=== PATIENT | female | born 1955 | race Caucasian/White ===

== ENCOUNTER 2022-10-01 12:37 | Outpatient (RCR) | payer MEDICARE, OTHER, SELFPAY | END 2022-10-27 13:42 | disposition home or self-care (01) | LOC: PT 12:37 | PROVIDERS: PCP Family Medicine; Visit Provider Family Medicine | DX: M54.9 Dorsalgia, unspecified (principal); M54.2 Cervicalgia; M25.531 Pain in right wrist | CPT/HCPCS: 97010; 97110; 97140; 97161 ==

== ENCOUNTER 2022-10-21 12:03 | Outpatient (RCR) | payer MEDICARE, OTHER, SELFPAY | END 2022-11-18 16:30 | disposition home or self-care (01) | LOC: OT 12:03 | PROVIDERS: PCP Family Medicine; Visit Provider Family Medicine | DX: M25.531 Pain in right wrist (principal) | CPT/HCPCS: 97018; 97140; 97165; 97530; G0283 ==

== ENCOUNTER 2023-05-12 11:22 | Outpatient (OUT) | payer MEDICARE, OTHER, SELFPAY ==
--- NOTE | 2023-05-12 11:33 | MM_ITS ---
Patient Name: FATUMA OLIVAS MR#: [id number] : 1955 Exam Date: 05/12/2023 Ordering Doctor: DR Mikey Preston . RADIOLOGY REPORT PROCEDURE: MM TOMOSYNTHESIS SCREENING BI COMPARISON: MAMMO SCREEN DIG SHERINE, 02/15/2012. INDICATIONS: screening Calculator Name NCI Breast Cancer Risk Assessment Tool 5 Year Breast Cancer Risk 1.70% Lifetime Breast Cancer Risk 5.70% Personal Breast Cancer No Personal Ovarian Cancer No Treatments None Family Cancers Mother with lung cancer at age 74; Father with lung cancer at age 45. LOCATION: [facility] BREAST COMPOSITION: Scattered areas fibroglandular density. FINDINGS: DIAGNOSTIC CATEGORY 1--NEGATIVE. RIGHT BREAST: No significant suspicious finding. No significant change has occurred. LEFT BREAST: No significant suspicious finding. No significant change has occurred. RECOMMENDATIONS: ROUTINE MAMMOGRAM AND CLINICAL EVALUATION IN 12 MONTHS. PLEASE NOTE: A NORMAL MAMMOGRAM DOES NOT EXCLUDE THE POSSIBILITY OF BREAST CANCER. A CLINICALLY SUSPICIOUS PALPABLE LUMP SHOULD BE BIOPSIED. Dictated by: Cesar Joshua M.D. on 05/12/2023 at 15:43 Approved by: Cesar Joshua M.D. on 05/12/2023 at 15:45
[2023-05-12 11:51] LABS: Estimated Average Glucose 100 mg/dL; Glycohemoglobin A1C 5.1 % (4.5-6.2)
== END 2023-05-12 11:23 | disposition home or self-care (01) ==
LOC: LAB 11:22
PROVIDERS: PCP Family Medicine; Visit Provider Family Medicine
DX: E11.65 Type 2 diabetes mellitus with hyperglycemia (principal); Z12.31 Encounter for screening mammogram for malignant neoplasm of breast; Z80.1 Family history of malignant neoplasm of trachea, bronchus and lung
CPT/HCPCS: 36415; 77063; 77067; 83036

== ENCOUNTER 2023-06-15 13:29 | Outpatient (OUT) | payer MEDICARE, SELFPAY ==
--- OUTSIDE RECORDS SUMMARY | 2023-06-15 13:37 | XMS_ITS | CCD ---
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 Name Role Phone SAMANTHA, DR ALDO Keith Attending Unavailable NADERER, DR ALDO Keith Admitting Unavailable NADERER, DR ALDO Keith Primary Care Unavailable NADERER, DR ALDO Keith Attending Unavailable NADERER, DR ALDO Keith Admitting Unavailable WEST, DR SUNNY Belle Consulting Unavailable NADERER, DR ALDO Keith Primary Care Unavailable NADERER, DR ALDO Keith Consulting Unavailable NADERER, DR ALDO Keith Consulting Unavailable NADERER, DR ALDO Keith Attending Unavailable NADERER, DR ALDO Keith Admitting Unavailable NADERER, DR ALDO Keith Primary Care Unavailable ISMAEL, GUMARO Consulting Unavailable NADERER, ALDO Attending Unavailable Naderer Aldo MORRISON Primary Care Provider Allergies Allergy Classification Reported Allergen(s) Allergy Type Date of Onset Reaction(s) Facility (2 sources) Amino Acids Drug Allergy 5 [facility] Repository (1 source) Penicillins Drug allergy (disorder) 5 [facility] (2 sources) Verapamil Drug Allergy 5 [facility] (1 source) Angiotensin-conve rting enzyme inhibitor agent Drug Allergy 4 Unknown [facility] (1 source) Influenza Vaccines Drug Allergy 4 Unknown [facility] (1 source) Lisinopril Propensity to adverse reactions 4 Cough [facility] (1 source) Nortriptyline Drug Allergy 4 Unknown [facility] (1 source) Penicillins Drug Allergy 4 Unknown [facility] (1 source) Verapamil Drug Allergy 4 Other [facility] Medications Current Medications Medication Drug Class(es) Dates Sig (Normalized) Sig (Original) [id number] 200 actuat albuterol 0.09 mg/actuat metered dose inhaler (1 source) beta2-Adrenergic Agonist take 2 puff(s) by inhalation every four hours for wheezing albuterol HFA 90 mcg/act inhaler Inhale 2 puffs every 4 (four) hours if needed for wheezing 0 Active busPIRone hydrochloride 30 mg oral tablet (1 source) Start: 04-29-2023 take 1 tablet by mouth twice daily busPIRone (Buspar) 30 MG tablet Indications: Anxiety Take 1 tablet by mouth twice daily 180 tablet 3 04/29/2023 Active carvedilol 25 mg oral tablet (1 source) alpha-Adrenergic Dang, beta-Adrenergic Dang Start: 04-29-2023 take 1 tablet by mouth twice daily carvedilol (Coreg) 25 MG tablet Indications: Primary hypertension (CMS/HCC) Take 1 tablet by mouth twice daily 180 tablet 3 04/29/2023 Active celecoxib 200 mg oral capsule (1 source) Nonsteroidal Anti-inflammatory Drug Start: 04-29-2023 take 1 capsule by mouth twice daily celecoxib (CeleBREX) 200 MG capsule Indications: DDD (degenerative disc disease), lumbar Take 1 capsule by mouth twice daily 180 capsule 3 04/29/2023 Active estradiol 2 mg oral tablet (1 source) Estrogen Start: 02-03-2023 take 1 tablet by mouth in the morning estradiol (Estrace) 2 MG tablet Take 1 tablet by mouth in the morning. 0 02/03/2023 Active FLUoxetine 20 mg oral capsule (1 source) Serotonin Reuptake Inhibitor Start: 04-29-2023 take 1 capsule by mouth once daily FLUoxetine (PROzac) 20 MG capsule Indications: Depression, unspecified depression type (CMS/HCC) Take 1 capsule by mouth once daily 90 capsule 3 04/29/2023 Active ketorolac tromethamine 5 mg/ml ophthalmic solution (1 source) Nonsteroidal Anti-inflammatory Drug, Cyclooxygenase Inhibitor Start: 03-29-2023 ketorolac (Acular) 0.5 % ophthalmic solution Administer 1 drop into both eyes in the morning and 1 drop at noon and 1 drop in the evening and 1 drop before bedtime. 0 03/29/2023 Active losartan potassium 50 mg oral tablet (1 source) Angiotensin 2 Receptor Dang Start: 02-03-2023 take 1 tablet by mouth in the morning losartan (Cozaar) 50 MG tablet Take 1 tablet by mouth in the morning. 0 02/03/2023 Active pantoprazole 40 mg delayed release oral tablet (1 source) Proton Pump Inhibitor Start: 02-03-2023 take 1 tablet by mouth in the morning pantoprazole (ProtoNix) 40 MG EC tablet Take 1 tablet by mouth in the morning. 0 02/03/2023 Active microencapsulated potassium chloride 20 meq extended release oral tablet (2 sources) Start: 06-14-2023 take 1 tablet by mouth in the morning potassium chloride CR (Klor-Con M20) 20 MEQ ER tablet Indications: Hypokalemia Take 1 tablet (20 mEq) by mouth in the morning and 1 tablet (20 mEq) before bedtime. 180 tablet 3 06/14/2023 Active Start: 11-02-2022 End: 06-14-2023 take 1 tablet by mouth in the morning potassium chloride CR (Klor-Con M20) 20 MEQ ER tablet Take 1 tablet by mouth in the morning and 1 tablet before bedtime. 0 11/02/2022 06/14/2023 Discontinued (Reorder) rosuvastatin calcium 20 mg oral tablet (1 source) HMG-CoA Reductase Inhibitor Start: 02-03-2023 take 1 tablet by mouth at bedtime rosuvastatin (Crestor) 20 MG tablet Take 1 tablet by mouth at bedtime 0 02/03/2023 Active traMADol hydrochloride 50 mg oral tablet (1 source) Opioid Agonist Start: 03-30-2023 take 1 tablet by mouth every six hours as needed traMADol (Ultram) 50 MG tablet Take 1 tablet by mouth every 6 (six) hours if needed 0 03/30/2023 Active traZODone hydrochloride 100 mg oral tablet (1 source) Serotonin Reuptake Inhibitor Start: 04-29-2023 take 1 tablet by mouth at bedtime traZODone (Desyrel) 100 MG tablet Indications: Primary insomnia TAKE 1 TABLET BY MOUTH AT BEDTIME 90 tablet 3 04/29/2023 Active zolpidem tartrate 10 mg oral tablet (2 sources) gamma-Aminobutyr ic Acid-ergic Agonist Start: 04-29-2023 End: 06-14-2023 take 1 tablet by mouth at bedtime zolpidem (Ambien) 10 MG tablet Indications: Primary insomnia Take 1 tablet (10 mg) by mouth at bedtime 90 tablet 1 06/14/2023 Active Problems Problem Classification Problem Date Documented Date Episodic/Chronic Anxiety disorders (1 source) Generalized anxiety disorder; Translations: [Generalized anxiety disorder] Onset: 05-10-2023 05-10-2023 Chronic Conditions associated with dizziness or vertigo (1 source) Vertigo; Translations: [Dizziness and giddiness] Onset: 05-10-2023 05-10-2023 Episodic Diabetes mellitus with complications (1 source) Type 2 diabetes mellitus; Translations: [Type 2 diabetes mellitus with hyperglycemia] Onset: 05-10-2023 05-10-2023 Chronic Disorders of lipid metabolism (2 sources) Hyperlipidemia, unspecified; Translations: [Dyslipidemia] Onset: 09-19-2022 05-10-2023 Chronic Esophageal disorders (1 source) Gastroesophageal reflux disease; Translations: [Gastro-esophageal reflux disease without esophagitis] Onset: 05-10-2023 05-10-2023 Chronic Essential hypertension (5 sources) Essential (primary) hypertension; Translations: [Benign hypertension] Onset: 09-17-2022 Chronic Fluid and electrolyte disorders (2 sources) Hypokalemia; Translations: [Hypokalemia] Onset: 05-10-2023 06-14-2023 Episodic Glaucoma (1 source) Primary open angle glaucoma; Translations: [Primary open-angle glaucoma, unspecified eye, stage unspecified] Onset: 12-13-2013 05-10-2023 Chronic Miscellaneous mental health disorders (2 sources) Primary insomnia; Translations: [Primary insomnia] Onset: 05-10-2023 06-14-2023 Chronic Other aftercare (1 source) Other terminal superintendent (current) drug therapy; Translations: [OTH SNF CURRENT DRUG THERAPY] Onset: 09-19-2022 Episodic Other non-traumatic joint disorders (1 source) Pain in right wrist; Translations: [PAIN IN RIGHT WRIST] Onset: 09-19-2022 Episodic Other non-traumatic joint disorders (1 source) Pain in right knee; Translations: [Pain in joint, lower leg] Onset: 05-10-2023 05-10-2023 Episodic Spondylosis; intervertebral disc disorders; other back problems (7 sources) Other cervical disc degeneration, unspecified cervical region; Translations: [Other intervertebral disc degeneration, lumbar region] Onset: 09-19-2022 Chronic Spondylosis; intervertebral disc disorders; other back problems (1 source) Degenerative cervical spinal stenosis; Translations: [Spinal stenosis, cervical region] Onset: 05-10-2023 05-10-2023 Episodic Thyroid disorders (2 sources) Hypothyroidism, unspecified; Translations: [Acquired hypothyroidism] Onset: 09-19-2022 05-10-2023 Chronic Results Test Name Value Interpretation Reference Range Facility MRI CSPINE WO CONon 09-26-19 23 MRI CSPINE WO CON EXAMINATION: MRI CSPINE WO CON HISTORY: Degeneration of cervical intervertebral disc COMPARISON: No relevant comparison available. TECHNIQUE: A variety of imaging planes and parameters were utilized for visualization of suspected pathology. FINDINGS: CRANIOCERVICAL AREA: Normal foramen magnum with no Chiari malformation. PARASPINAL AREA: Normal with no visible mass. BONES: Normal alignment with no acute fracture or spondylolisthesis. Signal dropout C5-C6 from anterior fixation hardware CORD: Normal caliber, contour, and signal intensity. CERVICAL DISC LEVELS: C2-C3: No significant disc/facet abnormality, spinal stenosis, or foraminal stenosis. C3-C4: No significant disc/facet abnormality, spinal stenosis, or foraminal stenosis. C4-C5: No significant disc/facet abnormality, spinal stenosis, or foraminal stenosis. C5-C6: Signal dropout from susceptibility artifact limits evaluation C6-C7: No significant disc/facet abnormality, spinal stenosis, or foraminal stenosis. C7-T1:. No significant disc/facet abnormality, spinal stenosis, or foraminal stenosis. IMPRESSION: Signal dropout limiting evaluation of C5-C6 No central or foraminal stenosis observed Electronically authenticated by: SUNNY VIRAMONTES Date: 2022-09-25 12:52 Normal [facility] MRI LSPINE WO CONon 09-26-19 23 MRI LSPINE WO CON EXAMINATION: MRI LSPINE WO CON HISTORY: Degeneration of lumbar intervertebral disc COMPARISON: No relevant comparison available. TECHNIQUE: A variety of imaging planes and parameters were utilized for visualization of suspected pathology. FINDINGS: For the purposes of numbering, sagittal T2 image # T2 extends from the T10 vertebral body superiorly to the S4 level inferiorly. PARASPINAL AREA: Normal with no visible mass. BONES: Normal alignment with no acute fracture or spondylolisthesis. Decreased T1 increased T2 and STIR signal lower endplate of L2 of endplate of L3, Modic 1 changes. Heterogeneous appearance of the marrow likely age-related change. Moderate spondylosis and facet osteoarthropathy CORD/CAUDA EQUINA: Normal caliber, contour, and signal intensity. DISC LEVELS: 12-L1: Disc collapse with endplate sclerosis. Mild diffuse disc/osteophyte complex. No central or foraminal stenosis L1-L2: Moderate disc space narrowing and disc desiccation. Mild diffuse disc/osteophyte complex. No central or foraminal stenosis L2-L3: Moderate to severe disc space narrowing left greater than right with endplate sclerosis. Moderate diffuse disc/osteophyte complex and ligamentum flavum hypertrophy and facet osteoarthropathy. Mild trefoil narrowing of the central canal. No right foraminal stenosis. Moderate narrowing of the left neural foramen L3-L4: Moderate to severe disc space narrowing left greater than right with endplate sclerosis. Moderate diffuse disc/osteophyte complex and ligamentum flavum hypertrophy and facet osteoarthropathy. Mild trefoil narrowing of the central canal. Moderate bilateral foraminal stenosis L4-L5: Disc collapse with extensive endplate sclerosis. Moderate diffuse disc/osteophyte complex and ligamentum flavum hypertrophy and facet osteoarthropathy. Mild central canal stenosis. Severe right and moderate left foraminal stenosis L5-S1: Disc space narrowing and disc desiccation. Severe right facet osteoarthropathy. No central canal or left foraminal stenosis. Moderate narrowing of the right neural foramen IMPRESSION: Significant degenerative changes with central and foraminal stenosis at multiple levels as detailed above Electronically authenticated by: SUNNY VIRAMONTES Date: 2022-09-25 12:04 Normal [facility] CBC AUTO DIFFon 09-17-2022 BASO # 0.0 103/ul Normal 0.0-0.1 [facility] Comment on above: Performed By: #### C BC ####[facility] [id number] [address]DrLeah Moreno Basophils/100 WBC (Bld) 0.4 % Normal 0.2-2.0 [facility] Comment on above: Performed By: #### C BC ####[facility] [address] [address]DrLeah Moreno EO # 0.2 103/ul Normal 0.0-0.7 [facility] Comment on above: Performed By: #### C BC ####[facility] [address] [place], [place] [address]Dr. Paola Moreno Eosinophils/100 WBC (Bld) 2.9 % Normal 0.9-7.0 [facility] Comment on above: Performed By: #### C BC ####[facility] [address] [place], [place] [address]Dr. Paola Moreno Erythrocyte distribution width (RBC) [Ratio] 13.6 % Normal 11.0-15.0 [facility] Comment on above: Performed By: #### C BC ####[facility] [address] [place], [place] [address]Dr. Paola Moreno Hematocrit (Bld) [Volume fraction] 44.1 % Normal 36.0-48.0 [facility] Comment on above: Performed By: #### C BC ####[facility] [address] [place], [place] [address]Dr. Paola Moreno Hemoglobin (Bld) [Mass/Vol] 14.6 g/dL Normal 12.0-16.0 [facility] Comment on above: Performed By: #### C BC ####[facility] [address] [place], [place] [address]Dr. Paola Moreno IG # 0.03 10e3/ul Normal 0.00-0.03 [facility] Comment on above: Performed By: #### C BC ####[facility] [address] [place], [place] [address]Dr. Paola Josh IG % 0.4 % Normal 0.0-0.5 [facility] Comment on above: Performed By: #### C BC ####[facility] [address] [place], [place] [address]Dr. Paola Moreno LYMPH # 1.4 103/ul Normal 1.2-3.8 [facility] Comment on above: Performed By: #### C BC ####[facility] [address] [place], [place] [address]Dr. Paola Moreno Lymphocytes/100 WBC (Bld) 17.2 % Critically low 20.5-60.0 [facility] Comment on above: Performed By: #### C BC ####[facility] [address] [address]Dr. Paola Moreno MANUAL DIFF REQ NO Normal [facility] Comment on above: Performed By: #### C BC ####[facility] [address] [address]Dr. Paola Moreno MCH (RBC) [Entitic mass] 29.6 pg Normal 26.7-34.0 [facility] Comment on above: Performed By: #### C BC ####[facility] [address] [place], [place] [address]Dr. Paola Moreno MCHC (RBC) [Mass/Vol] 33.1 g/dL Normal 29.9-35.2 [facility] Comment on above: Performed By: #### C BC ####[facility] [address] [place], [place] [address]Dr. Paola Moreno MCV (RBC) [Entitic vol] 89.3 fL Normal 81.0-99.0 [facility] Comment on above: Performed By: #### C BC ####[facility] [address] [place], [place] [address]Dr. Paola Moreno MONO # 0.7 103/ul Normal 0.3-0.8 [facility] Comment on above: Performed By: #### C BC ####[facility] [address] [place], [place] [address]Dr. Paola Moreno Monocytes/100 WBC (Bld) 7.8 % Normal 1.7-12.0 [facility] Comment on above: Performed By: #### C BC ####[facility] [address] [place], [place] [address]Dr. Paola Moreno NEUT # 6.0 103/ul Normal 1.4-6.5 [facility] Comment on above: Performed By: #### C BC ####[facility] [address] [place], [place] [address]Dr. Paola Moreno Neutrophils/100 WBC (Bld) 71.3 % Normal 43.0-75.0 [facility] Comment on above: Performed By: #### C BC ####[facility] [address] [address]Dr. Paola Moreno Platelet mean volume (Bld) [Entitic vol] 10.6 fL Normal 9.5-13.5 [facility] Comment on above: Performed By: #### C BC ####[facility] [address] [address]Dr. Paola Moreno PLT 191 103/ul Normal 150-450 [facility] Comment on above: Performed By: #### C BC ####[facility] [address] [address]Dr. Paola Moreno RBC 4.94 106/ul Normal 4.20-5.40 [facility] Comment on above: Performed By: #### C BC ####[facility] [address] [address]DrLeah Moreno WBC 8.4 103/ul Normal 4.0-11.0 [facility] Comment on above: Performed By: #### C BC ####[facility] [address] [address]Dr. Paola Moreno FREE T3on 09-17-2022 FREE T3 2.55 pg/mlL Normal 2.18-3.98 [facility] Comment on above: Performed By: #### T SH, LIPID, BMP, LIVER, FT3 #### [facility] [address] [address] [address] Paola Moreno FREE T4on 09-17-2022 Free T4 [Mass/Vol] 0.84 ng/dL Normal 0.76-1.46 [facility] Comment on above: Performed By: #### F T4 #### [facility] [address] [place] [address] Dr. Paola Moreno GLYCOHEMOGLOBIN A1Con 2022 ADA RECOMMENDATION SEE BELOW Normal [facility] Comment on above: Result Comment: ADA RECOMMENDED LIMIT 4.0 - 6.0 ADA THERAPEUTIC TARGET < 7.0 ACTION SUGGESTED > 7.0 Performed By: #### A 1C #### [facility] [address] [address] [address] Paola Moreno Glucose [Mass/Vol] 85 mg/dL Normal [facility] Comment on above: Performed By: #### A 1C #### [facility] [address] [address] [address] Paola Moreno HbA1c (Bld) [Mass fraction] 4.6 % Normal 4.5-6.2 [facility] Comment on above: Performed By: #### A 1C #### [facility] [address] [place] [address] Dr. Paola Moreno LIPID PROFILEon 09-17-2022 CHOL-HDL RATIO NORM SEE BELOW Normal [facility] Comment on above: Result Comment: 3.3 - 4.4 LOW RISK 4.4 - 7.1 AVERAGE RISK 7.1 - 11.0 MODERATE RISK >11.0 HIGH RISK Performed By: #### T SH, LIPID, BMP, LIVER, FT3 #### [facility] [address] [address] [address] Paola Moreno Cholesterol [Mass/Vol] 162 mg/dL Normal <=200 [facility] Comment on above: Performed By: #### T SH, LIPID, BMP, LIVER, FT3 #### [facility] [address] [address] [address] Paola Moreno Cholesterol in HDL [Mass/Vol] 88 mg/dL Critically high 40-60 [facility] Comment on above: Performed By: #### T SH, LIPID, BMP, LIVER, FT3 #### [facility] [address] [address] [address] Paola Moreno Cholesterol in LDL [Mass/Vol] 38.2 mg/dL Normal [facility] Comment on above: Performed By: #### T SH, LIPID, BMP, LIVER, FT3 #### [facility] [address] [address] [address] Paola Moreno Cholesterol.total/Cho lesterol in HDL [Mass ratio] 1.8 {ratio} Normal [facility] Comment on above: Performed By: #### T SH, LIPID, BMP, LIVER, FT3 #### [facility] [address] [address] [address] Paola Moreno HDL NORMAL > or = 60 mg/dl - LO W CARDIOVASCULAR RISK <40 mg/dl - HIGH CARDIOVASCULAR RISK Normal [facility] Comment on above: Performed By: #### T SH, LIPID, BMP, LIVER, FT3 #### [facility] [address] [address] [address] Paola Moreno LDL CALC NORMAL SEE BELOW Normal [facility] Comment on above: Result Comment: <100 mg/dl OPTIMAL 100 - 129 mg/dl NEAR OR ABOVE OPTIMAL 130 - 159 mg/dl BORDERLINE HIGH 160 - 189 mg/dl HIGH >190 mg/dl VERY HIGH Performed By: #### T SH, LIPID, BMP, LIVER, FT3 #### [facility] [address] [address] [address] Paola Moreno Triglyceride [Mass/Vol] 179 mg/dL Critically high <=150 [facility] Comment on above: Performed By: #### T SH, LIPID, BMP, LIVER, FT3 #### [facility] [address] [address] [address] Paola Moreno VLDL CALC 35.8 mg/dL Normal [facility] Comment on above: Performed By: #### T SH, LIPID, BMP, LIVER, FT3 #### [facility] [address] [address] [address] Paola Moreno LIVER PROFILEon 09-17-2022 Albumin [Mass/Vol] 3.3 g/dL Critically low 3.4-5.0 [facility] Comment on above: Performed By: #### T SH, LIPID, BMP, LIVER, FT3 #### [facility] [address] [address] [address] Paola Moreno Albumin/Globulin [Mass ratio] 0.8 {ratio} Normal [facility] Comment on above: Performed By: #### T SH, LIPID, BMP, LIVER, FT3 #### [facility] [address] [address] [address] Paola Moreno ALP [Catalytic activity/Vol] 69 U/L Normal 46-116 [facility] Comment on above: Performed By: #### T SH, LIPID, BMP, LIVER, FT3 #### [facility] [address] [place] [address] Dr. Paola Moreno ALT [Catalytic activity/Vol] 24 U/L Normal 14-59 [facility] Comment on above: Performed By: #### T SH, LIPID, BMP, LIVER, FT3 #### [facility] [address] [place] [address] Dr. Paola Moreno AST [Catalytic activity/Vol] 20 U/L Normal 15-37 [facility] Comment on above: Performed By: #### T SH, LIPID, BMP, LIVER, FT3 #### [facility] [address] [place] [address] Dr. Paola Moreno BILI, CONJUGATED 0.1 mg/dL Normal 0.0-0.2 [facility] Comment on above: Performed By: #### T SH, LIPID, BMP, LIVER, FT3 #### [facility] [address] [place] [address] Dr. Paola Moreno Bilirubin [Mass/Vol] 0.4 mg/dL Normal 0.2-1.0 [facility] Comment on above: Performed By: #### T SH, LIPID, BMP, LIVER, FT3 #### [facility] [address] [place] [address] Dr. Paola Moreno Globulin (S) [Mass/Vol] 4.0 g/dL Normal [facility] Comment on above: Performed By: #### T SH, LIPID, BMP, LIVER, FT3 #### [facility] [address] [place] [address] Dr. Paola Moreno Protein [Mass/Vol] 7.3 g/dL Normal 6.4-8.2 [facility] Comment on above: Performed By: #### T SH, LIPID, BMP, LIVER, FT3 #### [facility] [address] [place] [address] Dr. Paola Moreno PROF CHEM 8 (BAS METB)on Anion gap [Moles/Vol] 11.8 mmol/L Normal Th e [facility] Comment on above: Performed By: #### T SH, LIPID, BMP, LIVER, FT3 #### [facility] [address] [address] [address] Paola Moreno Calcium [Mass/Vol] 9.0 mg/dL Normal 8.5-10.1 [facility] Comment on above: Performed By: #### T SH, LIPID, BMP, LIVER, FT3 #### [facility] [address] [address] [address] Paola Moreno Chloride [Moles/Vol] 103 mmol/L Normal 98-107 [facility] Comment on above: Performed By: #### T SH, LIPID, BMP, LIVER, FT3 #### [facility] [address] [place] [address] Dr. Paola Moreno CO2 [Moles/Vol] 30.5 mmol/L Normal 21.0-32.0 [facility] Comment on above: Performed By: #### T SH, LIPID, BMP, LIVER, FT3 #### [facility] [address] [place] [address] Dr. Paola Moreno Creatinine [Mass/Vol] 0.83 mg/dL Normal 0.55-1.02 [facility] Comment on above: Performed By: #### T SH, LIPID, BMP, LIVER, FT3 #### [facility] [address] [place] [address] Dr. Paola Moreno EGFR-AF ANGOLAN >60 Normal >=60 [facility] Comment on above: Performed By: #### T SH, LIPID, BMP, LIVER, FT3 #### [facility] [address] [place] [address] Dr. Paola Moreno EGFR-NON AF ANGOLAN >60 Normal >=60 [facility] Comment on above: Performed By: #### T SH, LIPID, BMP, LIVER, FT3 #### [facility] [address] [address] [address] Paola Moreno Glucose [Mass/Vol] 122 mg/dL Critically high 74-106 [facility] Comment on above: Performed By: #### T SH, LIPID, BMP, LIVER, FT3 #### [facility] [address] [address] [address] Paola Moreno Potassium [Moles/Vol] 4.3 mmol/L Normal 3.5-5.1 [facility] Comment on above: Performed By: #### T SH, LIPID, BMP, LIVER, FT3 #### [facility] [address] [address] [address] Paola Moreno Sodium [Moles/Vol] 141 mmol/L Normal 136-145 [facility] Comment on above: Performed By: #### T SH, LIPID, BMP, LIVER, FT3 #### [facility] [address] [address] [address] Paola Moreno Urea nitrogen [Mass/Vol] 12.0 mg/dL Normal 7.0-18.0 [facility] Comment on above: Performed By: #### T SH, LIPID, BMP, LIVER, FT3 #### [facility] [address] [address] [address] Paola Moreno Urea nitrogen/Creatinine [Mass ratio] 14.5 mg/mg Normal [facility] Comment on above: Performed By: #### T SH, LIPID, BMP, LIVER, FT3 #### [facility] [address] [place] [address] Dr. Paola Moreno TSHon 09-17-2022 TSH 3.671 uIU/mL Normal 0.358-3.740 [facility] Comment on above: Performed By: #### T SH, LIPID, BMP, LIVER, FT3 #### [facility] [address] [place] [address] Dr. Paola Moreno XR WRIST RT MIN 3 Von 2022 XR WRIST RT MIN 3 V EXAM: XR WRIST RT GA N 3 V HISTORY: Pain of right wrist COMPARISON: None. TECHNIQUE: 3 views of the right wrist were obtained. FINDINGS: A small calcification or fracture fragment is seen along the dorsal aspect of the proximal carpal row in the lateral view. This may be an acute chip fracture. There is no other evidence of a fracture dislocation about the wrist. Ulnar minus variance is present. There is moderate narrowing of the joint spaces at the distal scaphoid bone. There is prominent narrowing at the first carpometacarpal joint, accompanied by osteophytes and mild radial subluxation of the base of the first metacarpal bone. IMPRESSION: A small calcification is seen dorsal to the proximal carpal row, which may be a small acute fracture fragment. There is no other evidence of an acute fracture or dislocation. Some degenerative changes are present, most probably seen at the joint space of the distal scaphoid bone and at the first carpometacarpal joint. Comparison with a previous study may be helpful in determining the chronicity of these findings. Electronically authenticated by: GUMARO GUEVARA Date: 2022-09-17 12:41 Normal [facility] Encounters Encounter Date Encounter Type Care Provider Facility Start: 06-14-2023 Refill Aldo Jaramillo Work Phone: [facility] Comment on above: Hypokalemia (Primary Dx); Primary insomnia Start: 05-10-2023 End: 05-10-2023 ambulatory ALDO SINGH Not Available Start: 10-01-[address] ALDO SINGH Facil ity:[facility]1 Start: 09-25-2022 End: 09-26-[address] ALDO SINGH Facility:[facility] Start: 09-17-2022 End: 09-18-[address] ALDO SINGH Facility:[facility] Procedures Date Procedure Procedure Detail Performing Clinician Start: 05-12-2023 Mammography Aldo mcguire MD Work Phone: Plan of Treatment Date Care Activity Detail Author Start: 05-12-2024 Screening for malign ant neoplasm of breast Mammogram [facility] Start: 11-25-2023 End: 11-25-2023 Patient encounter procedure 11/25/2023 11:15 AM EDT Office Visit [facility] [address] [place] [address] Aldo Singh MD [address] [place] [id number] [facility] Start: 01-01-2023 Influenza vaccination Influenza Vacc ine (#1) [facility] Start: 12-04-1974 Urine screening for protein Diabetes: Urine Protein Screening [facility] Start: 12-04-1965 Glaucoma screening Diabetes: R etinopathy Screening [facility] Start: 12-04-1961 Pneumococcal Vaccine : 65+ Years (1 - PCV) Pneumococcal Vaccine: 65+ Years (1 - PCV) [facility] Start: 1955 Hemoglobin A1c measurement Diabetes: Hemoglobin A1C [facility] Start: 1955 Medicare Annual Well ness (AWV) Medicare Annual Wellness (AWV) [facility] Start: 1955 Screening for malign ant neoplasm of colon [facility] Payers Date Payer Category Payer Medicare MEDICARE MEDICAR E PART B [id number] 2020-Present [address] [address] [place] [address] Medicare [id number] 2020 Unknown BCBS BCBS [id number] 2020-Present [phone] [address] [place] [address] [id number] 1959 Medicare [id number] 1959 Medicare [id number] 1955 Unknown [id number] 1955 Unknown [id number] 1955 Unknown [id number] 1955 Unknown [id number] Social History Date Type Detail Facility Start: 05-10-2023 Tobacco smoking stat [facility] Ex-smoker [facility] End: 05-03-2013 History of tobacco use Current smoker [facility] End: 05-03-2013 History of tobacco use Cigarette Smoker [facility] Start: 05-10-2023 Tobacco use and exposure Smokeless t obacco non-user [facility] Start: 05-10-2023 History of Social function [facility] Start: 05-10-2023 Tobacco use panel [facility] Start: 1955 Sex Assigned At Not on file [facility] Evaluation note Note Date & Type Note Facility Evaluation note Diagnosis Hypokalemia- Primary Hypopotassemia Primary insomnia Persistent disorder of initiating or maintaining sleep documented in this encounter [facility] Summary Purpose Family History No Family History Records FoundNo Family History Records Found Advance Directives No Advanced Directives Records FoundNo Advanced Directives Records Found Additional Source Comments INFORMATION SOURCE (unrecogn ized section and content) DATE CREATED AUTHOR 10/09/2022 [facility] DATE CREATED AUTHOR AUTHOR'S ORGANIZ ATION 05/11/2023 [facility] EPIC Reason for Visit (unrecogniz ed section and content) Reason Onset Date Comments Med Refill 06/14/2023 Care Teams (unrecognized sec tion and content) 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 This clinical summary was aggregated from multiple sources. Caution should be exercised in using it in the provision of clinical care. This summary normalizes information from multiple sources, and as a consequence, information in this document may materially change the coding, format and clinical context of patient data. In addition, data may be omitted in some cases. CLINICAL DECISIONS SHOULD BE BASED ON THE PRIMARY CLINICAL RECORDS. [facility]. provides no warranty or guarantee of the accuracy or completeness of information in this document.
[2023-06-15 14:33] LABS: Anion Gap 11.2; BUN Creatinine Ratio 15.3; Carbon Dioxide 28.3 mmol/L (21.0-32.0); Chloride 102 mmol/L (98-107); Estimated GFR (African America >60 (>=60); Estimated GFR (Non-African Ame >60 (>=60); Glucose 105 mg/dL (74-106); Potassium 4.5 mmol/L (3.5-5.1); Sodium 137 mmol/L (136-145)
== END 2023-06-15 13:30 | disposition home or self-care (01) ==
LOC: LAB 13:29
PROVIDERS: PCP Family Medicine; Visit Provider Family Medicine
DX: Z79.899 Other long term (current) drug therapy (principal)
CPT/HCPCS: 36415; 80048

== ENCOUNTER 2023-11-30 12:41 | Outpatient (OUT) | payer MEDICARE, SELFPAY ==
[2023-11-30 13:33] LABS: Basophils Percent Auto 0.5 % (0.2-2.0); Eosinophils Absolute Auto 0.2 10^3/uL (0.0-0.7); Eosinophils Percent Auto 3.1 % (0.9-7.0); Hematocrit 42.6 % (36.0-48.0); Hemoglobin 14.2 g/dL (12.0-16.0); Immature Granulocytes Abs Auto 0.02 10^3/uL (0.00-0.03); Immature Granulocytes Pct Auto 0.4 % (0.0-0.5); Lymphocytes Absolute Auto 1.3 10^3/uL (1.2-3.8); Lymphocytes Percent Auto 23.7 % (20.5-60.0); Mean Corpuscular HGB Conc 33.3 g/dL (29.9-35.2); Mean Corpuscular Hemoglobin 28.9 pg (26.7-34.0); Mean Corpuscular Volume 86.6 fL (81.0-99.0); Mean Platelet Volume 10.8 fL (9.5-13.5); Monocytes Absolute Auto 0.4 10^3/uL (0.3-0.8); Neutrophils Absolute Auto 3.6 10^3/uL (1.4-6.5); Neutrophils Percent Auto 65.3 % (43.0-75.0); Platelet Count 204 10^3/uL (150-450); Red Blood Count 4.92 10^6/uL (4.20-5.40); Red Cell Distribution Width 13.3 % (11.0-15.0); White Blood Count 5.6 10^3/uL (4.0-11.0)
[2023-11-30 13:46] LABS: Microalbumin Urine Random <1.3 mg/dL (<=30.0)
[2023-11-30 13:57] LABS: Estimated Average Glucose 94 mg/dL; Glycohemoglobin A1C 4.9 % (4.5-6.2)
[2023-11-30 14:06] LABS: Free T4 0.85 ng/dL (0.76-1.46)
[2023-11-30 14:11] LABS: Alanine Aminotransferase 17 U/L (14-59); Albumin Globulin Ratio 0.9; Albumin Level 3.3 g/dL (3.4-5.0); Alkaline Phosphatase 62 U/L (46-116); Anion Gap 11.9; Aspartate Amino Transferase 18 U/L (15-37); BUN Creatinine Ratio 14.8; Bilirubin Direct 0.1 mg/dL (0.0-0.2); Bilirubin Total 0.4 mg/dL (0.2-1.0); Calcium 8.8 mg/dL (8.5-10.1); Carbon Dioxide 26.2 mmol/L (21.0-32.0); Chloride 100 mmol/L (98-107); Cholesterol 202 mg/dL (<=200); Estimated GFR (African America >60 (>=60); Estimated GFR (Non-African Ame >60 (>=60); Free T3 2.68 pg/mL (2.18-3.98); Globulin 3.7 g/dL; Glucose 118 mg/dL (74-106); HDL Cholesterol 101 mg/dL (40-60); Potassium 4.1 mmol/L (3.5-5.1); Sodium 134 mmol/L (136-145); Thyroid Stimulating Hormone 2.653 uIU/mL (0.358-3.740); Triglycerides 142 mg/dL (<=150); VLDL CHOLESTEROL 28.4 mg/dL
== END 2023-11-30 12:42 | disposition home or self-care (01) ==
LOC: LAB 12:41
PROVIDERS: PCP Family Medicine; Visit Provider Family Medicine
DX: E11.65 Type 2 diabetes mellitus with hyperglycemia (principal); I10 Essential (primary) hypertension; Z79.899 Other long term (current) drug therapy; E78.5 Hyperlipidemia, unspecified; E03.9 Hypothyroidism, unspecified
CPT/HCPCS: 36415; 80048; 80061; 80076; 82043; 83036; 84439; 84443; 84481; 85025

== ENCOUNTER 2024-01-27 12:15 | Emergency (ER) | payer MEDICARE, SELFPAY ==
[2024-01-27] VITALS (45 sets, daily range): BP systolic 150–234; BP diastolic 63–165; PULSE 54–155; TEMP 36.7; O2SAT 95–99; BMI 31.6
--- NOTE | 2024-01-27 12:34 | ED_ITS ---
HPI - Abdominal Pain General Chief Complaint: Abdominal Pain Stated Complaint: ABDOMINAL AND BACK PAIN, VOMITING Time Seen by Provider: 01/27/24 12:18 Source: patient Mode of arrival: walk-in History of Present Illness HPI narrative: 68-year-old female presents for pain in her right lower abdomen that wraps towards her back. She states she had some discomfort last night but the real pain started about 8:00 this morning. No dysuria or hematuria and she has never had a kidney stone. No trauma or fever. She threw up this morning. The pain is moderate to severe and continuous. Related Data Allergies Allergy/AdvReac Type Severity Reaction Status Date / Time ALEKS Inhibitors Allergy Severe Unknown Verified 01/27/24 12:27 influenza A (H5N1) virus Allergy Severe Unknown Verified 01/27/24 12:27 vaccine mv lisinopril Allergy Severe Cough Verified 01/27/24 12:27 nickel Allergy Severe Hives Verified 01/27/24 12:27 Penicillins Allergy Severe Unknown Verified 01/27/24 12:27 verapamil Allergy Severe Unknown Verified 01/27/24 12:27 Review of Systems ROS Narrative A ten point review of systems is negative except as noted above. Exam Narrative Exam Narrative: Nurses note and vital signs reviewed and patient is not hypoxic. General: The patient appears in no apparent distress. She appears uncomfortable. Skin: Warm, dry, no pallor noted. There is no rash noted. Head: Normocephalic, atraumatic Eye: Normal conjunctiva, no drainage Ears, Nose, Mouth, and Throat: oral mucosa is moist. Nares patent. Cardiovascular: Regular Rate and Rhythm Respiratory: Patient is in no distress, no accessory muscle use, lungs are clear to auscultation, no wheezing, rales or rhonchi Back: non-tender, no CVA tenderness bilaterally to percussion. GI: Tenderness present in the right lower abdomen without mass Musculoskeletal: The patient has no evidence of calf tenderness, no pitting edema, symmetrical pulses noted bilaterally Neurological: A&O, normal speech Psychiatric: Cooperative Constitutional Vital Signs, click to edit/add: Last Vital Signs Temp 98.1 F 01/27/24 12:18 Pulse 56 L 01/27/24 13:50 Resp 15 01/27/24 13:50 BP 162/64 H 01/27/24 13:48 Pulse Ox 99 01/27/24 12:30 O2 Del Method Room Air 01/27/24 12:18 Course Vital Signs Vital signs: Vital Signs Temperature 98.1 F 01/27/24 12:18 Pulse Rate 68 01/27/24 12:18 Respiratory Rate 22 H 01/27/24 12:18 Blood Pressure 208/88 H 01/27/24 12:18 Pulse Oximetry 98 01/27/24 12:18 Oxygen Delivery Method Room Air 01/27/24 12:18 Temperature 98.1 F 01/27/24 12:18 Pulse Rate 56 L 01/27/24 13:50 Respiratory Rate 15 01/27/24 13:50 Blood Pressure 162/64 H 01/27/24 13:48 Pulse Oximetry 99 01/27/24 12:30 Oxygen Delivery Method Room Air 01/27/24 12:18 MDM - Abdominal Pain MDM Narrative Medical decision making narrative: The patient presented with abdominal pain and is found to have incarcerated spigelian hernia. We do not have general surgery available today so the patient is being transferred to [facility]. I have spoken to Dr. Dueñas as well as ER attending there who accepts the patient. The patient is agreeable and stable for transfer. NG tube inserted here and blood work is essentially normal. Findings were discussed thoroughly with the patient. Differential Diagnosis Differential diagnosis: Likely abdominal pain, constipation, diverticulitis, gastroenteritis and small bowel obstruction Lab Data Attestation: I reviewed the patient's lab results. Labs: Lab Results 01/27/24 01/27/24 Range/Units 12:30 12:58 WBC 9.1 (4.0-11.0) 10^3/uL RBC 4.91 (4.20-5.40) 10^6/uL Hgb 14.3 (12.0-16.0) g/dL Hct 42.2 (36.0-48.0) % MCV 85.9 (81.0-99.0) fL MCH 29.1 (26.7-34.0) pg MCHC 33.9 (29.9-35.2) g/dL RDW 13.2 (11.0-15.0) % Plt Count 178 (150-450) 10^3/uL MPV 10.6 (9.5-13.5) fL Neut % (Auto) 84.7 H (43.0-75.0) % Lymph % (Auto) 11.0 L (20.5-60.0) % [place] % (Auto) 3.1 (1.7-12.0) % Eos % (Auto) 0.6 L (0.9-7.0) % Baso % (Auto) 0.3 (0.2-2.0) % Neut # (Auto) 7.7 H (1.4-6.5) 10^3/uL Lymph # (Auto) 1.0 L (1.2-3.8) 10^3/uL [place] # (Auto) 0.3 (0.3-0.8) 10^3/uL Eos # (Auto) 0.1 (0.0-0.7) 10^3/uL Baso # (Auto) 0.0 (0.0-0.1) 10^3/uL Abs Immat Gran (auto) 0.03 (0.00-0.03) 10^3/uL Imm/Tot Granulo (auto) 0.3 (0.0-0.5) % Sodium 134 L (136-145) mmol/L Potassium 4.4 (3.5-5.1) mmol/L Chloride 99 (98-107) mmol/L Carbon Dioxide 29.1 (21.0-32.0) mmol/L Anion Gap 10.3 BUN 12.0 (7.0-18.0) mg/dL Creatinine 0.84 (0.55-1.02) mg/dL Est GFR ( Amer) >60 (>=60) Est GFR (Non-Af Amer) >60 (>=60) BUN/Creatinine Ratio 14.3 Glucose 120 H (74-106) mg/dL Lactate 2.0 (0.4-2.0) mmol/L Calcium 9.8 (8.5-10.1) mg/dL Urine Color Yellow (YELLOW) Urine Clarity Clear (CLEAR) Urine pH 8.5 (5.0-9.0) Ur Specific [place] 1.020 (1.005-1.025) Urine Protein Trace (NEG/TRACE) mg/dL Urine Glucose (UA) Negative (NEGATIVE) mg/dL Urine Ketones Negative (NEGATIVE) mg/dL Urine Occult Blood Negative (NEGATIVE) Urine Nitrite Negative (NEGATIVE) Urine Bilirubin Negative (NEGATIVE) Urine Urobilinogen 0.2 (0.2-1.0) EU/dL Ur Leukocyte Esterase Negative (NEGATIVE) Urine RBC 0-2 (0-2) #/HPF Urine WBC None seen (NONE SEEN) #/HPF Ur Squamous Epith Cells Many A (NONE/RARE) #/LPF Urine Crystals None seen (None Seen) #/HPF Urine Bacteria Small A (NONE SEEN) #/HPF Urine Casts None seen (NONE SEEN) #/LPF Urine Mucus Trace A (NONE SEEN) Ur Culture Indicated? Yes Discharge Plan Discharge Chief Complaint: Abdominal Pain Clinical Impression: Spigelian hernia Patient Disposition: [facility] Time of Disposition Decision: 16:12 Discharge Location: [facility] Condition: Good Mode of Transportation: EMS
--- OUTSIDE RECORDS SUMMARY | 2024-01-27 12:35 | XMS_ITS | CCD ---
Author Organization [facility] Inform ion [facility] Care Team Providers Care Barrer And Tacker Name Role Phone SAMANTHA, DR ALDO Keith Attending Unavailable SAMANTHA, DR ALDO Keith Admitting Unavailable SAMANTHA, DR ALDO Keith Primary Care Unavailable SAMANTHA, DR ALDO Keith Attending Unavailable NADDOROTHYR, DR ALDO Keith Admitting Unavailable PHOENIX, DR SUNNY Belle Consulting Unavailable NADERER, DR ALDO Keith Primary Care Unavailable SAMANTHA, DR ALDO Keith Consulting Unavailable SAMANTHA, DR ALDO Keith Consulting Unavailable SAMANTHA, DR ALDO Keith Attending Unavailable SAMANTHA, DR ALDO Keith Admitting Unavailable NADGLENDA, DR ALDO Keith Primary Care Unavailable GUMARO GUEVARA Consulting Unavailable Aldo Singh MD Primary Care Provider ALDO SINGH Attending Unavailable SAMANTHA, ALDO Attending Unavailable CLARA CAMACHO Attending Unavailable Allergies Allergy Classification Reported Allergen(s) Allergy Type Date of Onset Reaction(s) Facility (2 sources) Amino Acids Drug Allergy 5 [facility] Rep[facility] (1 source) Penicillins Drug allergy (disorder) 5 [facility] (2 sources) Verapamil Drug Allergy 5 [facility] (2 sources) Angiotensin-conve rting enzyme inhibitor agent Drug Allergy 4 Unknown [facility] (2 sources) Influenza Vaccines Drug Allergy 4 Unknown [facility] (2 sources) Lisinopril Propensity to adverse reactions 4 Cough [facility] (2 sources) Nortriptyline Drug Allergy 4 Unknown [facility] (2 sources) Penicillins Drug Allergy 4 Unknown [facility] (2 sources) Verapamil Drug Allergy 4 Other [facility] Medications Current Medications Medication Drug Class(es) Dates Sig (Normalized) Sig (Original) [id number] 200 actuat albuterol 0.09 mg/actuat metered dose inhaler (2 sources) beta2-Adrenergic Agonist take 2 puff(s) by inhalation every four hours for wheezing albuterol HFA 90 mcg/act inhaler Inhale 2 puffs every 4 (four) hours if needed for wheezing 0 Active busPIRone hydrochloride 30 mg oral tablet (2 sources) Start: 04-29-2023 take 1 tablet by mouth twice daily busPIRone (Buspar) 30 MG tablet Indications: Anxiety Take 1 tablet by mouth twice daily 180 tablet 3 04/29/2023 Active carvedilol 25 mg oral tablet (2 sources) alpha-Adrenergic Dang, beta-Adrenergic Dang Start: 04-29-2023 take 1 tablet by mouth twice daily carvedilol (Coreg) 25 MG tablet Indications: Primary hypertension (CMS/HCC) Take 1 tablet by mouth twice daily 180 tablet 3 04/29/2023 Active celecoxib 200 mg oral capsule (2 sources) Nonsteroidal Anti-inflammatory Drug Start: 04-29-2023 take 1 capsule by mouth twice daily celecoxib (CeleBREX) 200 MG capsule Indications: DDD (degenerative disc disease), lumbar Take 1 capsule by mouth twice daily 180 capsule 3 04/29/2023 Active estradiol 2 mg oral tablet (2 sources) Estrogen Start: 02-03-2023 take 1 tablet by mouth in the morning estradiol (Estrace) 2 MG tablet Take 1 tablet by mouth in the morning. 0 02/03/2023 Active FLUoxetine 20 mg oral capsule (2 sources) Serotonin Reuptake Inhibitor Start: 04-29-2023 take 1 capsule by mouth once daily FLUoxetine (PROzac) 20 MG capsule Indications: Depression, unspecified depression type (CMS/HCC) Take 1 capsule by mouth once daily 90 capsule 3 04/29/2023 Active ketorolac tromethamine 5 mg/ml ophthalmic solution (2 sources) Nonsteroidal Anti-inflammatory Drug, Cyclooxygenase Inhibitor Start: 03-29-2023 ketorolac (Acular) 0.5 % ophthalmic solution Administer 1 drop into both eyes in the morning and 1 drop at noon and 1 drop in the evening and 1 drop before bedtime. 0 03/29/2023 Active losartan potassium 50 mg oral tablet (2 sources) Angiotensin 2 Receptor Dang Start: 02-03-2023 take 1 tablet by mouth in the morning losartan (Cozaar) 50 MG tablet Take 1 tablet by mouth in the morning. 0 02/03/2023 Active pantoprazole 40 mg delayed release oral tablet (2 sources) Proton Pump Inhibitor Start: 02-03-2023 take 1 tablet by mouth in the morning pantoprazole (ProtoNix) 40 MG EC tablet Take 1 tablet by mouth in the morning. 0 02/03/2023 Active microencapsulated potassium chloride 20 meq extended release oral tablet (3 sources) Start: 06-14-2023 take 1 tablet by [...] (Reorder) rosuvastatin calcium 20 mg oral tablet (2 sources) HMG-CoA Reductase Inhibitor Start: 02-03-2023 take 1 tablet by mouth at bedtime rosuvastatin (Crestor) 20 MG tablet Take 1 tablet by mouth at bedtime 0 02/03/2023 Active traMADol hydrochloride 50 mg oral tablet (2 sources) Opioid Agonist Start: 03-30-2023 take 1 tablet by mouth every six hours as needed traMADol (Ultram) 50 MG tablet Take 1 tablet by mouth every 6 (six) hours if needed 0 03/30/2023 Active traZODone hydrochloride 100 mg oral tablet (2 sources) Serotonin Reuptake Inhibitor Start: 04-29-2023 take 1 tablet by mouth at bedtime traZODone (Desyrel) 100 MG tablet Indications: Primary insomnia TAKE 1 TABLET BY MOUTH AT BEDTIME 90 tablet 3 04/29/2023 Active zolpidem tartrate 10 mg oral tablet (3 sources) gamma-Aminobutyr ic Acid-ergic Agonist Start: 04-29-2023 End: 06-14-2023 take 1 tablet by mouth at bedtime zolpidem (Ambien) 10 MG tablet Indications: Primary insomnia Take 1 tablet (10 mg) by mouth at bedtime 90 tablet 1 06/14/2023 Active Problems Problem Classification Problem Date Documented Date Episodic/Chronic Anxiety disorders (2 sources) Generalized anxiety disorder; Translations: [Generalized anxiety disorder] Onset: 05-10-2023 05-10-2023 Chronic Conditions associated with dizziness or vertigo (2 sources) Vertigo; Translations: [Dizziness and giddiness] Onset: 05-10-2023 05-10-2023 Episodic Diabetes mellitus with complications (2 sources) Type 2 diabetes mellitus; Translations: [Type 2 diabetes mellitus with hyperglycemia] Onset: 05-10-2023 05-10-2023 Chronic Disorders of lipid metabolism (3 sources) Hyperlipidemia, unspecified; Translations: [Dyslipidemia] Onset: 09-19-2022 05-10-2023 Chronic Esophageal disorders (2 sources) Gastroesophageal reflux disease; Translations: [Gastro-esophageal reflux disease without esophagitis] Onset: 05-10-2023 05-10-2023 Chronic Essential hypertension (6 sources) Essential (primary) hypertension; Translations: [Benign hypertension] Onset: 09-17-2022 Chronic Fluid and electrolyte disorders (3 sources) Hypokalemia; Translations: [Hypokalemia] Onset: 05-10-2023 06-14-2023 Episodic Glaucoma (2 sources) Primary open angle glaucoma; Translations: [Primary open-angle glaucoma, unspecified eye, stage unspecified] Onset: 12-13-2013 05-10-2023 Chronic Miscellaneous mental health disorders (3 sources) Primary insomnia; Translations: [Primary insomnia] Onset: 05-10-2023 06-14-2023 Chronic Other aftercare (1 source) Other mcfp (current) drug therapy; Translations: [OTH CLOTH BOLT BANDER CURRENT DRUG THERAPY] Onset: 09-19-2022 Episodic Other non-traumatic joint disorders (1 source) Pain in right wrist; Translations: [PAIN IN RIGHT WRIST] Onset: 09-19-2022 Episodic Other non-traumatic joint disorders (2 sources) Pain in right knee; Translations: [Pain in joint, lower leg] Onset: 05-10-2023 05-10-2023 Episodic Spondylosis; intervertebral disc disorders; other back problems (8 sources) Other cervical disc degeneration, unspecified cervical region; Translations: [Other intervertebral disc degeneration, lumbar region] Onset: 09-19-2022 Chronic Spondylosis; intervertebral disc disorders; other back problems (2 sources) Degenerative cervical spinal stenosis; Translations: [Spinal stenosis, cervical region] Onset: 05-10-2023 05-10-2023 Episodic Thyroid disorders (3 sources) Hypothyroidism, unspecified; Translations: [Acquired hypothyroidism] Onset: 09-19-2022 05-10-2023 Chronic Results Test Name Value Interpretation Reference Range Facility ALL BASIC METABOLIC PANELon 06-15-2023 Anion gap [Moles/Vol] 11.2 mmol/L [facility] Calcium [Mass/Vol] 9.0 mg/dL 8.5 - 10. 1 mg/dL [facility] Chloride [Moles/Vol] 102 mmol/L 98 - 10 7 mmol/L [facility] CO2 [Moles/Vol] 28.3 mmol/L 21.0 - 32.0 mmol/L [facility] Creatinine [Mass/Vol] 0.85 mg/dL 0.55 - 1.02 mg/dL [facility] GFR/1.73 sq M.predicted CKD-EPI (S/P/Bld) [Vol rate/Area] >60 60 - PINF [facility] Glucose [Mass/Vol] 105 mg/dL 74 - 106 mg/dL [facility] Potassium [Moles/Vol] 4.5 mmol/L 3.5 - 5.1 mmol/L [facility] Sodium [Moles/Vol] 137 mmol/L 136 - 145 mmol/L [facility] TBH EGFR-NON AF NIUEAN >60 60 - PINF [facility] Urea nitrogen [Mass/Vol] 13.0 mg/dL 7.0 - 18.0 mg/dL [facility] Urea nitrogen/Creatinine [Mass ratio] 15.3 mg/mg [facility] MRI CSPINE WO CONon 09-26-19 23 MRI [...] by: SUNNY VIRAMONTES Date: 2022-09-25 12:52 Normal [facility] MRI LSPINE WO CONon 09-26-19 23 MRI [...] SUNNY VIRAMONTES Date: 2022-09-25 12:04 Normal [facility] CBC AUTO DIFFon 09-17-2022 BASO # 0.0 103/ul Normal 0.0-0.1 [facility] Comment on above: Performed By: #### C BC ####[facility] [address] [place], [place] [address]Dr. Paola Moreno Basophils/100 WBC (Bld) 0.4 % Normal 0.2-2.0 [facility] Comment on above: Performed By: #### C BC ####[facility] [address] [place] [address]Dr. Paola Moreno EO # 0.2 103/ul Normal 0.0-0.7 [facility] Comment on above: Performed By: #### C BC ####[facility] [address] [place], [place] [address]Dr. Paola Moreno Eosinophils/100 WBC (Bld) 2.9 % Normal 0.9-7.0 [facility] Comment on above: Performed By: #### C BC ####[facility] [address] [address]Dr. Paola Moreno Erythrocyte distribution width (RBC) [Ratio] 13.6 % Normal 11.0-15.0 [facility] Comment on above: Performed By: #### C BC ####[facility] [address] [place], [place] [address]Dr. Paola Moreno Hematocrit (Bld) [Volume fraction] 44.1 % Normal 36.0-48.0 [facility] Comment on above: Performed By: #### C BC ####[facility] [address] [id number]. Paola Moreno Hemoglobin (Bld) [Mass/Vol] 14.6 g/dL Normal 12.0-16.0 [facility] Comment on above: Performed By: #### C BC ####[facility] [address] [place] [id number]. Paola Moreno IG # 0.03 10e3/ul Normal 0.00-0.03 [facility] Comment on above: Performed By: #### C BC ####[facility] [address] [place], [place] [address]Dr. Paola Moreno IG % 0.4 % Normal 0.0-0.5 [facility] Comment on above: Performed By: #### C BC ####[facility] [address] [place], [place] [address]Dr. Paola Moreno LYMPH # 1.4 103/ul Normal 1.2-3.8 [facility] Comment on above: Performed By: #### C BC ####[facility] [address] [place], [place] [address]Dr. Paola Moreno Lymphocytes/100 WBC (Bld) 17.2 % Critically low 20.5-60.0 [facility] Comment on above: Performed By: #### C BC ####[facility] [address] [place], [place] [address]Dr. Paola Moreno MANUAL DIFF REQ NO Normal [facility] Comment on above: Performed By: #### C BC ####[facility] [address] [place], [place] [address]Dr. Paola Moreno MCH (RBC) [Entitic mass] 29.6 pg Normal 26.7-34.0 [facility] Comment on above: Performed By: #### C BC ####[facility] [address] [place], [place] [address]Dr. Paola Moreno MCHC (RBC) [Mass/Vol] 33.1 g/dL Normal 29.9-35.2 [facility] Comment on above: Performed By: #### C BC ####[facility] [address] [place] [id number]. Paola Moreno MCV (RBC) [Entitic vol] 89.3 fL Normal 81.0-99.0 [facility] Comment on above: Performed By: #### C BC ####[facility] [address] [place] [id number]. Paola Moreno MONO # 0.7 103/ul Normal 0.3-0.8 [facility] Comment on above: Performed By: #### C BC ####[facility] [address] [place], [place] [id number]. Paola Moreno Monocytes/100 WBC (Bld) 7.8 % Normal 1.7-12.0 [facility] Comment on above: Performed By: #### C BC ####[facility] [address] [place], [place] [address]Dr. Paola Moreno NEUT # 6.0 103/ul Normal 1.4-6.5 [facility] Comment on above: Performed By: #### C BC ####[facility] [address] [place], [place] [id number]. Paola Moreno Neutrophils/100 WBC (Bld) 71.3 % Normal 43.0-75.0 [facility] Comment on above: Performed By: #### C BC ####[facility] [address] [place], [place] [id number]. Paola Moreno Platelet mean volume (Bld) [Entitic vol] 10.6 fL Normal 9.5-13.5 [facility] Comment on above: Performed By: #### C BC ####[facility] [address] [place], [place] [id number]. Paola Moreno PLT 191 103/ul Normal 150-450 [facility] Comment on above: Performed By: #### C BC ####[facility] [address] [place], [place] [address]Dr. Paola Moreno RBC 4.94 106/ul Normal 4.20-5.40 [facility] Comment on above: Performed By: #### C BC ####[facility] [address] [place] [address]Dr. Paola Moreno WBC 8.4 103/ul Normal 4.0-11.0 [facility] Comment on above: Performed By: #### C BC ####[facility] [address] [place] [address]Dr. Paoal Moreno FREE T3on 09-17-2022 FREE T3 2.55 pg/mlL Normal 2.18-3.98 [facility] Comment on above: Performed By: #### T SH, LIPID, BMP, LIVER, FT3 #### [facility] [address] [address] [address] Paola Moreno FREE T4on 09-17-2022 Free T4 [Mass/Vol] 0.84 ng/dL Normal 0.76-1.46 [facility] Comment on above: Performed By: #### F T4 #### [facility] [address] [address] [address] Paola Moreno GLYCOHEMOGLOBIN A1Con 2022 ADA RECOMMENDATION SEE BELOW Normal [facility] Comment on above: Result Comment: ADA RECOMMENDED LIMIT 4.0 - 6.0 ADA THERAPEUTIC TARGET < 7.0 ACTION SUGGESTED > 7.0 Performed By: #### A 1C #### [facility] [address] [place] [address] Dr. Paola Moreno Glucose [Mass/Vol] 85 mg/dL Normal [facility] Comment on above: Performed By: #### A 1C #### [facility] [address] [address] [address] Paola Moreno HbA1c (Bld) [Mass fraction] 4.6 % Normal 4.5-6.2 [facility] Comment on above: Performed By: #### A 1C #### [facility] [address] [address] [address] Paola Moreno LIPID PROFILEon 09-17-2022 CHOL-HDL RATIO NORM SEE BELOW Normal [facility] Comment on above: Result Comment: 3.3 - 4.4 LOW RISK 4.4 - 7.1 AVERAGE RISK 7.1 - 11.0 MODERATE RISK >11.0 HIGH RISK Performed By: #### T SH, LIPID, BMP, LIVER, FT3 #### [facility] [address] [address] [address] Paola Moreno Cholesterol [Mass/Vol] 162 mg/dL Normal <=200 [facility] Comment on above: Performed By: #### T SH, LIPID, BMP, LIVER, FT3 #### [facility] [address] [address] [address] Paola Moreno Cholesterol in HDL [Mass/Vol] 88 mg/dL Critically high 40-60 [facility] Comment on above: Performed By: #### T SH, LIPID, BMP, LIVER, FT3 #### [facility] [address] [address] [address] Paola Moreno Cholesterol in LDL [Mass/Vol] 38.2 mg/dL Normal [facility] Comment on above: Performed By: #### T SH, LIPID, BMP, LIVER, FT3 #### [facility] [address] [address] [address] Paola Moreno Cholesterol.total/Ch olesterol in HDL [Mass ratio] 1.8 {ratio} Normal [facility] Comment on above: Performed By: #### T SH, LIPID, BMP, LIVER, FT3 #### [facility] [address] [address] [address] Paola Moreno HDL NORMAL > or = 60 mg/dl - LO W CARDIOVASCULAR RISK <40 mg/dl - HIGH CARDIOVASCULAR RISK Normal [facility] Comment on above: Performed By: #### T SH, LIPID, BMP, LIVER, FT3 #### [facility] [address] [address] [address] Paola Moreno LDL CALC NORMAL SEE BELOW Normal [facility] Comment on above: Result Comment: <100 mg/dl OPTIMAL 100 - 129 mg/dl NEAR OR ABOVE OPTIMAL 130 - 159 mg/dl BORDERLINE HIGH 160 - 189 mg/dl HIGH >190 mg/dl VERY HIGH Performed By: #### T SH, LIPID, BMP, LIVER, FT3 #### [facility] [address] [address] [address] Paola Moreno Triglyceride [Mass/Vol] 179 mg/dL Critically high <=150 [facility] Comment on above: Performed By: #### T SH, LIPID, BMP, LIVER, FT3 #### [facility] [address] [address] [address] Paola Moreno VLDL CALC 35.8 mg/dL Normal [facility] Comment on above: Performed By: #### T SH, LIPID, BMP, LIVER, FT3 #### [facility] [address] [place] [address] Dr. Paola Moreno LIVER PROFILEon 09-17-2022 Albumin [Mass/Vol] 3.3 g/dL Critically low 3.4-5.0 [facility] Comment on above: Performed By: #### T SH, LIPID, BMP, LIVER, FT3 #### [facility] [address] [place] [address] Dr. Paola Moreno Albumin/Globulin [Mass ratio] 0.8 {ratio} Normal [facility] Comment on above: Performed By: #### T SH, LIPID, BMP, LIVER, FT3 #### [facility] [address] [place] [address] Dr. Paola Moreno ALP [Catalytic activity/Vol] 69 U/L Normal 46-116 [facility] Comment on above: Performed By: #### T SH, LIPID, BMP, LIVER, FT3 #### [facility] [address] [place] [address] Dr. Paola Moreno ALT [Catalytic activity/Vol] 24 U/L Normal 14-59 [facility] Comment on above: Performed By: #### T SH, LIPID, BMP, LIVER, FT3 #### [facility] [address] [place] [address] Dr. Paola Moreno AST [Catalytic activity/Vol] 20 U/L Normal 15-37 [facility] Comment on above: Performed By: #### T SH, LIPID, BMP, LIVER, FT3 #### [facility] [address] [place] [address] Dr. Paola Moreno BILI, CONJUGATED 0.1 mg/dL Normal 0.0-0.2 [facility] Comment on above: Performed By: #### T SH, LIPID, BMP, LIVER, FT3 #### [facility] [address] [place] [address] Dr. Paola Moreno Bilirubin [Mass/Vol] 0.4 mg/dL Normal 0.2-1.0 [facility] Comment on above: Performed By: #### T SH, LIPID, BMP, LIVER, FT3 #### [facility] [address] [place] [address] Dr. Paola Moreno Globulin (S) [Mass/Vol] 4.0 g/dL Normal [facility] Comment on above: Performed By: #### T SH, LIPID, BMP, LIVER, FT3 #### [facility] [address] [place] [address] Dr. Paola Moreno Protein [Mass/Vol] 7.3 g/dL Normal 6.4-8.2 [facility] Comment on above: Performed By: #### T SH, LIPID, BMP, LIVER, FT3 #### [facility] [address] [place] [address] Dr. Paola Moreno PROF CHEM 8 (BAS METB)on Anion gap [Moles/Vol] 11.8 mmol/L Normal [facility] Comment on above: Performed By: #### T SH, LIPID, BMP, LIVER, FT3 #### [facility] [address] [place] [address] Dr. Paola Moreno Calcium [Mass/Vol] 9.0 mg/dL Normal 8.5-10.1 [facility] Comment on above: Performed By: #### T SH, LIPID, BMP, LIVER, FT3 #### [facility] [address] [place] [address] Dr. Paola Moreno Chloride [Moles/Vol] 103 mmol/L Normal 98-107 [facility] Comment on above: Performed By: #### T SH, LIPID, BMP, LIVER, FT3 #### [facility] [address] [place] [address] Dr. Paola Moreno CO2 [Moles/Vol] 30.5 mmol/L Normal 21.0-32.0 [facility] Comment on above: Performed By: #### T SH, LIPID, BMP, LIVER, FT3 #### [facility] [address] [address] [address] Paola Moreno Creatinine [Mass/Vol] 0.83 mg/dL Normal 0.55-1.02 [facility] Comment on above: Performed By: #### T SH, LIPID, BMP, LIVER, FT3 #### [facility] [address] [address] [address] Paola Moreno EGFR-AF NIUEAN >60 Normal >=60 [facility] Comment on above: Performed By: #### T SH, LIPID, BMP, LIVER, FT3 #### [facility] [address] [place] [address] Dr. Paola Moreno EGFR-NON AF NIUEAN >60 Normal >=60 [facility] Comment on above: Performed By: #### T SH, LIPID, BMP, LIVER, FT3 #### [facility] [address] [place] [address] Dr. Paola Moreno Glucose [Mass/Vol] 122 mg/dL Critically high 74-106 [facility] Comment on above: Performed By: #### T SH, LIPID, BMP, LIVER, FT3 #### [facility] [address] [place] [address] Dr. Paola Moreno Potassium [Moles/Vol] 4.3 mmol/L Normal 3.5-5.1 [facility] Comment on above: Performed By: #### T SH, LIPID, BMP, LIVER, FT3 #### [facility] [address] [place] [address] Dr. Paola Moreno Sodium [Moles/Vol] 141 mmol/L Normal 136-145 [facility] Comment on above: Performed By: #### T SH, LIPID, BMP, LIVER, FT3 #### [facility] [address] [place] [address] Dr. Paola Moreno Urea nitrogen [Mass/Vol] 12.0 mg/dL Normal 7.0-18.0 [facility] Comment on above: Performed By: #### T SH, LIPID, BMP, LIVER, FT3 #### [facility] [address] [place], [place] [address] Dr. Paola Moreno Urea nitrogen/Creatinine [Mass ratio] 14.5 mg/mg Normal [facility] Comment on above: Performed By: #### T SH, LIPID, BMP, LIVER, FT3 #### [facility] [address] [place], [place] [address] Dr. Paola Moreno TSHon 09-17-2022 TSH 3.671 uIU/mL Normal 0.358-3.740 [facility] [place] [facility] Comment on above: Performed By: #### T SH, LIPID, BMP, LIVER, FT3 #### [facility] [id number] Paola Moreno XR WRIST RT MIN 3 Von 2022 XR WRIST RT MIN 3 V EXAM: XR WRIST RT WI N 3 V HISTORY: Pain of right [...] by: GUMARO GUEVARA Date: 2022-09-17 12:41 Normal [facility] Encounters Encounter Date Encounter Type Care Provider Facility Start: 12-01-2023 End: 12-01-2023 ambulatory CLARA CAMACHO Not Available Start: 11-25-2023 End: 11-25-2023 ambulatory ALDO SINGH Not Available Start: 06-15-2023 [facility] Result Encounter Aldo Singh MD Work Phone: [facility] External Department Unsolicited Start: 06-15-2023 [facility] Result Encounter Aldo Singh MD Work Phone: [facility] External Department Unsolicited Start: 06-14-2023 Refill Aldo Jaramillo Work Phone: [facility] Comment on above: Hypokalemia (Primary Dx); Primary insomnia Start: 05-10-2023 End: 05-10-2023 ambulatory ALDO SINGH Not Available Start: 10-01-[address] ALDO SINGH Facil ity:[facility] Start: 09-25-2022 End: 09-26-[address] ALDO SINGH Facility:[facility] Start: 09-17-2022 End: 09-18-[address] ALDO SINGH Facility:[facility] Procedures Date Procedure Procedure Detail Performing Clinician Start: 06-15-2023 ALL BASIC METABOLIC PANEL Aldo Singh MD Work Phone: Start: 05-12-2023 Mammography Aldo mcguire MD Work Phone: Plan of Treatment Date Care Activity Detail Author Start: 05-12-2024 Screening for malign ant neoplasm of breast Mammogram [facility] [facility] Start: 11-25-2023 End: 11-25-2023 Patient encounter procedure 11/25/2023 11:15 AM EDT [facility] [address] [place] [id number] Aldo Snigh MD [address] [place] [phone] [facility] Start: 01-01-2023 Influenza vaccination Influenza Vacc ine (#1) [facility] Start: 12-04-1974 Urine screening for protein Diabetes: Urine Protein Screening [facility] Start: 12-04-1965 Glaucoma screening Diabetes: R etinopathy Screening [facility] Start: 12-04-1961 Pneumococcal Vaccine : 65+ [...] Payer Medicare MEDICARE MEDICAR E PART B [id number] 2020-Present [address] [address] [place] [address] Medicare [id number] 2020 Unknown BCBS BCBS xxxxxx [id number] 2020-Present [phone] [address] [place] [address] [id number] 1959 Medicare [id number] 1959 Medicare [id number] 1955 Unknown [id number] 1955 Unknown [id number] 1955 Unknown [id number] 1955 Unknown [id number] 9 1955 Unknown [id number] 9 1955 Unknown [id number] 9 Social History Date Type Detail Facility Start: 05-10-2023 Tobacco smoking stat [facility] Ex-smoker [facility] End: 05-03-2013 History [...] and content) DATE CREATED AUTHOR 10/09/2022 [facility] DATE CREATED AUTHOR AUTHOR'S ORGANIZ ATION 12/03/2023 [facility] EPIC Reason for Visit (unrecogniz ed section and content) Reason Onset Date Comments Med Refill 06/14/2023 Care Teams (unrecognized sec tion and content) [employer] Relationship Specialty Start Date End Date Aldo Singh MD PCP - General Family Medicine 11/13/22 [employer] Relationship Specialty Start Date End Date Aldo [...] BE BASED ON THE PRIMARY CLINICAL RECORDS. [employer] provides no warranty or guarantee of the accuracy or completeness of information in this document.
[2024-01-27 12:50] LABS: Bilirubin Urine NEGATIVE (NEGATIVE); Blood Urine NEGATIVE (NEGATIVE); Clarity Urine CLEAR (CLEAR); Color Urine YELLOW (YELLOW); Glucose Urine UA NEGATIVE (NEGATIVE); Ketones Urine NEGATIVE (NEGATIVE); Leukocyte Esterase Urine NEGATIVE (NEGATIVE); Nitrite Urine NEGATIVE (NEGATIVE); Protein Urine TRACE mg/dL (NEG/TRACE); Urobilinogen Urine 0.2 EU/dL (0.2-1.0); pH Urine 8.5 (5.0-9.0)
[2024-01-27] MEDS: 0.9 % SODIUM CHLORIDE 1,000 ML 200 ML IV (12:52)
[2024-01-27 12:56] LABS: Bacteria Urine SMALL #/HPF (NONE SEEN); Cast Seen? NONE SEEN #/LPF (NONE SEEN); Crystals Seen? None Seen #/HPF (None Seen); Mucus Urine TRACE (NONE SEEN); RBC Urine 0-2 #/HPF (0-2); Squamous Epithelial Cell Urine MANY #/LPF (NONE/RARE); Urine Culture Indicated YES; WBC Urine NONE SEEN #/HPF (NONE SEEN)
[2024-01-27 13:02] LABS: Basophils Percent Auto 0.3 % (0.2-2.0); Eosinophils Absolute Auto 0.1 10^3/uL (0.0-0.7); Eosinophils Percent Auto 0.6 % (0.9-7.0); Hematocrit 42.2 % (36.0-48.0); Hemoglobin 14.3 g/dL (12.0-16.0); Immature Granulocytes Abs Auto 0.03 10^3/uL (0.00-0.03); Immature Granulocytes Pct Auto 0.3 % (0.0-0.5); Mean Corpuscular HGB Conc 33.9 g/dL (29.9-35.2); Mean Corpuscular Hemoglobin 29.1 pg (26.7-34.0); Mean Corpuscular Volume 85.9 fL (81.0-99.0); Mean Platelet Volume 10.6 fL (9.5-13.5); Monocytes Absolute Auto 0.3 10^3/uL (0.3-0.8); Monocytes Percent Auto 3.1 % (1.7-12.0); Neutrophils Absolute Auto 7.7 10^3/uL (1.4-6.5); Neutrophils Percent Auto 84.7 % (43.0-75.0); Platelet Count 178 10^3/uL (150-450); Red Blood Count 4.91 10^6/uL (4.20-5.40); Red Cell Distribution Width 13.2 % (11.0-15.0); White Blood Count 9.1 10^3/uL (4.0-11.0)
[2024-01-27 13:05] LABS: Anion Gap 10.3; BUN Creatinine Ratio 14.3; Calcium 9.8 mg/dL (8.5-10.1); Carbon Dioxide 29.1 mmol/L (21.0-32.0); Chloride 99 mmol/L (98-107); Estimated GFR (African America >60 (>=60); Estimated GFR (Non-African Ame >60 (>=60); Glucose 120 mg/dL (74-106); Potassium 4.4 mmol/L (3.5-5.1); Sodium 134 mmol/L (136-145)
--- NOTE | 2024-01-27 13:40 | CT_ITS ---
The [address] [address] Patient Name: FATUMA OLIVAS MRN: [id number] date: 1955 Sex: F Assigned Patient Location: ER Current Patient Location: ER Accession/Order Number: [id number] Exam Date: 01/27/2024 14:08 Report Date: 01/27/2024 14:40 At the request of: GWEN WILLIS Procedure: CT abdomen pelvis w con EXAM: CT abdomen pelvis w con HISTORY: Right lower quadrant abdominal pain COMPARISON: None. TECHNIQUE: Following intravenous administration of 100 mL of Omnipaque 350, axial soft tissue windows of the abdomen and pelvis performed with coronal and sagittal reformats. CT dose reduction technique was used including Automated Exposure Control. Findings: ABDOMEN: There is fatty infiltration of the liver. In addition, within segment 5 there is a low-attenuation lesion measuring approximately 2.9 cm. There are regions of peripheral enhancement. Findings likely relate to a hemangioma. The gallbladder, spleen, pancreas, and adrenal glands. No renal stones or collecting system dilatation. Left renal peripelvic cyst measuring approximately 2.1 cm. No renal stones or collecting system dilatation. The bilateral ureters are nondilated. Evaluation of the bowel is limited given the absence of oral contrast. There is a small to moderate-sized right-sided the spigelian hernia containing a loop of small bowel. There is a transition point both upstream and downstream.. The appendix is nondilated. The aorta is normal caliber. Mild atherosclerotic disease. No enlarged abdominal lymph nodes or free abdominal fluid. Pelvis: Unremarkable bladder. The uterus is surgically absent. No enlarged pelvic lymph nodes or free pelvic fluid. No aggressive sclerotic or lytic osseous lesions. Multilevel degenerative spondylosis. Impression 1. Small amount right-sided spigelian hernia. This contains a loop of small bowel. There is transition point bowel entering and exiting the hernia. This may relate to incarceration and possible developing closed loop obstruction 2. Other nonemergent findings, as described above.. Electronically authenticated by: MY CORONEL Date: 01/27/2024 14:40
--- NOTE | 2024-01-27 16:05 | PC.NURSE ---
16 FR NG TUBE PLACED IN R NARE AT 53CM. PLACED ON LOW INTERMITTENT SUCTION. PT TOLERATED EXTREMELY WELL. GASTRIC CONTENTS PULLED BACK TO CONFIRM PLACEMENT AND AIR BUBBLES HEARD IN STOMACH. INQUIRED WITH DR WILLIS ABOUT A CXR BUT DID NOT WANT ONE AT THIS TIME. PT VS WNL -- DENIES ANY SOB OR RESP DISTRESS.
[2024-01-27] MEDS: HYDRALAZINE HCL 20 MG/ML VIAL 10 MG IVP (17:14)
[2024-01-27] MEDS: MORPHINE SULFATE 4 MG/ML VIAL IV (17:54)
--- NOTE | 2024-01-27 18:00 | ECG_ITS ---
The 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
[2024-01-27] MEDS: HYDROMORPHONE HCL 1 MG/ML CARTRIDGE IV (18:20)
== END 2024-01-27 18:26 | disposition short-term general hospital (02) ==
PROVIDERS: Emergency Provider Emergency Medicine; PCP Family Medicine
DX: K43.6 Other and unspecified ventral hernia with obstruction, without gangrene (principal)
CPT/HCPCS: 36415; 74177; 80048; 81001; 83605; 85025; 87086; 93005; 96374; 96375; 99285; J0360; J1170; J2270; Q9967

== ENCOUNTER 2024-06-05 09:08 | Outpatient (OUT) | payer MEDICARE, SELFPAY ==
--- OUTSIDE RECORDS SUMMARY | 2024-06-05 09:13 | XMS_ITS | CCD ---
Author Organization [facility] Informat ion Partnership [facility] Care Team Providers Care Operations Accountant Name Role Phone SAMANTHA, DR MIKEY Keith Attending Unavailable NADERER, DR MIKEY Keith Admitting Unavailable NADERER, DR MIKEY Keith Primary Care Unavailable NADERER, DR MIKEY Keith Attending Unavailable NADERER, DR MIKEY Keith Admitting Unavailable WEST, DR SUNNY Belle Consulting Unavailable NADERER, DR MIKEY Keith Primary Care Unavailable NADERER, DR MIKEY Keith Consulting Unavailable NADERER, DR MIKEY Keith Consulting Unavailable NADERER, DR MIKEY Keith Attending Unavailable NADERER, DR MIKEY Keith Admitting Unavailable NADERER, DR MIKEY Keith Primary Care Unavailable NEFCY, GUMARO Consulting Unavailable Mikey Singh MD Primary Care Provider [phone] Samantha MORRISON, Mikey Primary Care Provider MIKEY SINGH Attending Unavailable NADERER, MIKEY Attending Unavailable DOUGCLARA Attending Unavailable NADERER, MIKEY Attending Unavailable NADERER, MIKEY Attending Unavailable GWEN WILLIS Referring Unavailable MALAGON-BUKOWIEC, SHELLEY Admitting Unavailabl e MALAGON-BUKOWIEC, SHELLEY Attending Unavailabl e GAIL, DAVE Referring Unavailable GAIL, DAVE Referring Unavailable VELY, ISABEL Attending Unavailable NILDouglas Chong Attending Unavailable NADERER, MIKEY Referring Unavailable Allergies Allergy Classification Reported Allergen(s) Allergy Type Date of Onset Reaction(s) Facility (4 sources) Amino Acids; Translations: [LISINOPRIL] Drug Allergy 5 [facility] Repository (2 sources) Penicillins; Translations: [PENICILLINS] Drug allergy (disorder) 5 [facility] Repository (3 sources) Verapamil; Translations: [VERAPAMIL] Drug Allergy 5 [facility] Repository (19 sources) Angiotensin-conve rting enzyme inhibitor agent; Translations: [GURINDER INHIBITORS] Drug Allergy 4 Unknown [facility] Healthcare (18 sources) Influenza Vaccines Drug Allergy 4 Unknown [facility] (18 sources) Lisinopril Propensity to adverse reactions 4 Cough [facility] Healthcare (18 sources) Nortriptyline Drug Allergy 4 Unknown [facility] Healthcare (18 sources) Penicillins Drug Allergy 4 Unknown [facility] (18 sources) Verapamil Drug Allergy 4 Other [facility] Healthcare (13 sources) Wound Dressing Adhesive Propensity to adverse reactions 4 [facility] (1 source) nickel; Translations: [NICKEL] Drug Allergy 4 [facility] Repository (1 source) ADHESIVE TAPE-SILICONES; Translations: [ADHESIVE TAPE-SILICONES] Propensity to adverse reactions to drug (disorder) 4 [facility] Repository (1 source) INFLUENZA A (H5N1) VIRUS VACCINE MONOVAL (18 YR +); Translations: [INFLUENZA A (H5N1) VIRUS VACCINE MONOVAL (18 YR +)] Propensity to adverse reactions to drug (disorder) 4 [facility] Repository (1 source) Nortriptyline; Translations: [Pamelor] Drug Allergy [facility] Repository (1 source) Penicillin; Translations: [penicillin] Drug Allergy [facility] Repository (1 source) flu vaccines; Translations: [flu vaccines] Propensity to adverse reactions (disorder) [facility] Repository Medications Current Medications Medication Drug Class(es) Dates Sig (Normalized) Sig (Original) [id number] 200 actuat albuterol 0.09 mg/actuat metered dose inhaler (19 sources) beta2-Adrenergic Agonist Start: 05-01-2024 End: 05-01-2024 take 2 puff(s) by inhalation every four hours for wheezing albuterol HFA 90 mcg/act inhaler Indications: SOB (shortness of breath) Inhale 2 puffs every 4 (four) hours if needed for wheezing 18 g 3 05/01/2024 Active busPIRone hydrochloride 30 mg oral tablet (19 sources) Start: 04-29-2023 End: 05-01-2024 take 1 tablet by mouth in the morning busPIRone (Buspar) 30 MG tablet Indications: Anxiety Take 1 tablet (30 mg) by mouth in the morning and 1 tablet (30 mg) before bedtime. 180 tablet 3 05/01/2024 Active carvedilol 25 mg oral tablet (20 sources) alpha-Adrenergic Dang, beta-Adrenergic Dang Start: 04-24-2024 End: 05-29-2024 take 1 tablet by mouth in the morning carvedilol (Coreg) 25 MG tablet Indications: Primary hypertension (CMS/HCC) Take 1 tablet (25 mg) by mouth in the morning and 1 tablet (25 mg) in the evening. Take with meals. 180 tablet 3 05/29/2024 Active Start: 04-29-2023 take 1 tablet by ashley th twice daily carvedilol (Coreg) 25 MG tablet Indications: Primary hypertension (CMS/HCC) Take 1 tablet by mouth twice daily 180 tablet 3 04/29/2023 Active celecoxib 200 mg oral capsule (20 sources) Nonsteroidal Anti-inflammatory Drug Start: 04-18-2024 End: 05-29-2024 take 1 capsule by mouth in the morning celecoxib (CeleBREX) 200 MG capsule Indications: DDD (degenerative disc disease), lumbar Take 1 capsule (200 mg) by mouth in the morning and 1 capsule (200 mg) before bedtime. 180 capsule 3 05/29/2024 Active Start: 04-29-2023 take 1 capsule by mo uth twice daily celecoxib (CeleBREX) 200 MG capsule Indications: DDD (degenerative disc disease), lumbar Take 1 capsule by mouth twice daily 180 capsule 3 04/29/2023 Active estradiol 2 mg oral tablet (20 sources) Estrogen Start: 04-18-2024 End: 05-29-2024 take 1 tablet by mouth once daily estradiol (Estrace) 2 MG tablet Indications: Gastroesophageal reflux disease without esophagitis Take 1 tablet (2 mg) by mouth Daily 90 tablet 3 05/29/2024 Active Start: 01-26-2024 take 1 tablet by ashley th once daily estradiol (Estrace) 2 MG tablet Indications: Gastroesophageal reflux disease without esophagitis Take 1 tablet by mouth once daily 90 tablet 01/26/2024 Active Start: 02-03-2023 take 1 tablet by ashley th in the morning estradiol (Estrace) 2 MG tablet Take 1 tablet by mouth in the morning. 02/03/2023 Active FLUoxetine 20 mg oral capsule (19 sources) Serotonin Reuptake Inhibitor Start: 04-18-2024 End: 05-29-2024 take 1 capsule by mouth once daily FLUoxetine (PROzac) 20 MG capsule Indications: Depression, unspecified depression type (CMS/HCC) Take 1 capsule (20 mg) by mouth Daily 90 capsule 3 05/29/2024 Active Start: 04-29-2023 take 1 capsule by mo uth once daily FLUoxetine (PROzac) 20 MG capsule Indications: Depression, unspecified depression type (CMS/HCC) Take 1 capsule by mouth once daily 90 capsule 3 04/29/2023 Active ketorolac tromethamine 5 mg/ml ophthalmic solution (4 sources) Nonsteroidal Anti-inflammatory Drug, Cyclooxygenase Inhibitor Start: 03-29-2023 ketorolac (Acular) 0.5 % ophthalmic solution Administer 1 drop into both eyes in the morning and 1 drop at noon and 1 drop in the evening and 1 drop before bedtime. 03/29/2023 Active losartan potassium 50 mg oral tablet (20 sources) Angiotensin 2 Receptor Dang Start: 05-26-2024 take 1 tablet by mouth in the morning losartan (Cozaar) 50 MG tablet Indications: Benign hypertension (CMS/HCC) Take 1 tablet (50 mg) by mouth in the morning and 1 tablet (50 mg) before bedtime. 180 tablet 3 05/26/2024 Active Start: 05-22-2024 End: 05-26-2024 take 1 tablet by mouth in the morning losartan (Cozaar) 50 MG tablet Indications: Benign hypertension (CMS/HCC) Take 1 tablet (50 mg) by mouth in the morning and 1 tablet (50 mg) before bedtime. 180 tablet 3 05/22/2024 05/26/2024 Discontinued (Reorder) Start: 05-01-2024 take 1 tablet by ashley th once daily losartan (Cozaar) 50 MG tablet Indications: Benign hypertension (CMS/HCC) Take 1 tablet by mouth once daily 90 tablet 05/01/2024 Active Start: 01-26-2024 take 1 tablet by ashley th once daily losartan (Cozaar) 50 MG tablet Indications: Benign hypertension (CMS/HCC) Take 1 tablet by mouth once daily 90 tablet 01/26/2024 Active Start: 10-27-2023 take 1 tablet by ashley th once daily losartan (Cozaar) 50 MG tablet Indications: Benign hypertension (CMS/HCC) Take 1 tablet by mouth once daily 90 tablet 10/27/2023 Active Start: 02-03-2023 take 1 tablet by ashley th in the morning losartan (Cozaar) 50 MG tablet Take 1 tablet by mouth in the morning. 0 02/03/2023 Active meclizine hydrochloride 25 mg oral tablet (16 sources) Antiemetic Start: 12-15-2023 take 1 tablet by mouth four times daily as needed for dizziness meclizine (Antivert) 25 MG tablet Indications: Vertigo Take 1 tablet (25 mg) by mouth 4 (four) times a day as needed for dizziness 30 tablet 2 12/15/2023 Active pantoprazole 40 mg delayed release oral tablet (19 sources) Proton Pump Inhibitor Start: 04-18-2024 End: 05-01-2024 take 1 tablet by mouth once daily pantoprazole (ProtoNix) 40 MG EC tablet Indications: Gastroesophageal reflux disease without esophagitis Take 1 tablet (40 mg) by mouth Daily 90 tablet 3 05/01/2024 Active Start: 01-26-2024 take 1 tablet by ashley th once daily pantoprazole (ProtoNix) 40 MG EC tablet Indications: Gastroesophageal reflux disease without esophagitis Take 1 tablet by mouth once daily 90 tablet 01/26/2024 Active Start: 02-03-2023 take 1 tablet by ashley th in the morning pantoprazole (ProtoNix) 40 MG EC tablet Take 1 tablet by mouth in the morning. 02/03/2023 Active microencapsulated potassium chloride 20 meq extended release oral tablet (20 sources) Start: 06-14-2023 End: 05-29-2024 take 1 tablet by mouth in the morning potassium chloride CR (Klor-Con M20) 20 MEQ ER tablet Indications: Hypokalemia Take 1 tablet (20 mEq) by mouth in the morning and 1 tablet (20 mEq) before bedtime. 180 tablet 3 05/29/2024 Active Start: 11-02-2022 End: 06-14-2023 take 1 tablet by mouth in the morning potassium chloride CR (Klor-Con M20) 20 MEQ ER tablet Take 1 tablet by mouth in the morning and 1 tablet before bedtime. 0 11/02/2022 06/14/2023 Discontinued (Reorder) rosuvastatin calcium 20 mg oral tablet (19 sources) HMG-CoA Reductase Inhibitor Start: 04-18-2024 End: 05-29-2024 take 1 tablet by mouth once daily rosuvastatin (Crestor) 20 MG tablet Indications: Dyslipidemia (CMS/HCC) Take 1 tablet (20 mg) by mouth Daily 90 tablet 3 05/29/2024 Active Start: 01-26-2024 take 1 tablet by ashley th at bedtime rosuvastatin (Crestor) 20 MG tablet Indications: Dyslipidemia (CMS/HCC) TAKE 1 TABLET BY MOUTH AT BEDTIME 90 tablet 01/26/2024 Active Start: 02-03-2023 take 1 tablet by ashley th at bedtime rosuvastatin (Crestor) 20 MG tablet Take 1 tablet by mouth at bedtime 02/03/2023 Active traMADol hydrochloride 50 mg oral tablet (19 sources) Opioid Agonist Start: 12-28-2023 End: 08-27-2024 take 1 tablet by mouth four times daily as needed for pain traMADol (Ultram) 50 MG tablet Indications: DDD (degenerative disc disease), lumbar Take 1 tablet (50 mg) by mouth 4 (four) times a day as needed for severe pain 360 tablet 05/29/2024 08/27/2024 Active Start: 11-22-2023 End: 12-28-2023 take 1 tablet by mouth every six hours as needed traMADol (Ultram) 50 MG tablet Take 50 mg by mouth every 6 (six) hours if needed 11/22/2023 12/28/2023 Discontinued Start: 03-30-2023 take 1 tablet by ashley th every six hours as needed traMADol (Ultram) 50 MG tablet Take 1 tablet by mouth every 6 (six) hours if needed 0 03/30/2023 Active traZODone hydrochloride 100 mg oral tablet (20 sources) Serotonin Reuptake Inhibitor Start: 04-24-2024 End: 05-29-2024 take 1 tablet by mouth at bedtime traZODone (Desyrel) 100 MG tablet Indications: Primary insomnia Take 1 tablet (100 mg) by mouth at bedtime 90 tablet 3 05/29/2024 Active Start: 04-29-2023 take 1 tablet by ashley th at bedtime traZODone (Desyrel) 100 MG tablet Indications: Primary insomnia TAKE 1 TABLET BY MOUTH AT BEDTIME 90 tablet 3 04/29/2023 Active triamcinolone acetonide 5 mg/ml topical cream (14 sources) Corticosteroid Start: 02-01-2024 End: 05-01-2024 triamcinolone (Kenalog) 0.5 % cream Indications: Allergic contact dermatitis due to adhesives Apply topically 3 (three) times a day 60 g 1 05/01/2024 Active Completed/Discontinued Medications Medication Drug Class(es) Dates Sig (Normalized) Sig (Original) zolpidem tartrate 10 mg oral tablet (20 sources) gamma-Aminobutyri c Acid-ergic Agonist Start: 04-29-2023 End: 08-28-2024 zolpidem (Ambien) 10 MG tablet Indications: Primary insomnia Take 1 tablet (10 mg) by mouth as needed at bedtime for sleep 90 tablet 05/29/2024 05/30/2024 Discontinued (Reorder) Problems Active Problems Problem Classification Problem Date Documented Date Episodic/Chronic Anxiety disorders (20 sources) Generalized anxiety disorder; Translations: [Generalized anxiety disorder] Onset: 05-10-2023 05-10-2023 Chronic Diabetes mellitus with complications (20 sources) Type 2 diabetes mellitus; Translations: [Type 2 diabetes mellitus with hyperglycemia] Onset: 05-10-2023 05-10-2023 Chronic Disorders of lipid metabolism (20 sources) Hyperlipidemia, unspecified; Translations: [Dyslipidemia] Onset: 09-19-2022 05-10-2023 Chronic Esophageal disorders (20 sources) Gastroesophageal reflux disease; Translations: [Gastro-esophageal reflux disease without esophagitis] Onset: 05-10-2023 05-10-2023 Chronic Essential hypertension (20 sources) Essential (primary) hypertension; Translations: [Benign hypertension] Onset: 09-17-2022 Chronic Glaucoma (18 sources) Primary open angle glaucoma; Translations: [Primary open-angle glaucoma, unspecified eye, stage unspecified] Onset: 12-13-2013 05-10-2023 Chronic Miscellaneous mental health disorders (20 sources) Primary insomnia; Translations: [Primary insomnia] Onset: 05-10-2023 06-14-2023 Chronic Mood disorders (1 source) Depressive disorder; Translations: [Depression, unspecified depression type (CMS/HCC)] 05-29-2024 Chronic Other aftercare (1 source) 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; Translations: [OTH UNIVERSITY INTERN CURRENT DRUG THERAPY] Onset: 09-19-2022 Episodic Other aftercare (5 sources) Patient encounter status; Translations: [Other care home (current) drug therapy] Onset: 11-25-2023 11-25-2023 Episodic Other lower respiratory disease (1 source) Dyspnea; Translations: [Shortness of breath] 05-01-2024 Episodic Other non-traumatic joint disorders (1 source) Pain in right wrist; Translations: [PAIN IN RIGHT WRIST] Onset: 09-19-2022 Episodic Spondylosis; intervertebral disc disorders; other back problems (20 sources) Other cervical disc degeneration, unspecified cervical region; Translations: [Other intervertebral disc degeneration, lumbar region] Onset: 09-19-2022 Chronic Thyroid disorders (19 sources) Hypothyroidism, unspecified; Translations: [Acquired hypothyroidism] Onset: 09-19-2022 05-10-2023 Chronic Unclassified (2 sources) Post-op; Translations: [Post-op] Onset: 02-07-2024 Past or Other Problems Problem Classification Problem Date Documented Da te Episodic/Chronic Abdominal hernia (17 sources) Obstructed Spigelian hernia; Translations: [Other and unspecified ventral hernia with obstruction, without gangrene] Onset: 01-27-2024 Resolved: 05-26-2024 02-01-2024 Episodic Allergic reactions (16 sources) Allergic contact dermatitis due to adhesive; Translations: [Allergic contact dermatitis due to adhesives] Onset: 02-01-2024 Resolved: 05-26-2024 02-01-2024 Episodic Conditions associated with dizziness or vertigo (18 sources) Vertigo; Translations: [Dizziness and giddiness] Onset: 05-10-2023 05-10-2023 Episodic Fluid and electrolyte disorders (20 sources) Hypokalemia; Translations: [Hypokalemia] Onset: 05-10-2023 06-14-2023 Episodic Other aftercare (15 sources) Long-term current use of drug therapy; Translations: [Other care home (current) drug therapy] Onset: 11-25-2023 11-25-2023 Episodic Other non-traumatic joint disorders (19 sources) Pain in right knee; Translations: [Pain in joint, lower leg] Onset: 05-10-2023 05-10-2023 Episodic Spondylosis; intervertebral disc disorders; other back problems (20 sources) Degenerative cervical spinal stenosis; Translations: [Spinal stenosis, cervical region] Onset: 05-10-2023 05-10-2023 Episodic Unclassified (2 sources) Patient encounter status 05-26-2024 Results Test Name Value Interpretation Reference Range Facility 29on 02-07-2024 29 Addended by: ISABEL CARRILLO on: 03/01/2024 09:53 AM Modules accepted: Level of Service Normal [facility] Office Visiton 02-07-2024 Follow-up visit [id number] Tereso Nanceel 1955 F Date Provider Department Center 02/07/2024 768-ISABEL CARRILLO [facility] SURG Second Fl No family history on file Level of Service:[address] [place] OFFICE/OUTPATIENT ESTABLISHED SF MDM 10 MIN Reason for Visit and Comments: Post-op [483] - s/p lap repair of Spegelian hernia 01/26 Normal [facility] URINE CULTURE, ROUTINEon Bacteria identified Cx Nom (U) Urine Culture, Routine [facility] Bacteria identified Cx Nom (U) Mixed urogenital chastity [facility] Bacteria identified Cx Nom (U) 10,000-25,000 colony forming units per mL [facility] Bacteria identified Cx Nom (U) Performed at: - [facility] Bacteria identified Cx Nom (U) [address], [place] [id number] [facility] Bacteria identified Cx Nom (U) 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 Barriers to Discharge: Patient is medically ready for discharge at this time. AVS has been completed. Daughter to provider transportation to home. Message sent for follow up appointment. No further OTM needs at this time. [facility] will continue to follow patient and assist with any further discharge related needs. Diet: Dietary Orders (From admission, onward) Start Ordered 01/28/241438 Regular Diet Diet effective now Question: Room Service? Answer: Yes 01/28/24 1439 Physician Expected Discharge Date: 01/28/2024 Discharge Delays: PT Six Click Score: 22 OT Six Click Score: PT Recommendations: OT Recommendations: Does patient understand post acute plan of care? Yes Is expected discharge disposition appropriate for patient?: Yes New Consults: Normal [facility] 30 The patient is Moderately Stable - Low risk of patient condition declining or worsening The patient's goals for the shift include rest, recover The clinical goals for the shift include comfort, rest Problem: Pain - Adult Goal: Verbalizes/displays adequate comfort level or baseline comfort level Outcome: Progressing Problem: Safety - Adult Goal: Free from fall injury Outcome: Progressing Problem: Discharge Planning Goal: Discharge to home or other facility with appropriate resources Outcome: Progressing Problem: Chronic Conditions and Co-morbidities Goal: Patient's chronic conditions and co-morbidity symptoms are monitored and maintained or improved Outcome: Progressing Normal [facility] DSon 01-28-2024 DS Admission Admitted 01/27/2024 for Incarcerated hernia Discharge Diagnosis Incarcerated hernia Discharge Disposition Home or Self Care () Discharge Medications Your medication list START taking these medications Instructions Last Dose Given Next Dose Due ondansetron ODT 4 mg disintegrating tablet Commonly known as: Zofran-ODT Take 1 tablet (4 mg) by mouth every 8 (eight) hours if needed for nausea or vomiting for up to 3 days. CONTINUE taking these medications Instructions Last Dose Given Next Dose Due albuterol 90 mcg/actuation inhaler busPIRone 30 mg tablet Commonly known as: Buspar carvedilol 25 mg tablet Commonly known as: Coreg celecoxib 200 mg capsule Commonly known as: CeleBREX estradiol 2 mg tablet Commonly known as: Estrace FLUoxetine 20 mg capsule Commonly known as: PROzac losartan 50 mg tablet Commonly known as: Cozaar meclizine 25 mg tablet Commonly known as: Antivert pantoprazole 40 mg EC tablet Commonly known as: ProtoNix potassium chloride CR 10 mEq ER tablet Commonly known as: Klor-Con M10 rosuvastatin 20 mg tablet Commonly known as: Crestor traMADol 50 mg tablet Commonly known as: Ultram traZODone 100 mg tablet Commonly known as: Desyrel zolpidem CR 6.25 mg ER tablet Commonly known as: Ambien CR Where to Get Your Medications These medications were sent to [facility] - [place], [place] - [address] [place] [address] [place] [address], [place] [address] ondansetron ODT 4 mg disintegrating tablet Activity No strenuous activity Diet Continue on the same type of diet and foods as you were eating before your admission. Drink plenty of water. 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 Patient underwent laparoscopy assisted open hernia repair. Intraoperative findings showed that Bowel was viable when reduced. postoperative course was uneventful. She tolerated her diet and was 23 without nausea, vomiting. Patient was discharged home with instructions to follow-up with Dr. Malagon outpatient within 1 to 2 weeks. Pertinent Physical Exam At Time of Discharge Physical Exam Constitutional: General: She is not in acute distress. Appearance: Normal appearance. She is obese. She is not ill-appearing, toxic-appearing or diaphoretic. HENT: Head: Normocephalic and atraumatic. Eyes: General: No scleral icterus. Cardiovascular: Rate and Rhythm: Normal rate and regular rhythm. Pulses: Normal pulses. Pulmonary: Effort: Pulmonary effort is normal. No respiratory distress. Breath sounds: Normal breath sounds. Abdominal: General: Abdomen is flat. There is no distension. Palpations: Abdomen is soft. There is no mass. Tenderness: There is no abdominal tenderness. There is no guarding or rebound. Musculoskeletal: General: Normal range of motion. Skin: General: Skin is warm and dry. Neurological: Mental Status: She is alert and oriented to person, place, and time. Mental status is at baseline. Surgical incisions in good condition Lab Results Labs Reviewed APTT - Abnormal Result Value aPTT 24.9 (*) MAGNESIUM - Abnormal Magnesium 1.3 (*) URINALYSIS - Abnormal Color, Urine Straw (*) Clarity, Urine Clear pH, Urine 7.0 Leukocytes, Urine Negative Nitrite, Urine Negative Protein, Urine Negative Glucose, Urine Negative Bilirubin, Urine Negative Specific [place], Urine 1.024 (*) Ketones, Urine 20 (*) Blood, Urine Negative Narrative: Microscopics not performed on urines with negative chemical reactions unless requested on original order. CBC WITH AUTO DIFFERENTIAL - Abnormal Auto WBC 11.59 (*) RBC 5.05 (*) Hemoglobin 14.6 Hematocrit 42.8 MCV 84.8 MCH 28.9 MCHC 34.1 RDW 13.6 Neutrophils Relative 82.6 (*) Lymphocytes Relative 11.2 (*) Monocytes Relative 5.3 Eosinophils Relative 0.3 Basophils Relative 0.3 Neutrophils Absolute 9.57 (*) Lymphocytes Absolute 1.30 Monocytes Absolute 0.61 Eosinophils Absolute 0.04 Basophils Absolute 0.03 Platelets 213 nRBC % 0.0 Immature Granulocytes Relative 0.3 Immature Granulocytes Absolute 0.04 HEPATIC FUNCTION PANEL - Normal Total Bilirubin 0.5 Bilirubin, Direct 0.1 Alkaline Phosphatase 48 AST 16 ALT (SGPT) 11 Total Protein 6.3 Albumin 3.7 LACTIC ACID WITH 4 HOUR REFLEX - Normal Lactate 1.3 PROTIME-INR - Normal Protime 14.2 INR 1.10 BASIC METABOLIC PANEL Sodium 138 Potassium 3.6 Chloride 104 CO2 23 BUN 8 Creatinine 0.61 Glucose 95 Calcium 8.6 Anion Gap 15 eGFR 97.3 BUN/Creatinine Ratio 13.1 CBC AND DIFFERENTIAL Narrative: The following orders were created for panel (more content not included)... Normal [facility] NURSNOTEon 01-28-2024 NURSNOTE Patient report given via phone to SABINE PIERCE [facility] APTTon 01-27-2024 ACTIVATED PARTIAL THROMBOPLASTIN TIME IN PPP BY COAGULATION ASSAY 24.9 Seconds Low 25.0-35.0 [facility] Comment on above: Result Comment: Clin ical significance of the APTT is questionable in the presence of heparin. Performed By: #### L [id number] #### REHABILITATION [facility] ([facility]) [address] [place] [address] Anesthesiaon 01-27-2024 Anesthesia [id number] Fatuma Nance 1955 F Date Provider Department Center 01/27/2024 Manny-RAUL ARIAS [facility] Medical C No family history on file Normal [facility] BASIC METABOLIC PANELon 01-02 Anion gap [Moles/Vol] 15 mmol/L Normal 7-20 [facility] Comment on above: Performed By: #### L [id number] ####[facility] ([facility])[address] [place] [address] Calcium [Mass/Vol] 8.6 mg/dL Normal 8.6-10.3 [facility] Comment on above: Performed By: #### L [id number] ####[facility] ([facility])[address] [place] [address] Chloride [Moles/Vol] 104 mmol/L Normal 98-107 [facility] Comment on above: Performed By: #### L [id number] ####[facility] ([facility] [place] [address] CO2 [Moles/Vol] 23 mmol/L Normal 21-31 [facility] Comment on above: Performed By: #### L [id number] ####[facility] ([facility] [place] [address] Creatinine [Mass/Vol] 0.61 mg/dL Normal 0.60-1.20 [facility] Comment on above: Performed By: #### L [id number] ####[facility] ([facility] [place] [address] GLOMERULAR FILTRATION RATE ML/MIN/1.73 SQ M.PREDICTED 97.3 mL/min/1.73m*2 Normal >60.0 [facility] Comment on above: Result Comment: The [facility]???s estimated glomerular filtration rate (eGFR) will no longer include consideration of race in its calculation. The National Kidney Foundation???s eGFR Task Force developed new recommendations for the estimation of the glomerular filtration rate in the [place] They recommend immediate implementation of the new equation refit without the race variable in all laboratories because the calculation does not include race. In addition to not including race in the calculation and reporting, it included diversity in its development, and has acceptable performance characteristics and potential consequences that do not disproportionately affect any one group of individuals. Performed By: #### L [id number] ####[facility] ([facility] [place] [address] Glucose [Mass/Vol] 95 mg/dL Normal 70-100 [facility] Comment on above: Performed By: #### L [id number] ####[facility] ([facility])[address] [place] [address] Potassium [Moles/Vol] 3.6 mmol/L Normal 3.5-5.1 [facility] Comment on above: Performed By: #### L [id number] ####[facility] ([facility] [place] [address] Sodium [Moles/Vol] 138 mmol/L Normal 136-145 [facility] Comment on above: Performed By: #### L [id number] ####[facility] ([facility] [place] [address] Urea nitrogen [Mass/Vol] 8 mg/dL Normal 7-25 [facility] Comment on above: Performed By: #### L [id number] ####[facility] ([facility] [place] [address] UREA NITROGEN/CREATININE (MASS RATIO) IN SER/PLAS 13.1 Normal [facility] Comment on above: Performed By: #### L [id number] ####[facility] ([facility] [place] [address] CBC WITH AUTO DIFFERENTIALon 01-27-2024 Basophils (Bld) [#/Vol] 0.03 10*3/uL Normal 0.00-0.20 [facility] Comment on above: Performed By: #### L [id number] #### [facility] ([facility]) [address] [place] [address] Basophils/100 WBC (Bld) 0.3 % Normal 0.0-1.0 [facility] Comment on above: Performed By: #### L [id number] #### [facility] ([facility]) [address] [place] [address] Eosinophils (Bld) [#/Vol] 0.04 10*3/uL Normal 0.00-0.50 [facility] Comment on above: Performed By: #### L [id number] #### [facility] ([facility]) [address] [facility] [place] [address] Eosinophils/100 WBC (Bld) 0.3 % Normal 0.0-6.0 [facility] Comment on above: Performed By: #### L [id number] #### [facility] ([facility]) [address] [place] [address] Erythrocyte distribution width (RBC) [Ratio] 13.6 % Normal 11.5-15.0 [facility] Comment on above: Performed By: #### L [id number] #### [facility] ([facility]) [address] [place] [address] ERYTHROCYTE MEAN CORPUSCULAR HEMOGLOBIN CONCENTRATION (G/DL) BY AUTOMATED 34.1 g/dL Normal 32.0-35.0 [facility] Comment on above: Performed By: #### L [id number] #### [facility] ([facility]) [address] [place] [address] Hematocrit (Bld) [Volume fraction] 42.8 % Normal 36.0-48.0 [facility] Comment on above: Performed By: #### L [id number] #### [facility] ([facility]) [address] [place] [address] Hemoglobin (Bld) [Mass/Vol] 14.6 g/dL Normal 12.0-15.0 [facility] Comment on above: Performed By: #### L [id number] #### [facility] ([facility]) [address] [place] [address] Immature granulocytes (Bld) [#/Vol] 0.04 10*3/uL Normal 0.00-0.20 [facility] Comment on above: Performed By: #### L [id number] #### [facility] ([facility]) [address] [place] [address] Immature granulocytes/100 WBC (Bld) 0.3 % Normal 0.0-1.0 [facility] Comment on above: Performed By: #### L [id number] #### [facility] ([facility]) [address] [place] [address] Lymphocytes (Bld) [#/Vol] 1.30 10*3/uL Normal 1.20-4.00 [facility] Comment on above: Performed By: #### L [id number] #### [facility] [address] [place] [address] Lymphocytes/100 WBC (Bld) 11.2 % Low 20.0-45.0 [facility] Comment on above: Performed By: #### L [id number] #### [facility] ([facility]) [address] [place] [address] MCH (RBC) [Entitic mass] 28.9 pg Normal 27.0-33.0 [facility] Comment on above: Performed By: #### L [id number] #### [facility] ([facility]) [address] [place] [address] MCV (RBC) [Entitic vol] 84.8 fL Normal 82.0-98.0 [facility] Comment on above: Performed By: #### L [id number] #### [facility] ([facility]) [address] [place] [address] Monocytes (Bld) [#/Vol] 0.61 10*3/uL Normal 0.10-1.00 [facility] Comment on above: Performed By: #### L [id number] #### [facility] ([facility]) [address] [place] [address] Monocytes/100 WBC (Bld) 5.3 % Normal 5.0-12.0 [facility] Comment on above: Performed By: #### L [id number] #### [facility] ([facility]) [address] [place] [address] Neutrophils (Bld) [#/Vol] 9.57 10*3/uL High 1.60-7.60 [facility] Comment on above: Performed By: #### L [id number] #### [facility] ([facility]) [address] [place] [address] Neutrophils/100 WBC (Bld) 82.6 % High 40.0-72.0 [facility] Comment on above: Performed By: #### L [id number] #### [facility] ([facility] [address] [place] [address] NRBC (PER 100 WBCS) BY AUTOMATED COUNT 0.0 % Normal 0 [facility] Comment on above: Performed By: #### L [id number] #### [facility] ([facility] [address] [place] [address] PLATELETS (10*3/UL) IN BLOOD AUTOMATED COUNT 213 10*3/uL Normal 150-400 [facility] Comment on above: Performed By: #### L [id number] #### [facility] ([facility] [address] [place] [address] RBC (Bld) [#/Vol] 5.05 10*6/uL High 3.80-5.00 [facility] Comment on above: Performed By: #### L [id number] #### [facility] ([facility] [address] [place] [address] WBC (Bld) [#/Vol] 11.59 10*3/uL High 4.00-10.60 [facility] Comment on above: Performed By: #### L [id number] #### [facility] ([facility] [address] [place] [address] CT ABDOMEN PELVIS W IV CONTR John 01-27-2024 CT ABDOMEN PELVIS W IV CONTRAST CT of the abdomen and pelvis with contrast dated 01/27/2024 at 8:57 PM INDICATION: Abdominal hernia, abdominal pain. PROCEDURE: Automatic radiation exposure lowering techniques were utilized. All CT scans in this facility use dose modulation, iterative reconstruction, and/or weight based dosing when appropriate to reduce radiation dose to as low as reasonably achievable. Following the intravenous injection of 100 mL of Omnipaque 350, a CT of the abdomen and pelvis and sagittal and coronal reformats obtained. FINDINGS: No comparisons available. NG tube tip in the stomach. Well-circumscribed low-attenuation lesion in the right lobe of the liver measures 3 cm, not fully evaluated but possibly a hemangioma, compared to prior imaging, if these are not available, a follow-up MRI could be obtained. High attenuation in the gallbladder. No suspicious lesion seen in the spleen, adrenal glands, pancreas, or kidneys. Multiple dilated small bowel loops measuring up to 3.2 cm suspicious for obstruction. There is an incarcerated hernia and the right lower quadrant. Diverticulosis of the sigmoid. No free fluid. IMPRESSION: 1. Incarcerated hernia and the right lower quadrant causing small bowel obstruction. 2. Diverticulosis of the sigmoid. 3. Indeterminant low-attenuation lesion in the right lobe of the liver, the appearance suggests a benign etiology; recommend comparison to old films from outside institution. If these are not available, a follow-up nonemergent MRI could be obtained. Electronically signed: FITO MCDERMOTT MD. 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 Pt arrives with 20g IV and NG in R nostril at 55cm. Pt alert and oriented on arrival. [facility] EDPROVon 01-27-2024 EDPROV HPI Chief Complaint Patient presents with Abdominal Pain Initial evaluation completed by Dr. Gordon at 20:52. Fatuma Nance is a 68 y.o. female presenting to the ED with c/o abd pain. Pt reports her abd pain to the right lower quadrant. Pt reports nausea and vomiting earlier in the day. Pt reports never having a hernia in the past. Pt was transferred from [facility] due to finding of incarcerated abd hernia. History provided by: Patient Abdominal Pain Pain location: RLQ Associated symptoms: nausea (earlier in the day) and vomiting (earlier in the day) Arun Coma Scale Score: 15 Patient History Past Medical History: Diagnosis Date Hypertension History reviewed. No pertinent surgical history. No family history on file. Social History Tobacco Use Smoking status: Former Types: Cigarettes Quit date: 2013 Years since quittin.7 Smokeless tobacco: Never Vaping Use Vaping Use: Never used Substance Use Topics Alcohol use: Never Drug use: Yes Types: Other Comment: THC topical cream Review of Systems Review of Systems Gastrointestinal: Positive for abdominal pain (right lower quadrant), nausea (earlier in the day) and vomiting (earlier in the day). Physical Exam ED Triage Vitals [01/27/242002] Temp Heart Rate Resp BP 37.1 ???C (98.8 ???F) 69 19 171/76 SpO2 Temp Source Heart Rate Source Patient Position 98 % Oral Monitor Lying BP Location FiO2 (%) Left arm -- Physical Exam Vitals and nursing note reviewed. Constitutional: General: She is not in acute distress. Appearance: She is well-developed. HENT: Head: Normocephalic and atraumatic. Eyes: Extraocular Movements: Extraocular movements intact. Conjunctiva/sclera: Conjunctivae normal. Pupils: Pupils are equal, round, and reactive to light. Cardiovascular: Rate and Rhythm: Normal rate and regular rhythm. Pulses: Normal pulses. Heart sounds: Normal heart sounds. No murmur heard. Pulmonary: Effort: Pulmonary effort is normal. No respiratory distress. Breath sounds: Normal breath sounds. Abdominal: Palpations: Abdomen is soft. Tenderness: There is abdominal tenderness. Musculoskeletal: General: No swelling. Normal range of motion. Cervical back: Normal range of motion and neck supple. Skin: General: Skin is warm and dry. Capillary Refill: Capillary refill takes less than 2 seconds. Neurological: General: No focal deficit present. Mental Status: She is alert and oriented to person, place, and time. Psychiatric: Mood and Affect: Mood normal. Procedures ED Course & MDM Diagnoses as of 01/27/240 Incarcerated hernia Medical Decision Making I, Delvin snow, documented on behalf of Dr. Gordon. Chief complaint abd pain Plan of Care: Urinalysis, CBC and differential, Hepatic function panel, BMP, Magnesium, Protime-INR, APTT, Lactic acid with 4 hour reflex, CT abdomen pelvis w IV contrast, CT transfer of outside films, morphine injection 4 mg, OMNIPaque ----- RESULTS ----- Labs: Labs Reviewed APTT - Abnormal Result Value aPTT 24.9 (*) MAGNESIUM - Abnormal Magnesium 1.3 (*) URINALYSIS - Abnormal Color, Urine Straw (*) Clarity, Urine Clear pH, Urine 7.0 Leukocytes, Urine Negative Nitrite, Urine Negative Protein, Urine Negative Glucose, Urine Negative Bilirubin, Urine Negative Specific [place], Urine 1.024 (*) Ketones, Urine 20 (*) Blood, Urine Negative Narrative: Microscopics not performed on urines with negative chemical reactions unless requested on original order. CBC WITH AUTO DIFFERENTIAL - Abnormal Auto WBC 11.59 (*) RBC 5.05 (*) Hemoglobin 14.6 Hematocrit 42.8 MCV 84.8 MCH 28.9 MCHC 34.1 RDW 13.6 Neutrophils Relative 82.6 (*) Lymphocytes Relative 11.2 (*) Monocytes Relative 5.3 Eosinophils Relative 0.3 Basophils Relative 0.3 Neutrophils Absolute 9.57 (*) Lymphocytes Absolute 1.30 Monocytes Absolute 0.61 Eosinophils Absolute 0.04 Basophils Absolute 0.03 Platelets 213 nRBC % 0.0 Immature Granulocytes Relative 0.3 Immature Granulocytes Absolute 0.04 HEPATIC FUNCTION PANEL - Normal Total Bilirubin 0.5 Bilirubin, Direct 0.1 Alkaline Phosphatase 48 AST 16 ALT (SGPT) 11 Total Protein 6.3 Albumin 3.7 LACTIC ACID WITH 4 HOUR REFLEX - Normal Lactate 1.3 PROTIME-INR - Normal Protime 14.2 INR 1.10 BASIC METABOLIC PANEL Sodium 138 Potassium 3.6 Chloride 104 CO2 23 BUN 8 Creatinine 0.61 Glucose 95 Calcium 8.6 Anion Gap 15 eGFR 97.3 BUN/Creatinine Ratio 13.1 CBC AND DIFFERENTIAL Narrative: The following orders were created for panel order CBC and differential. Procedure Abnormality Status --------- ------ CBC auto differential[[id number]] Abnormal Final result Please view results for these tests on the individual orders. Radiology: CT abdom (more content not included)... Normal [facility] HEPATIC FUNCTION PANELon Albumin [Mass/Vol] 3.7 g/dL Normal 3.5-5.7 [facility] Comment on above: Performed By: #### L [id number] #### [facility] ([facility]) [address] [place] [address] ALP [Catalytic activity/Vol] 48 U/L Normal 34-104 [facility] Comment on above: Performed By: #### L [id number] #### [facility] ([facility]) [address] [place] [address] ALT [Catalytic activity/Vol] 11 U/L Normal 7-52 [facility] Comment on above: Performed By: #### L [id number] #### [facility] ([facility] [address] [place] [address] AST [Catalytic activity/Vol] 16 U/L Normal 13-39 [facility] Comment on above: Performed By: #### L [id number] #### [facility] ([facility] [address] [place] [address] Bilirubin [Mass/Vol] 0.5 mg/dL Normal 0.3-1.0 [facility] Comment on above: Performed By: #### L [id number] #### [facility] ([facility] [address] [place] [address] Magnesium [Mass/Vol] 0.1 mg/dL Normal 0-0.2 [facility] Comment on above: Performed By: #### L [id number] #### [facility] ([facility] [address] [place] [address] Protein [Mass/Vol] 6.3 g/dL Normal 6.0-8.3 [facility] Comment on above: Performed By: #### L [id number] #### [facility] ([facility] [address] [place] [address] HPon 01-27-2024 HP History Of Present Illness Fatuma Nance is a 68 y.o. 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 Patient reports she started having RLQ abdominal pain around 12 hours ago and that it has been worsening throughout the day. She reports associated nausea and vomiting. She reports bowel movement early today but has not passed gas since. She took gas x without relief. Patient's surgical history includes laparoscopic tubal ligation and oophorectomy and a vaginal hysterectomy. Past Medical History She has a past medical history of Hypertension. Surgical History She has no past surgical history on file. Has received a hysterectomy from other facility. Social History She reports that she quit smoking about 10 years ago. Her smoking use included cigarettes. She has never used smokeless tobacco. She reports current drug use. Drug: Other. She reports that she does not drink alcohol. Family History No family history on file. Allergies Gurinder inhibitors, Influenza a (h5n1) virus vaccine monoval (18 yr +), Lisinopril, Nickel, Penicillins, and Verapamil Medications (Not in a hospital admission) Review of Systems Constitutional: Negative for chills and fever. HENT: Negative for trouble swallowing. Respiratory: Negative for shortness of breath. Cardiovascular: Negative for chest pain. Gastrointestinal: Positive for abdominal distention, abdominal pain, nausea and vomiting. Negative for blood in stool and diarrhea. Genitourinary: Negative for dysuria and hematuria. Skin: Negative for wound. Last Recorded Vitals Visit Vitals BP 151/78 Pulse 78 Temp 37.1 ???C (98.8 ???F) (Oral) Resp 14 Ht 1.6 m (5' 3 ) Wt 81.6 kg (180 lb) SpO2 98% BMI 31.89 kg/m??? OB Status Postmenopausal Smoking Status Former BSA 1.9 m??? Physical Exam Constitutional: General: She is in acute distress (Moderate distress due to pain). HENT: Head: Normocephalic. Mouth/Throat: Mouth: Mucous membranes are dry. Eyes: Extraocular Movements: Extraocular movements intact. Cardiovascular: Rate and Rhythm: Normal rate. Pulses: Normal pulses. Pulmonary: Effort: Pulmonary effort is normal. No respiratory distress. Abdominal: General: There is distension. Tenderness: There is abdominal tenderness. Comments: RLQ tenderness Musculoskeletal: Cervical back: Normal range of motion. Right lower leg: No edema. Left lower leg: No edema. Skin: General: Skin is warm and dry. Capillary Refill: Capillary refill takes less than 2 seconds. Neurological: General: No focal deficit present. Mental Status: She is alert. Psychiatric: Mood and Affect: Mood normal. Behavior: Behavior normal. Relevant Lab Results Lab Results Component Value Date WBC 11.59 (H) 01/27/2024 HGB 14.6 01/27/2024 HCT 42.8 01/27/2024 PLT 213 01/27/2024 NA 138 01/27/2024 K 3.6 01/27/2024 CL 104 01/27/2024 CO2 23 01/27/2024 BUN 8 01/27/2024 GLUCOSE 95 01/27/2024 CALCIUM 8.6 01/27/2024 MG 1.3 (L) 01/27/2024 LACTATE 1.3 01/27/2024 BILITOT 0.5 01/27/2024 AST 16 01/27/2024 ALT 11 01/27/[address] abdomen pelvis w IV contrast Narrative: CT of the abdomen and pelvis with contrast dated 01/27/2024 at 8:57 PM INDICATION: Abdominal hernia, abdominal pain. PROCEDURE: Automatic radiation exposure lowering techniques were utilized. All CT scans in this facility use dose modulation, iterative reconstruction, and/or weight based dosing when appropriate to reduce radiation dose to as low as reasonably achievable. Following the intravenous injection of 100 mL of Omnipaque 350, a CT of the abdomen and pelvis and sagittal and coronal reformats obtained. FINDINGS: No comparisons available. NG tube tip in the stomach. Well-circumscribed low-attenuation lesion in the right lobe of the liver measures 3 cm, not fully evaluated but possibly a hemangioma, compared to prior imaging, if these are not available, a follow-up MRI could be obtained. High attenuation in the gallbladder. No suspicious lesion seen in the spleen, adrenal glands, pancreas, or kidneys. Multiple dilated small bowel loops measuring up to 3.2 cm suspicious for obstruction. There is an incarcerated hernia and the right lower quadrant. Diverticulosis of the sigmoid. No free fluid. Impression: 1. Incarcerated hernia and the right lower quadrant causing small bowel obstruction. 2. Diverticulosis of the sigmoid. 3. Indeterminant low-attenuation lesion in the right lobe of the liver, the appearance suggests a benign etiology; recommend comparison to old films from outside institution. If these are not available, a follow-up nonemergent MRI could be obtained. Electronically signed: FITO MCDERMOTT MD. CT transfer of outside films This order has been auto-finalized and does not contain a result. Assessment/Plan Assessment 68 y.o. female pat (more content not included)... Normal [facility] LACTIC ACID WITH 4 HOUR REFL EXon 01-27-2024 LACTATE (MMOL/L) IN SER/PLAS 1.3 mmol/L Normal 0.5-2.2 [facility] Comment on above: Performed By: #### L [id number] #### [facility] ([facility]) [address] [place] [address] MAGNESIUMon 01-27-2024 Magnesium [Mass/Vol] 1.3 mg/dL Low 1.9-2.7 [facility] Comment on above: Performed By: #### L [id number] ####[facility] ([facility])[address] [place] [address] OPNOTEon 01-27-2024 OPNOTE REPAIR, HERNIA, LAPAROSCOPIC (R) Operative Note Date: 01/27/2024 - 01/28/2024 Location: [facility] OR Name: Fatuma Nance, : 1955, Diagnosis * No Diagnosis Codes entered * * No Diagnosis Codes entered * Procedures * REPAIR, HERNIA, LAPAROSCOPIC Assisted open hernia Spegelian type hernia repair. Primary repair 0-PDS sutures Right Lower Quadrant Surgeons Primary: Shelley Munoz MD Procedure Summary Anesthesia: General ASA: II Estimated Blood Loss: 10 mL Drains: none NG/OG Tube Nasogastric 16 Fr Right nostril (Active) Placement Verification Other (Comment) 01/27/242134 Secured at 57 cm 01/27/242134 Measured from nare 01/27/242134 Tube Feeding Securement Tape 01/27/242134 Site Assessment Clean;Dry;Intact 01/27/242134 Nasogastric/Orogastric Status Low intermittent suction 01/27/242134 Drainage Appearance Cloudy;Thick;Clear;Gre en 01/27/242233 Output (mL) 100 mL 01/27/242233 Urethral Catheter Non-latex 16 Fr. (Active) Staff: Homicide Squad Captain: Shi Wolf RN Relief Homicide Squad Captain: Asha Mohr RN Scrub Person: Sofia Lawrence CST Visual Merchandising Assistant: Raphael Blackman CSA Indications: Fatuma Nance is an 68 y.o. female who is having surgery for HERNIA. Procedure Details: The patient was seen in the preoperative area. The risks, benefits, complications, treatment options, non-operative alternatives, expected recovery and outcomes were discussed with the patient. The possibilities of reaction to medication, pulmonary aspiration, injury to surrounding structures, bleeding, recurrent infection, the need for additional procedures, failure to diagnose a condition, and creating a complication requiring transfusion or operation were discussed with the patient. The patient concurred with the proposed plan, giving informed consent. The site of surgery was properly noted/marked if necessary per policy. The patient has been actively warmed in preoperative area. Preoperative antibiotics have been ordered and given within 1 hours of incision. Venous thrombosis prophylaxis have been ordered including bilateral sequential compression devices The Patient was brought back to the Operating room and Placed on the Operating Room table. SCDs were placed. Once adequate IV anesthesia was provided the patient was intubated. Note the patient already had an NGT in place. A Mendoza catheter was placed and the patient was secured to the table and foot boards were placed. The patient was prepped with Cholraprep and draped in the standard surgical fashion. After a time out was performed, Local was injected into the infraumbilical tissues and the Godwin technique was sued to access the abdomen and it was insufflated. Upon entry the bowel was visible in the hernia. Two additional 5mm ports were placed under direct visualization, one in the LUQ an done in LLQ. The bowel was gently removed from hernia. The hernia sac was large and the hypogastric vessel were directly adjacent to the opening. To assure adequate closure of the hernia without injury to the vessels it was decided to do an open repair. An incision was made over the hernia and taken don through naye's and the external oblique fascia. The muscle was spread and a small amount was opened using bovie cautery. The hernia sac was large and redundant. The hernia opening in the fascia was bout 1.5 cm in diameter. The edges of the hernia fascia were cleared and the hernia was closed with a running 0 PDS suture taking care not to injure the hypogastric vessels and assuring the hernia sac was reduced back into the abdomen and not opened. The anterior external oblique fascia was closed with a running 0 PDS suture and naye's fascia was closed with a running vicryl suture. The incision was irrigated and skin closed with a subcuticular vicryl suture. Attention was turned to insufflation the abdomen. The camera was placed and the bowel that was incarcerated was inspected and found to be viable. The hernia sac was redundant an now in the abdomen and was intact. The 5 mm ports were removed under direct visualization. The umbilical port was closed with 0 Vicryl suture. The skin was closed with vicryl suture and skin glue. 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 Bowel was viable when reduced. Photos were placed in the Chart. Complications: None; patient tolerated the procedure well. Disposition: PACU - hemodynamically stable. Condition: stable Shelley Munoz Normal [facility] PROTIME-INRon 01-27-2024 INR IN PPP BY COAGULATION ASSAY 1.10 Normal 0.90-1.10 [facility] Comment on above: Result Comment: ACCC P RECOMMENDED INR FOR WARFARIN THERAPY CONDITION INR PROPHYLAXIS OF VENOUS THROMBOSIS 2-3 (HIGH-RISK SURGERY) TREATMENT OF VENOUS THROMBOSIS 2-3 TREATMENT OF PULMONARY EMBOLISM 2-3 PREVENTION OF SYSTEMIC EMBOLISM: 2-3 ACUTE MYOCARDIAL INFARCTION TISSUE HEART VALVES VALVULAR HEART DISEASE ATRIAL FIBRILLATION RECURRENT SYSTEMIC EMBOLISM MECHANICAL HEART VALVE 2.5-3.5 FROM: ORAL ANTICOAGULANTS. MECHANISM OF ACTION, CLINICAL EFFECTIVENESS, AND OPTIMAL THERAPEUTIC RANGE. CHEST 1995;108:231S-246S. Performed By: #### L [id number] #### [facility] ([facility]) [address] [place] [address] PROTHROMBIN TIME (PT) IN PPP BY COAGULATION ASSAY 14.2 Seconds Normal 12.3-14.8 [facility] Comment on above: Performed By: #### L [id number] #### [facility] ([facility]) [address] [place] [address] TYPE AND SCREENon 01-27-2024 AB SCREEN Negative Normal [facility] Comment on above: Performed By: #### L [id number] #### [facility] , ABO group Nom (Bld) A Normal [facility] Comment on above: Performed By: #### L [id number] #### [facility] , RH TYPE IN BLOOD Positive Normal [facility] Comment on above: Performed By: #### L [id number] #### [facility] , URINALYSISon 01-27-2024 BILIRUBIN, TOTAL PRESENCE IN URINE Negative Normal Negative [facility] Comment on above: Order Comment: Micro scopics not performed on urines with negative chemical reactions unless requested on original order. Performed By: #### L [id number] #### [facility] ([facility]) [address] [place] [address] Clarity (U) Clear Normal Clear [facility] Comment on above: Order Comment: Micro scopics not performed on urines with negative chemical reactions unless requested on original order. Performed By: #### L [id number] #### [facility] ([facility]) [address] [place] [address] Color (U) Straw Abnormal Yellow [facility] Comment on above: Order Comment: Micro scopics not performed on urines with negative chemical reactions unless requested on original order. Performed By: #### L [id number] #### [facility] ([facility]) [address] [place] [address] Glucose (U) [Mass/Vol] Negative Normal Negative [facility] Comment on above: Order Comment: Micro scopics not performed on urines with negative chemical reactions unless requested on original order. Performed By: #### L [id number] #### [facility] ([facility]) [address] [place] [address] HEMOGLOBIN PRESENCE IN URINE Negative Normal Negative [facility] Comment on above: Order Comment: Micro scopics not performed on urines with negative chemical reactions unless requested on original order. Performed By: #### L [id number] #### [facility] ([facility] [address] [facility] [place] [address] Ketones Ql (U) 20 mg/dL Abnormal Negative [facility] Comment on above: Order Comment: Micro scopics not performed on urines with negative chemical reactions unless requested on original order. Performed By: #### L [id number] #### [facility] ([facility] [address] [place] [address] LEUKOCYTE ESTERASE PRESENCE IN URINE BY TEST STRIP Negative Normal Negative [facility] Comment on above: Order Comment: Micro scopics not performed on urines with negative chemical reactions unless requested on original order. Performed By: #### L [id number] #### [facility] ([facility] [address] [facility] [place] [address] NITRITE PRESENCE IN URINE Negative Normal Negative [facility] Comment on above: Order Comment: Micro scopics not performed on urines with negative chemical reactions unless requested on original order. Performed By: #### L [id number] #### [facility] ([facility] [address] [facility] [place] [address] pH (U) 7.0 [pH] Normal 5.0-8.0 [facility] Comment on above: Order Comment: Micro scopics not performed on urines with negative chemical reactions unless requested on original order. Performed By: #### L [id number] #### [facility] ([facility] [address] [facility] [place] [address] Protein (U) [Mass/Vol] Negative Normal Negative [facility] Comment on above: Order Comment: Micro scopics not performed on urines with negative chemical reactions unless requested on original order. Performed By: #### L [id number] #### [facility] ([facility] [address] [facility] [place] [address] Specific gravity (U) [Rel density] 1.024 High 1.015-1.020 [facility] Comment on above: Order Comment: Micro scopics not performed on urines with negative chemical reactions unless requested on original order. Performed By: #### L [id number] #### [facility] (PARKER) [address] [place] [address] ALL BASIC METABOLIC PANELon 06-15-2023 Anion gap [Moles/Vol] 11.2 [facility] Calcium [Mass/Vol] 9.0 mg/dL 8.5 - 10. 1 mg/dL [facility] Chloride [Moles/Vol] 102 mmol/L 98 - 10 7 mmol/L [facility] CO2 [Moles/Vol] 28.3 mmol/L 21.0 - 32.0 mmol/L [facility] Creatinine [Mass/Vol] 0.85 mg/dL 0.55 - 1.02 mg/dL [facility] GFR/1.73 sq M.predicted CKD-EPI (S/P/Bld) [Vol rate/Area] >60 60 - PINF [facility] Glucose [Mass/Vol] 105 mg/dL 74 - 106 mg/dL [facility] Potassium [Moles/Vol] 4.5 mmol/L 3.5 - 5.1 mmol/L [facility] Sodium [Moles/Vol] 137 mmol/L 136 - 145 mmol/L [facility] TBH EGFR-NON AF MALIAN >60 60 - PINF [facility] Urea nitrogen [Mass/Vol] 13.0 mg/dL 7.0 - 18.0 mg/dL [facility] Urea nitrogen/Creatinine [Mass ratio] 15.3 mg/mg [facility] CON[facility] 09-26-19 MRI [facility] CON EXAMINATION: MRI [facility] CON HISTORY: Degeneration of cervical intervertebral disc [...] by: SUNNY VIRAMONTES Date: 2022-09-25 12:52 Normal [facility] MRI LSPINE WO CONon 09-26-19 23 MRI [facility] WO CON EXAMINATION: MRI LSPINE WO CON [...] SUNNY VIRAMONTES Date: 2022-09-25 12:04 Normal [facility] CBC AUTO DIFFon 09-17-2022 BASO # 0.0 103/ul Normal 0.0-0.1 [facility] Comment on above: Performed By: #### C BC ####[facility] [address] [address]Dr. Paola Moreno Basophils/100 WBC (Bld) 0.4 % Normal 0.2-2.0 [facility] Comment on above: Performed By: #### C BC ####[facility] [address] [place], [place] [address]Dr. Paola Moreno EO # 0.2 103/ul Normal 0.0-0.7 [facility] Comment on above: Performed By: #### C BC ####[facility] [address] [place], [place] [address]Dr. Paola Moreno Eosinophils/100 WBC (Bld) 2.9 % Normal 0.9-7.0 [facility] Comment on above: Performed By: #### C BC ####[facility] [address] [place], [place] [address]Dr. Paola Moreno Erythrocyte distribution width (RBC) [Ratio] 13.6 % Normal 11.0-15.0 [facility] Comment on above: Performed By: #### C BC ####[facility] [address] [place], [place] [address]Dr. Paola Moreno Hematocrit (Bld) [Volume fraction] 44.1 % Normal 36.0-48.0 [facility] Comment on above: Performed By: #### C BC ####[facility] [address] [place], [place] [address]Dr. Paola Moreno Hemoglobin (Bld) [Mass/Vol] 14.6 g/dL Normal 12.0-16.0 [facility] Comment on above: Performed By: #### C BC ####[facility] [address] [place] [id number]. Paola Moreno IG # 0.03 10e3/ul Normal 0.00-0.03 [facility] Comment on above: Performed By: #### C BC ####[facility] [address] [place] [address]Dr. Paola Moreno IG % 0.4 % Normal 0.0-0.5 [facility] Comment on above: Performed By: #### C BC ####[facility] [address] [address]Dr. Paola Moreno LYMPH # 1.4 103/ul Normal 1.2-3.8 [facility] Comment on above: Performed By: #### C BC ####[facility] [address] [place] [address]Dr. Paola Moreno Lymphocytes/100 WBC (Bld) 17.2 % Critically low 20.5-60.0 [facility] Comment on above: Performed By: #### C BC ####[facility] [address] [place] [address]Dr. Paola Moreno MANUAL DIFF REQ NO Normal [facility] Comment on above: Performed By: #### C BC ####[facility] [address] [place] [id number]. Paola Moreno MCH (RBC) [Entitic mass] 29.6 pg Normal 26.7-34.0 [facility] Comment on above: Performed By: #### C BC ####[facility] [address] [place] [id number]. Paola Moreno MCHC (RBC) [Mass/Vol] 33.1 g/dL Normal 29.9-35.2 [facility] Comment on above: Performed By: #### C BC ####[facility] [address] [place] [address]Dr. Paola Moreno MCV (RBC) [Entitic vol] 89.3 fL Normal 81.0-99.0 [facility] Comment on above: Performed By: #### C BC ####[facility] [address] [place] [address]Dr. Paola Moreno MONO # 0.7 103/ul Normal 0.3-0.8 [facility] Comment on above: Performed By: #### C BC ####[facility] [address] [place] [address]Dr. Paola Moreno Monocytes/100 WBC (Bld) 7.8 % Normal 1.7-12.0 [facility] Comment on above: Performed By: #### C BC ####[facility] [address] [place] [id number]. Paola Moreno NEUT # 6.0 103/ul Normal 1.4-6.5 [facility] Comment on above: Performed By: #### C BC ####[facility] [address] [place], [place] [address]Dr. Paola Moreno Neutrophils/100 WBC (Bld) 71.3 % Normal 43.0-75.0 [facility] Comment on above: Performed By: #### C BC ####[facility] [address] [place], [place] [address]Dr. Paola Moreno Platelet mean volume (Bld) [Entitic vol] 10.6 fL Normal 9.5-13.5 [facility] Comment on above: Performed By: #### C BC ####[facility] [address] [place], [place] [address]Dr. Paola Moreno PLT 191 103/ul Normal 150-450 [facility] Comment on above: Performed By: #### C BC ####[facility] [address] [place], [place] [address]Dr. Paola Moreno RBC 4.94 106/ul Normal 4.20-5.40 [facility] Comment on above: Performed By: #### C BC ####[facility] [address] [place] [id number]. Paola Moreno WBC 8.4 103/ul Normal 4.0-11.0 [facility] Comment on above: Performed By: #### C BC ####[facility] [address] [place] [address]Dr. Paola Moreno FREE T3on 09-17-2022 FREE T3 2.55 pg/mlL Normal 2.18-3.98 [facility] Comment on above: Performed By: #### T SH, LIPID, BMP, LIVER, FT3 #### [facility] [address] [address] [address] Paola Moreno FREE T4on 09-17-2022 Free T4 [Mass/Vol] 0.84 ng/dL Normal 0.76-1.46 [facility] Comment on above: Performed By: #### F T4 #### [facility] [address] [address] [address] Paola Moreno GLYCOHEMOGLOBIN A1Con 2022 ADA RECOMMENDATION SEE BELOW Normal [facility] Comment on above: Result Comment: ADA RECOMMENDED LIMIT 4.0 - 6.0 ADA THERAPEUTIC TARGET < 7.0 ACTION SUGGESTED > 7.0 Performed By: #### A 1C #### [facility] [address] [place] [address] Dr. Paola Moreno Glucose [Mass/Vol] 85 mg/dL Normal [facility] Comment on above: Performed By: #### A 1C #### [facility] [address] [place] [address] Dr. Paola Moreno HbA1c (Bld) [Mass fraction] 4.6 % Normal 4.5-6.2 [facility] Comment on above: Performed By: #### A 1C #### [facility] [address] [place] [address] Dr. Paola Moreno LIPID PROFILEon 09-17-2022 CHOL-HDL RATIO NORM SEE BELOW Normal [facility] Comment on above: Result Comment: 3.3 - 4.4 LOW RISK 4.4 - 7.1 AVERAGE RISK 7.1 - 11.0 MODERATE RISK >11.0 HIGH RISK Performed By: #### T SH, LIPID, BMP, LIVER, FT3 #### [facility] [address] [address] [address] Paola Moreno Cholesterol [Mass/Vol] 162 mg/dL Normal <=200 [facility] Comment on above: Performed By: #### T SH, LIPID, BMP, LIVER, FT3 #### [facility] [address] [address] [address] Paola Mroeno Cholesterol in HDL [Mass/Vol] 88 mg/dL Critically high 40-60 [facility] Comment on above: Performed By: #### T SH, LIPID, BMP, LIVER, FT3 #### [facility] [address] [address] [address] Paola Moreno Cholesterol in LDL [Mass/Vol] 38.2 mg/dL Normal [facility] Comment on above: Performed By: #### T SH, LIPID, BMP, LIVER, FT3 #### [facility] [address] [address] [address] Paola Moreno Cholesterol.total/Ch olesterol in HDL [Mass ratio] 1.8 {ratio} Normal [facility] Comment on above: Performed By: #### T SH, LIPID, BMP, LIVER, FT3 #### [facility] [address] [address] [address] Paola Moreno HDL NORMAL > or = 60 mg/dl - LO W CARDIOVASCULAR RISK <40 mg/dl - HIGH CARDIOVASCULAR RISK Normal [facility] Comment on above: Performed By: #### T SH, LIPID, BMP, LIVER, FT3 #### [facility] [address] [place] [address] Dr. Paola Moreno LDL CALC NORMAL SEE BELOW Normal [facility] Comment on above: Result Comment: <100 mg/dl OPTIMAL 100 - 129 mg/dl NEAR OR ABOVE OPTIMAL 130 - 159 mg/dl BORDERLINE HIGH 160 - 189 mg/dl HIGH >190 mg/dl VERY HIGH Performed By: #### T SH, LIPID, BMP, LIVER, FT3 #### [facility] [address] [address] [address] Paola Moreno Triglyceride [Mass/Vol] 179 mg/dL Critically high <=150 [facility] Comment on above: Performed By: #### T SH, LIPID, BMP, LIVER, FT3 #### [facility] [address] [address] [address] Paola Moreno VLDL CALC 35.8 mg/dL Normal [facility] Comment on above: Performed By: #### T SH, LIPID, BMP, LIVER, FT3 #### [facility] [address] [address] [address] Paola Moreno LIVER PROFILEon 09-17-2022 Albumin [Mass/Vol] 3.3 g/dL Critically low 3.4-5.[address] [facility] Comment on above: Performed By: #### T SH, LIPID, BMP, LIVER, FT3 #### [facility] [address] [address] [address] Paola Moreno Albumin/Globulin [Mass ratio] 0.8 {ratio} Normal [facility] Comment on above: Performed By: #### T SH, LIPID, BMP, LIVER, FT3 #### [facility] [address] [place] [address] Dr. Paola Moreno ALP [Catalytic activity/Vol] 69 U/L Normal 46-116 [facility] Comment on above: Performed By: #### T SH, LIPID, BMP, LIVER, FT3 #### [facility] [address] [address] [address] Paola Moreno ALT [Catalytic activity/Vol] 24 U/L Normal 14-59 [facility] Comment on above: Performed By: #### T SH, LIPID, BMP, LIVER, FT3 #### [facility] [address] [address] [address] Paola Moreno AST [Catalytic activity/Vol] 20 U/L Normal 15-37 [facility] Comment on above: Performed By: #### T SH, LIPID, BMP, LIVER, FT3 #### [facility] [address] [address] [address] Paola Moreno BILI, CONJUGATED 0.1 mg/dL Normal 0.0-0.2 [facility] Comment on above: Performed By: #### T SH, LIPID, BMP, LIVER, FT3 #### [facility] [address] [address] [address] Paola Moreno Bilirubin [Mass/Vol] 0.4 mg/dL Normal 0.2-1.0 [facility] Comment on above: Performed By: #### T SH, LIPID, BMP, LIVER, FT3 #### [facility] [address] [place] [address] Dr. Paola Moreno Globulin (S) [Mass/Vol] 4.0 g/dL Normal [facility] Comment on above: Performed By: #### T SH, LIPID, BMP, LIVER, FT3 #### [facility] [address] [address] [address] Paola Moreno Protein [Mass/Vol] 7.3 g/dL Normal 6.4-8.2 [facility] Comment on above: Performed By: #### T SH, LIPID, BMP, LIVER, FT3 #### [facility] [address] [place] [address] Dr. Paola Moreno PROF CHEM 8 (BAS METB)on Anion gap [Moles/Vol] 11.8 mmol/L Normal [facility] Comment on above: Performed By: #### T SH, LIPID, BMP, LIVER, FT3 #### [facility] [address] [place] [address] Dr. Paola Moreno Calcium [Mass/Vol] 9.0 mg/dL Normal 8.5-10.1 [facility] Comment on above: Performed By: #### T SH, LIPID, BMP, LIVER, FT3 #### [facility] [address] [place] [address] Dr. Paola Moreno Chloride [Moles/Vol] 103 mmol/L Normal 98-107 [facility] Comment on above: Performed By: #### T SH, LIPID, BMP, LIVER, FT3 #### [facility] [address] [place] [address] Dr. Paola Moreno CO2 [Moles/Vol] 30.5 mmol/L Normal 21.0-32.0 [facility] Comment on above: Performed By: #### T SH, LIPID, BMP, LIVER, FT3 #### [facility] [address] [place] [address] Dr. Paola Moreno Creatinine [Mass/Vol] 0.83 mg/dL Normal 0.55-1.02 [facility] Comment on above: Performed By: #### T SH, LIPID, BMP, LIVER, FT3 #### [facility] [address] [address] [address] Paola Moreno EGFR-AF MALIAN >60 Normal >=60 [facility] Comment on above: Performed By: #### T SH, LIPID, BMP, LIVER, FT3 #### [facility] [address] [address] [address] Paola Moreno EGFR-NON AF MALIAN >60 Normal >=60 [facility] Comment on above: Performed By: #### T SH, LIPID, BMP, LIVER, FT3 #### [facility] [address] [address] [address] Paola Moreno Glucose [Mass/Vol] 122 mg/dL Critically high 74-106 [facility] Comment on above: Performed By: #### T SH, LIPID, BMP, LIVER, FT3 #### [facility] [address] [address] [address] Paola Moreno Potassium [Moles/Vol] 4.3 mmol/L Normal 3.5-5.1 [facility] Comment on above: Performed By: #### T SH, LIPID, BMP, LIVER, FT3 #### [facility] [address] [address] [address] Paola Moreno Sodium [Moles/Vol] 141 mmol/L Normal 136-145 [facility] Comment on above: Performed By: #### T SH, LIPID, BMP, LIVER, FT3 #### [facility] [address] [address] [address] Paola Moreno Urea nitrogen [Mass/Vol] 12.0 mg/dL Normal 7.0-18.0 [facility] Comment on above: Performed By: #### T SH, LIPID, BMP, LIVER, FT3 #### [facility] [address] [address] [address] Paola Moreno Urea nitrogen/Creatinine [Mass ratio] 14.5 mg/mg Normal [facility] Comment on above: Performed By: #### T SH, LIPID, BMP, LIVER, FT3 #### [facility] [address] [address] [address] Paola Moreno TSHon 09-17-2022 TSH 3.671 uIU/mL Normal 0.358-3.740 [facility] Comment on above: Performed By: #### T SH, LIPID, BMP, LIVER, FT3 #### [facility] [id number] Paola Moreno XR WRIST RT MIN 3 Von 2022 XR WRIST RT MIN 3 V EXAM: XR WRIST RT [place] N 3 V HISTORY: Pain of right [...] by: GUMARO GUEVARA Date: 2022-09-17 12:41 Normal [facility] Vital Signs Date Time Vital Sign Value Performing Clinician Magdieli maria ly 05-26-2024 10:02-0500 Body height 160 cm Mikey Singh MD Work Phone: [facility] 05-26-2024 10:02-0500 Body mass index (BMI) [Ratio] 32.06 kg/m2 Mikey Singh MD Work Phone: [facility] 05-26-2024 10:02-0500 Body temperature 97.3 [degF] Mikey Singh MD Work Phone: [facility] 05-26-2024 10:02-0500 Body weight 82.1 kg Mikey Singh MD Work Phone: [facility] 05-26-2024 10:02-0500 Diastolic blood pressure 80 mm[Hg] Mikey Singh MD Work Phone: [facility] 05-26-2024 10:02-0500 Heart rate 63 /min Mikey Singh MD Work Phone: [facility] 05-26-2024 10:02-0500 Respiratory rate 22 /min Mikey Singh MD Work Phone: [facility] 05-26-2024 10:02-0500 SaO2% (BldA) [Mass fraction] 98 % Mikey Singh MD Work Phone: [facility] 05-26-2024 10:02-0500 Systolic blood pressure 140 mm[Hg] Mikey Singh MD Work Phone: [facility] 03-09-2024 11:56-0500 Body height 160 cm Mikey Singh MD Work Phone: [facility] 03-09-2024 11:56-0500 Body mass index (BMI) [Ratio] 33.13 kg/m2 Mikey Singh MD Work Phone: [facility] 03-09-2024 11:56-0500 Body temperature 97.59 [degF] Mikey Singh MD Work Phone: [facility] 03-09-2024 11:56-0500 Body weight 84.82 kg Mikey Singh MD Work Phone: [facility] 03-09-2024 11:56-0500 Diastolic blood pressure 86 mm[Hg] Mikey Singh MD Work Phone: [facility] 03-09-2024 11:56-0500 Heart rate 64 /min Mikey Singh MD Work Phone: [facility] 03-09-2024 11:56-0500 Respiratory rate 18 /min Mikey Singh MD Work Phone: [facility] 03-09-2024 11:56-0500 SaO2% (BldA) [Mass fraction] 98 % Mikey Singh MD Work Phone: [facility] 03-09-2024 11:56-0500 Systolic blood pressure 146 mm[Hg] Mikey Singh MD Work Phone: [facility] 02-01-2024 11:25-0400 Body height 160 cm Mikey Singh MD Work Phone: [facility] 02-01-2024 11:25-0400 Body mass index (BMI) [Ratio] 33.13 kg/m2 Mikey Singh MD Work Phone: [facility] 02-01-2024 11:25-0400 Body temperature 97.11 [degF] Mikey Singh MD Work Phone: [facility] 02-01-2024 11:25-0400 Body weight 84.82 kg Mikey Singh MD Work Phone: [facility] 02-01-2024 11:25-0400 Diastolic blood pressure 86 mm[Hg] Mikey Singh MD Work Phone: [facility] 02-01-2024 11:25-0400 Heart rate 68 /min Mikey Singh MD Work Phone: [facility] 02-01-2024 11:25-0400 Respiratory rate 22 /min Mikey Singh MD Work Phone: [facility] 02-01-2024 11:25-0400 SaO2% (BldA) [Mass fraction] 98 % Mikey Singh MD Work Phone: [facility] 02-01-2024 11:25-0400 Systolic blood pressure 160 mm[Hg] Mikey Singh MD Work Phone: [facility] Encounters Encounter Date Encounter Type Care Provider Facility Start: 06-07-2024 ambulatory Douglas NGUYEN Facility :[facility] Start: 05-30-2024 End: 05-30-2024 Refill Mikey Singh MD Work Phone: [facility] Comment on above: Primary insomnia Start: 05-29-2024 End: 05-29-2024 Refill Mikey Singh MD Work Phone: [facility] Comment on above: DDD (degenerative di sc disease), lumbar; Gastroesophageal reflux disease without esophagitis; Depression, unspecified depression type (CMS/HCC); Hypokalemia; Dyslipidemia (CMS/HCC); Primary insomnia; Primary hypertension (CMS/HCC) Start: 05-29-2024 ambulatory Douglas NGUYEN Facility:[facility] Start: 05-26-2024 End: 05-26-2024 Bamboo flowsheet Mikey Singh MD Work Phone: [facility] Start: 05-26-2024 End: 05-26-2024 Bamboo flowsheet Mikey Singh MD Work Phone: [facility] Start: 05-26-2024 End: 05-26-2024 Office outpatient visit 25 minutes Mikey Singh MD Work Phone: [facility] Comment on above: Type 2 diabetes danna itus with hyperglycemia, without long-term current use of insulin (CMS/HCC) (Primary Dx); Benign hypertension (CMS/HCC); Degeneration of intervertebral disc of lumbar region with discogenic back pain and lower extremity pain; Degenerative cervical spinal stenosis; Generalized anxiety disorder (CMS/HCC); Primary insomnia; Breast cancer screening by mammogram; Colon cancer screening Start: 05-01-2024 End: 05-01-2024 Refill Mikey Singh MD Work Phone: [facility] Comment on above: SOB (shortness of br eath) (Primary Dx); Anxiety; Hypokalemia; Allergic contact dermatitis due to adhesives; DDD (degenerative disc disease), lumbar; Gastroesophageal reflux disease without esophagitis; Primary insomnia; Primary hypertension (CMS/HCC) Start: 03-26-2024 End: 03-27-2024 Refill Mikey Singh MD Work Phone: [facility] Comment on above: Primary insomnia Start: 03-09-2024 End: 03-09-2024 Bamboo flowsheet Mikey Singh MD Work Phone: [facility] Start: 03-09-2024 End: 03-09-2024 Bamboo flowsheet Mikey Singh MD Work Phone: [facility] Start: 03-09-2024 End: 03-09-2024 Office outpatient visit 15 minutes Mikey Singh MD Work Phone: [facility] Comment on above: Benign hypertension (CMS/HCC) (Primary Dx) Start: 03-09-2024 End: 03-09-2024 ambulatory MIKEY SINGH Not Available Start: 03-02-2024 End: 03-02-2024 Refill Mikey Singh MD Work Phone: [facility] Comment on above: DDD (degenerative di sc disease), lumbar Start: 02-07-2024 End: 02-07-2024 ambulatory ISABEL [facility] Start: 02-01-2024 End: 02-01-2024 Bamboo flowsheet Mikey Singh MD Work Phone: [facility] Start: 02-01-2024 End: 02-01-2024 Bamboo flowsheet Mikey Singh MD Work Phone: [facility] Start: 02-01-2024 End: 02-01-2024 Transitional care manage srvc 7 day discharge Mikey Singh MD Work Phone: [facility] Comment on above: 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); Allergic contact dermatitis due to adhesives; Benign hypertension (CMS/HCC); DDD (degenerative disc disease), lumbar Start: 02-01-2024 End: 02-01-2024 ambulatory MIKEY SINGH Not Available Start: 01-27-2024 Emergency department patient visit DAVE REYNOLDS [facility] Start: 01-27-2024 Emergency department patient visit DAVE REYNOLDS [facility] Start: 01-27-2024 End: 01-28-2024 Evaluation and management of inpatient GWEN WILLIS [facility] Start: 01-27-2024 End: 01-29-2024 Clinisync Result Encounter Generic External Data Provider [facility] Unsolicited Start: 01-27-2024 End: 01-29-2024 Clinisync Result Encounter Generic External Data Provider [facility] Unsolicited Start: 12-27-2023 End: 12-28-2023 Refill Mikey Singh MD Work Phone: [facility] Comment on above: Chronic pain of both knees (Primary Dx); Primary insomnia; DDD (degenerative disc disease), lumbar Start: 12-01-2023 End: 12-01-2023 ambulatory CLARA CAMACHO Not Available Start: 11-25-2023 End: 11-25-2023 ambulatory MIKEY SINGH Not Available Start: 06-15-2023 Clinisync Result Encounter Neda Singh MD Work Phone: [facility] Unsolicited Start: 06-15-2023 Clinisync Result Encounter Neda Singh MD Work Phone: [facility] Unsolicited Start: 06-14-2023 Refill Mikey Jaramillo Work Phone: [facility] Comment on above: Hypokalemia (Primary Dx); Primary insomnia Start: 05-10-2023 End: 05-10-2023 ambulatory MIKEY SINGH Not Available Start: 10-01-[address] MIKEY SINGH Facil ity:[facility] Start: 09-25-2022 End: 09-26-[address] MIKEY SINGH Facility:[facility] Start: 09-17-2022 End: 09-18-[address] MIKEY SINGH Facility:[facility] Procedures Date Procedure Procedure Detail Performing Clinician Start: 01-27-2024 Bacteria identified in Urine by Culture Generic External Data Provider Start: 06-15-2023 ALL BASIC METABOLIC PANEL Mikey Singh MD Work Phone: Start: 05-12-2023 Mammography Mikey mcguire MD Work Phone: Plan of Treatment Date Care Activity Detail Author Start: 07-04-2025 Glaucoma screening Diabetes: R etinopathy Screening [facility] Start: 03-09-2025 Medicare Annual Wellness (AWV) Medicare Annual Wellness (AWV) [facility] Start: 01-26-2025 Urine screening for protein Diabetes: Urine Protein Screening [facility] Start: 11-29-2024 Urine screening for protein Diabetes: Urine Protein Screening [facility] Start: 11-23-2024 End: 11-23-2024 Patient encounter procedure 11/23/2024 10:15 AM EDT Office Visit [facility] [address] [place] [phone] Mikey Singh MD [address] [place] [phone] [facility] Start: 06-01-2024 Hemoglobin A1c measurement Diabetes: Hemoglobin A1C [facility] Start: 05-26-2024 End: 05-26-2025 Hemoglobin A1c/Hemoglobin.total in Blood Hemoglobin A1c Lab Routine Type 2 diabetes mellitus with hyperglycemia, without long-term current use of insulin ([facility]) Expected: 05/26/2024 (Approximate), Expires: 05/26/2025 [facility] Work Phone: Comment on above: Expected: 05/26/2024 (Approximate), Expires: 05/26/2025 Start: 05-26-2024 End: 07-24-2025 MG Breast - bilateral Screening Bilateral screening mammogram Imaging Routine Breast cancer screening by mammogram Expected: 05/26/2024, Expires: 07/24/2025 [facility] Comment on above: Expected: 05/26/2024 , Expires: 07/24/2025 Start: 05-26-2024 End: 05-26-2024 Patient encounter procedure 05/26/2024 9:45 AM EST Office Visit [facility] [address] [place] [phone] Mikey Singh MD [address] [place] [phone] Arrived [facility] Comment on above: Arrived Start: 05-23-2024 End: 05-23-2024 Patient encounter procedure 05/23/2024 10:45 AM EST Office Visit [facility] [address] [place] [phone] Mikey Singh MD [address] [place] [phone] [facility] Start: 05-12-2024 Screening for malign ant neoplasm of breast Mammogram [facility] Start: 03-09-2024 End: 03-09-2024 Patient encounter procedure 03/09/2024 11:45 AM EST Office Visit [facility] [address] [place] [phone] Mikey Singh MD [address] [place] [phone] Arrived [facility] Comment on above: Arrived Start: 02-01-2024 End: 02-01-2024 Patient encounter procedure 02/01/2024 11:30 AM EDT Office Visit [facility] [address] [place] [phone] Mikey Singh MD [address] [place] [phone] Arrived [facility] Comment on above: Arrived Start: 01-02-2024 Influenza vaccination Influenza Vacc ine (#1) [facility] Start: 11-25-2023 End: 11-25-2023 Patient encounter procedure 11/25/2023 11:15 AM EDT Office Visit [facility] [address] [place] [phone] Mikey Singh MD [address] [place] [address] [facility] Start: 01-01-2023 Influenza vaccination Influenza Vacc ine (#1) [facility] Start: 12-04-1974 Urine screening for protein Diabetes: Urine Protein Screening [facility] Start: 12-04-1965 Glaucoma screening Diabetes: R etinopathy Screening [facility] Start: 12-04-1961 Pneumococcal Vaccine : 65+ Years (1 - PCV) Pneumococcal Vaccine: 65+ Years (1 - PCV) [facility] Start: 12-04-1961 Pneumococcal Vaccine : 65+ Years (1 of 2 - PCV) Pneumococcal Vaccine: 65+ Years (1 of 2 - PCV) [facility] Start: 1955 Hemoglobin A1c measurement Diabetes: Hemoglobin A1C [facility] Start: 1955 Medicare Annual Wellness (AWV) Medicare Annual Wellness (AWV) [facility] Start: 1955 Screening for malign ant neoplasm of colon [facility] Payers Date Payer Category Payer Private Health Insurance [id number] 2024 Private Health Insurance CLI [id number] 2020 Medicare [id number] 2020 Unknown BCBS BCBS [id number] 2020-Present [phone] [address] [place] [address] [id number] 2009 Unknown [id number] 1959 Medicare [id number] 1959 Medicare [id number] 1955 Unknown [id number] 93 1955 Unknown [id number] 93 1955 Unknown [id number] 93 1955 Unknown [id number] 259 1955 Unknown [id number] 259 1955 Unknown [id number] 259 1955 Unknown [id number] 259 1955 Unknown [id number] 259 1955 Unknown [id number] 27 1955 Unknown [id number] 27 Social History Date Type Detail Facility Start: 05-10-2023 End: 12-01-2023 Tobacco smoking status HIIS Ex-smoker [facility] Start: 05-03-1983 End: 05-03-2013 History of tobacco use Current smoker [facility] Start: 05-03-1983 End: 05-03-2013 History of tobacco use Cigarette Smoker [facility] Start: 05-10-2023 End: 12-01-2023 Tobacco use and exposure Smokeless tobacco non-user [facility] Start: 05-10-2023 End: 11-23-2023 [facility] of Social function [facility] Start: 05-10-2023 End: 11-23-2023 Tobacco use panel [facility] Start: 1955 Sex Assigned At Not on file [facility] Start: 12-01-2023 End: 05-26-2024 Alcoholic beverage intake Lifetime non-drinker (finding) [facility] How often do you nee d to have someone help you when you read instructions, pamphlets, or other written material from your doctor or pharmacy [SILS] Never [facility] Do you belong to any clubs or organizations such as restorationism groups, unions, fraternal or athletic groups, or school groups? No [facility] Are you now , , , , never or living with a partner? [facility] How often to you hav e a drink containing alcohol? Never [facility] How hard is it for y ou to pay for the very basics like food, housing, medical care, and heating Somewhat hard [facility] Do you feel stress - tense, restless, nervous, or anxious, or unable to sleep at night because your mind is troubled all the time - these days [OSQ] Very much [facility] (I/We) worried wheth er (my/our) food would run out before (I/we) got money to buy more. Often true [facility] Clinical Notes 01-27-2024 to 05-29-2024 Telephone Encounter - Mikey Singh MD - 05/29/2024 3:10 PM ESTTelephone Encounter - Mikey Singh MD - 05/29/2024 3:10 PM ESTMikey Singh MD - 05/26/2024 10:45 AM EST Note Date & Type Note Facility 05-29-2024 Telephone encounter Note [facility] 05-29-2024 Miscellaneous Notes documented in this encounter [facility] 05-26-2024 History of Presen t illness Narrative Associated Problem(s): Type 2 diabetes mellitus with hyperglycemia, without long-term current use of insulin ([facility]) Not checking BS and due for A1C. Stick to ADA diet and limit carbs. Associated Problem(s): Primary insomnia Sleeping well with medication and continue. Associated Problem(s): Generalized anxiety disorder (CMS/HCC) Symptoms stable with prozac and continue. Associated Problem(s): Degenerative cervical spinal stenosis Pain stable and use ultram PRN. Continue home PT exercises. Associated Problem(s): DDD (degenerative disc disease), lumbar Pain stable and use ultram PRN. Continue home PT exercises. Associated Problem(s): Benign hypertension (CMS/HCC) BP controlled and monitor PRN. Images from the original note were not included. Subjective Patient ID: Fatuma Nance is a 68 y.o. female who presents for Follow-up (Right side pain/Balance issues). Follow up DM, HTN, anxiety, insomnia, neck and back pain. Patient stable today. Not checking BS away from office. Tries to eat well and stick to ADA diet. Denies signs of elevated BS such as polyuria, polyphagia or polydipsia. Due for A1C. Checking BP PRN and typically controlled. BP normal today. Taking medication daily and tolerating without side effects. Pain stable. Still performing home ROM exercise and helps. Mild pain in upper back and across top shoulders. Pain tolerable with medication. Back pain stable. Pain in low back and across top hips. Pain radiates into bilateral gluteal region and down legs when severe. Pain worse with walking, bending, and standing. Using ultram and helps. Anxiety stable. Not as stressed out or overwhelmed. Not as nervous or worry as much. Not as hines or irritable. Sleeping well with ambien. Able to fall asleep and stay asleep. Wakes up rested in am and not tired during the day. Review of Systems Respiratory: Negative for cough, shortness of breath and wheezing. Cardiovascular: Negative for chest pain and palpitations. Gastrointestinal: Negative for abdominal pain, diarrhea, nausea and vomiting. Genitourinary: Negative for dysuria. Objective Physical Exam Constitutional: General: She is not in acute distress. Appearance: Normal appearance. HENT: Head: Normocephalic. Right Ear: Tympanic membrane normal. Left Ear: Tympanic membrane normal. Eyes: Extraocular Movements: Extraocular movements intact. Pupils: Pupils are equal, round, and reactive to light. Cardiovascular: Rate and Rhythm: Normal rate and regular rhythm. Heart sounds: No murmur heard. No friction rub. No gallop. Pulmonary: Effort: Pulmonary effort is normal. Breath sounds: Normal breath sounds. No wheezing, rhonchi or rales. Abdominal: General: Bowel sounds are normal. There is no distension. Palpations: Abdomen is soft. Tenderness: There is no abdominal tenderness. There is no guarding or rebound. Musculoskeletal: Cervical back: Neck supple. Right lower leg: No edema. Left lower leg: No edema. Neurological: Mental Status: She is alert. Assessment/Plan Problem List Items Addressed This Visit Benign hypertension (CMS/HCC) BP controlled and monitor PRN. Relevant Medications losartan (Cozaar) 50 MG tablet DDD (degenerative disc disease), lumbar Pain stable and use ultram PRN. Continue home PT exercises. Generalized anxiety disorder (CMS/HCC) Symptoms stable with prozac and continue. Type 2 diabetes mellitus with hyperglycemia, without long-term current use of insulin (CMS/HCC) - Primary Not checking BS and due for A1C. Stick to ADA diet and limit carbs. Relevant Orders Hemoglobin A1c Primary insomnia Sleeping well with medication and continue. Degenerative cervical spinal stenosis Pain stable and use ultram PRN. Continue home PT exercises. Other Visit Diagnoses Breast cancer screening by mammogram Relevant Orders Bilateral screening mammogram Colon cancer screening Relevant Orders Ambulatory referral to General Surgery documented in this encounter [facility] 04-13-2024 Note Addendum created 04/25 by Rafael Hoyos MD Attestation recorded in Intraprocedure, Flowsheet accepted, Intraprocedure Attestations filed [facility] 03-09-2024 History of Presen t illness Narrative Associated Problem(s): Benign hypertension (CMS/HCC) BP elevated over the past few weeks and monitor PRN. Possibly related to sodium intake. Discussed DASH diet and patient will reduce sodium. If BP remains elevated then increase losartan to BID. Images from the original note were not included. Subjective Patient ID: Fatuma Nance is a 68 y.o. female who presents for Follow-up (Blood pressure high). Concerned of elevated blood pressure. Monitoring BP at home and 140-160 or higher systolic and 90-100 diastolic. BP 146/86 today but 160/86 last visit. Taking losartan daily. Since surgery to repair hernia and SBO patient hasn't been cooking as much and eating frozen meals. Concerned if increased salt intake having impact on blood pressure. Review of Systems Respiratory: Negative for cough, shortness of breath and wheezing. Cardiovascular: Negative for chest pain and palpitations. Gastrointestinal: Negative for abdominal pain, diarrhea, nausea and vomiting. Genitourinary: Negative for dysuria. Objective Physical Exam Constitutional: General: She is not in acute distress. Appearance: Normal appearance. HENT: Head: Normocephalic. Right Ear: Tympanic membrane normal. Left Ear: Tympanic membrane normal. Eyes: Extraocular Movements: Extraocular movements intact. Pupils: Pupils are equal, round, and reactive to light. Cardiovascular: Rate and Rhythm: Normal rate and regular rhythm. Heart sounds: No murmur heard. No friction rub. No gallop. Pulmonary: Effort: Pulmonary effort is normal. Breath sounds: Normal breath sounds. No wheezing, rhonchi or rales. Abdominal: General: Bowel sounds are normal. There is no distension. Palpations: Abdomen is soft. Tenderness: There is no abdominal tenderness. There is no guarding or rebound. Musculoskeletal: Cervical back: Neck supple. Right lower leg: No edema. Left lower leg: No edema. Neurological: Mental Status: She is alert. Assessment/Plan Problem List Items Addressed This Visit Benign hypertension (CMS/HCC) - Primary BP elevated over the past few weeks and monitor PRN. Possibly related to sodium intake. Discussed DASH diet and patient will reduce sodium. If BP remains elevated then increase losartan to BID. documented in this encounter [facility] 03-02-2024 Telephone encounter Note Patient called states her bp has been running high on the diastolic number, between 85-100 regularly, and was inquiring if she needed a med. [facility] 03-02-2024 Miscellaneous Notes Patient called states her bp has been running high on the diastolic number, between 85-100 regularly, and was inquiring if she needed a med. documented in this encounter [facility] 02-07-2024 Note Attestation signed by Isabel Carrillo MD at 02/13/2024 11:50 PM By using the attestations below, the signing clinician agrees that I have read and verify that the documentation has been personally reviewed by me and ensure that the documentation accurately reflects the encounter. GC: I personally saw this patient on the day of the encounter, performed the reynolds portion(s) of the service and participated in the management and confirm the resident's documentation. Please note there may be an additional personal documentation from me. Additional Comments: follow-up as needed Subjective HPI: Fatuma Nance is a 68 y.o. female who presents today for postop visit. Patient had a spigelian hernia repair on 01/27/24 that was causing acute small bowel obstruction, during surgery small bowel was completely reduced from hernia, no bowel compromise requiring resection, hernia was repaired primarily. Patient endorses feeling great, no pain at all, tolerating diet, passing gas and having bowel movements. Denies any concerns at this time. Objective Visit Vitals BP 145/85 (BP Location: Right arm, Patient Position: Sitting) Pulse 56 Temp 35.9 ???C (96.7 ???F) (Temporal) Physical exam: Gen: no acute distress, sitting up in chair Neuro: alert, awake, oriented x3, motor and sensory grossly intact HEENT: atraumatic, normocephalic, PERRL, mucosa pink and dry CVS: regular rate, palpable radial pulses bilaterally Resp: non labored breathing on room air ABD: soft, non distended, surgical incisions noted closed, glue in place, no erythema or abnormal discharges concerning for infection. MSK: no pitting edema Skin: warm to touch, no lymphadenopathy of the upper torso and neck Assessment/Plan Fatuma Nance is a 68 F s/p spigelian hernia repair. Patient recovering well from surgery, no new concerns. Follow up as needed. Continue weight lifting recommendations. No diagnosis found. No orders of the defined types were placed in this encounter. No results found for this or any previous visit (from the past 36 hour(s)). No follow-ups on file. [facility] 02-07-2024 Note Subjective Patient ID: Fatuma Nance is a 68 y.o. female who presents for Post-op ( s/p lap repair of Spegelian hernia 01/26). HPI Review of Systems Musculoskeletal: Positive for back pain and neck pain. Skin: Positive for rash. All other systems reviewed and are negative. Objective There were no vitals taken for this visit. Physical Exam Assessment/Plan No diagnosis found. No orders of the defined types were placed in this encounter. No results found for this or any previous visit (from the past 36 hour(s)). No follow-ups on file. [facility] 02-01-2024 History of Presen t illness Narrative Associated Problem(s): Spigelian hernia with bowel obstruction Doing well after surgery and follow up with specialists. Associated Problem(s): Contact dermatitis due to adhesives Developed rash after patches and use steroid cream. Associated Problem(s): Benign hypertension (CMS/HCC) BP elevated and monitor PRN. Possibly related to postop pain but if remains elevated will increase losartan. Images from the original note were not included. Subjective Patient ID: Fatuma Nance is a 68 y.o. female who presents for Follow-up ([facility] f/up surgery/). Hospital follow up from 01/26-01/27 for incarcerated hernia. Developed sudden onset of RLQ abdominal pain. Severe pain in abdomen and radiated to back. Developed nausea and emesis. To ER and CT showed incarcerated hernia with SBO. No surgery available and transferred to [facility]. Taken to OR for repair and bowel viable. Did well after surgery and discharged home. Mild incisional pain but much improved and different than prior to surgery. Decreased appetite but no nausea. Drinking well. Developed redness from adhesive on telemetry patches. Skin red, raised and very itchy. BP elevated today but not checking away from office. Taking medication daily. Review of Systems Respiratory: Negative for cough, shortness of breath and wheezing. Cardiovascular: Negative for chest pain and palpitations. Gastrointestinal: Negative for abdominal pain, diarrhea, nausea and vomiting. Genitourinary: Negative for dysuria. Objective Physical Exam Constitutional: General: She is not in acute distress. Appearance: Normal appearance. HENT: Head: Normocephalic. Right Ear: Tympanic membrane normal. Left Ear: Tympanic membrane normal. Eyes: Extraocular Movements: Extraocular movements intact. Pupils: Pupils are equal, round, and reactive to light. Cardiovascular: Rate and Rhythm: Normal rate and regular rhythm. Heart sounds: No murmur heard. No friction rub. No gallop. Pulmonary: Effort: Pulmonary effort is normal. Breath sounds: Normal breath sounds. No wheezing, rhonchi or rales. Abdominal: General: Bowel sounds are normal. There is no distension. Palpations: Abdomen is soft. Tenderness: There is no abdominal tenderness. There is no guarding or rebound. Musculoskeletal: Cervical back: Neck supple. Right lower leg: No edema. Left lower leg: No edema. Neurological: Mental Status: She is alert. Assessment/Plan Problem List Items Addressed This Visit Benign hypertension (CMS/HCC) BP elevated and monitor PRN. Possibly related to postop pain but if remains elevated will increase losartan. DDD (degenerative disc disease), lumbar Relevant Medications traMADol (Ultram) 50 MG tablet Spigelian hernia with bowel obstruction - Primary Doing well after surgery and follow up with specialists. Contact dermatitis due to adhesives Developed rash after patches and use steroid cream. Relevant Medications triamcinolone (Kenalog) 0.5 % cream documented in this encounter [facility] 01-28-2024 Note 01/28/24 1409 Admission Assessment Questions Verify insurance with patient Yes Do you understand medical disease or what brought you into the hospital? Yes Who is your current PCP? Mikey Singh MD Can I schedule a follow up appointment for you at the time of discharge? Yes Do you understand why you are taking your current medications? Yes Are you taking your medications as prescribed? Yes Did patient provide teach back? No Pharmacy Bedside Delivery Status Interested Does the patient have a telehealth case manager assigned to them through their insurance? No Living Arrangement (Current/Prior to Hospitalization) Private residence (Home, 1st floor apartment with 5 steps to enter.) Does the patient have history of HHC or SNF? Yes (HHC: When living in [place].) Assistive Device Walker;Cane Patient's goal for discharge Home Was patient reminded that goal for discharge is 11am? Yes Does the patient have transportation at discharge? Yes (Daughter to transport home.) Type of Residence Private residence Is PT/OT appropriate? No Is PT/OT ordered? No Is SW consult appropriate? No Is SW consult ordered? No Do you understand the benefits of MyChart? Yes Were you able to send link and activate [employer]? Yes (Patient states she already received a link to sign up already.) [facility] 01-28-2024 Note Patient: Fatuma mcguire Procedure Summary Date: 01/27/24 Room / Location: [facility] OPERATING ROOM 04 / [facility] Operating Room Anesthesia Start: 2355 Anesthesia Stop: 01/28/24 020 Procedure: REPAIR, HERNIA, LAPAROSCOPIC (Right) Diagnosis: (HERNIA) Surgeons: Shelley Munoz MD Responsible Provider: Rafael Hoyos MD Anesthesia Type: general ASA Status: 2 - Emergent Anesthesia Type: general Vitals Value Taken Time BP 133/72 01/28/24 0200 Temp 36.6 01/28/24 0200 Pulse 72 01/28/24 0200 Resp 18 01/28/24 0200 SpO2 98 01/28/24 0200 Anesthesia Post Evaluation Patient location during evaluation: PACU Patient participation: complete - patient participated Level of consciousness: awake Pain score: 1 Pain management: adequate Multimodal analgesia pain management approach Airway patency: patent Cardiovascular status: acceptable Respiratory status: acceptable Hydration status: acceptable Patient is hemodynamically stable and is able to be discharged from PACU per anesthesia protocol. No notable events documented. [facility] 01-28-2024 Note Airway Date/Time: 01/28/2024 12:00 AM Urgency: elective Airway not difficult General Information and Staff Patient location during procedure: OR Anesthesiologist: Rafael Hoyos MD Resident/COPY CLERK/CAA: Raul Arias MD Performed: resident/COPY CLERK/CAA Indications and Patient Condition Indications for airway management: anesthesia Spontaneous Ventilation: absent Sedation level: deep Preoxygenated: yes Patient position: sniffing Mask difficulty assessment: 1 - vent by mask Final Airway Details Final airway type: endotracheal airway Successful airway: ETT Cuffed: yes Successful intubation technique: video laryngoscopy Facilitating devices/methods: intubating stylet, cricoid pressure and Modified RSI Endotracheal tube insertion site: oral Blade: Rojas Blade size: #3 ETT size (mm): 7.5 Cormack-Lehane Classification: grade I - full view of glottis Placement verified by: chest auscultation and capnometry Measured from: lips ETT to lips (cm): 21 Number of attempts at approach: 1 Number of other approaches attempted: 0 [facility] 01-27-2024 Note Patient: Fatuma Spaulding Procedure Information Date/Time: 01/27/24 2210 Procedure: REPAIR, HERNIA, LAPAROSCOPIC POSSIBLE OPEN (Right) Location: [facility] OPERATING ROOM 04 / [facility] Operating Room Surgeons: Shelley Munoz MD Relevant Problems No relevant active problems Clinical information reviewed: Tobacco Allergies Med Hx Surg Hx OB Status Fam Hx Soc Hx Physical Exam Airway Mallampati: II TM distance: >3 FB Neck ROM: full Cardiovascular Rhythm: regular Rate: normal Dental - normal exam Pulmonary Breath sounds clear to auscultation Abdominal Anesthesia Plan ASA 2 - emergent general intravenous induction Postoperative administration of opioids is intended. Anesthetic plan and risks discussed with patient. Use of blood products discussed with who consented to blood products. Plan discussed with resident. Additional Equipment Requests [facility] Evaluation note Diagnosis Hypokalemia- Primary Hypopotassemia Primary insomnia Persistent disorder of initiating or maintaining sleep documented [facility] Diagnosis Spigelian hernia with bowel obstruction- Primary Allergic contact dermatitis due to adhesives Contact dermatitis and other eczema due to other chemical products Benign hypertension (CMS/HCC) Essential hypertension, benign DDD (degenerative disc disease), lumbar Degeneration of lumbar or lumbosacral intervertebral disc documented [facility]* Diagnosis Type 2 diabetes mellitus with hyperglycemia, without long-term current use of insulin (CMS/HCC)- Primary Benign hypertension (CMS/HCC) Essential hypertension, benign Generalized anxiety disorder (CMS/HCC) Generalized anxiety disorder Degenerative cervical spinal stenosis Spinal stenosis in cervical region DDD (degenerative disc disease), lumbar Degeneration of lumbar or lumbosacral intervertebral disc Primary insomnia Persistent disorder of initiating or maintaining sleep Screening mammogram for breast cancer Type 2 diabetes mellitus with hyperglycemia, without long-term current use of insulin (CMS/HCC)- Primary Benign hypertension (CMS/HCC) Essential hypertension, benign Acquired hypothyroidism (CMS/HCC) Unspecified hypothyroidism Primary insomnia Persistent disorder of initiating or maintaining sleep DDD (degenerative disc disease), lumbar Degeneration of lumbar or lumbosacral intervertebral disc Degenerative cervical spinal stenosis Spinal stenosis in cervical region Encounter for long-term current use of medication Dyslipidemia (CMS/HCC) Other and unspecified hyperlipidemia Colon cancer screening Special screening for malignant neoplasms, colon Spigelian hernia with bowel obstruction- Primary Allergic contact dermatitis due to adhesives Contact dermatitis and other eczema due to other chemical products Benign hypertension (CMS/HCC) Essential hypertension, benign DDD (degenerative disc disease), lumbar Degeneration of lumbar or lumbosacral intervertebral disc DDD (degenerative disc disease), lumbar Degeneration of lumbar or lumbosacral intervertebral disc documented [facility]* Diagnosis Type 2 diabetes mellitus with hyperglycemia, without long-term current use of insulin (CMS/HCC)- Primary Benign hypertension (CMS/HCC) Essential hypertension, benign Generalized anxiety disorder (CMS/HCC) Generalized anxiety disorder Degenerative cervical spinal stenosis Spinal stenosis in cervical region DDD (degenerative disc disease), lumbar Degeneration of lumbar or lumbosacral intervertebral disc Primary insomnia Persistent disorder of initiating or maintaining sleep Screening mammogram for breast cancer Type 2 diabetes mellitus with hyperglycemia, without long-term current use of insulin (CMS/HCC)- Primary Benign hypertension (CMS/HCC) Essential hypertension, benign Acquired hypothyroidism (CMS/HCC) Unspecified hypothyroidism Primary insomnia Persistent disorder of initiating or maintaining sleep DDD (degenerative disc disease), lumbar Degeneration of lumbar or lumbosacral intervertebral disc Degenerative cervical spinal stenosis Spinal stenosis in cervical region Encounter for long-term current use of medication Dyslipidemia (CMS/HCC) Other and unspecified hyperlipidemia Colon cancer screening Special screening for malignant neoplasms, colon Spigelian hernia with bowel obstruction- Primary Allergic contact dermatitis due to adhesives Contact dermatitis and other eczema due to other chemical products Benign hypertension (CMS/HCC) Essential hypertension, benign DDD (degenerative disc disease), lumbar Degeneration of lumbar or lumbosacral intervertebral disc Benign hypertension (CMS/HCC)- Primary Essential hypertension, benign documented [facility]* Diagnosis Type 2 diabetes mellitus with hyperglycemia, without long-term current use of insulin (CMS/HCC)- Primary Benign hypertension (CMS/HCC) Essential hypertension, benign Generalized anxiety disorder (CMS/HCC) Generalized anxiety disorder Degenerative cervical spinal stenosis Spinal stenosis in cervical region DDD (degenerative disc disease), lumbar Degeneration of lumbar or lumbosacral intervertebral disc Primary insomnia Persistent disorder of initiating or maintaining sleep Screening mammogram for breast cancer Type 2 diabetes mellitus with hyperglycemia, without long-term current use of insulin (CMS/HCC)- Primary Benign hypertension (CMS/HCC) Essential hypertension, benign Acquired hypothyroidism (CMS/HCC) Unspecified hypothyroidism Primary insomnia Persistent disorder of initiating or maintaining sleep DDD (degenerative disc disease), lumbar Degeneration of lumbar or lumbosacral intervertebral disc Degenerative cervical spinal stenosis Spinal stenosis in cervical region Encounter for long-term current use of medication Dyslipidemia (CMS/HCC) Other and unspecified hyperlipidemia Colon cancer screening Special screening for malignant neoplasms, colon Spigelian hernia with bowel obstruction- Primary Allergic contact dermatitis due to adhesives Contact dermatitis and other eczema due to other chemical products Benign hypertension (CMS/HCC) Essential hypertension, benign DDD (degenerative disc disease), lumbar Degeneration of lumbar or lumbosacral intervertebral disc Benign hypertension (CMS/HCC)- Primary Essential hypertension, benign Primary insomnia Persistent disorder of initiating or maintaining sleep documented in this encounter [facility]* Diagnosis Chronic pain of both knees- Primary Primary insomnia Persistent disorder of initiating or maintaining sleep DDD (degenerative disc disease), lumbar Degeneration of lumbar or lumbosacral intervertebral disc documented in this encounter [facility]* Diagnosis Type 2 diabetes mellitus with hyperglycemia, without long-term current use of insulin (CMS/HCC)- Primary Benign hypertension (CMS/HCC) Essential hypertension, benign Generalized anxiety disorder (CMS/HCC) Generalized anxiety disorder Degenerative cervical spinal stenosis Spinal stenosis in cervical region DDD (degenerative disc disease), lumbar Degeneration of lumbar or lumbosacral intervertebral disc Primary insomnia Persistent disorder of initiating or maintaining sleep Screening mammogram for breast cancer Type 2 diabetes mellitus with hyperglycemia, without long-term current use of insulin (CMS/HCC)- Primary Benign hypertension (CMS/HCC) Essential hypertension, benign Acquired hypothyroidism (CMS/HCC) Unspecified hypothyroidism Primary insomnia Persistent disorder of initiating or maintaining sleep DDD (degenerative disc disease), lumbar Degeneration of lumbar or lumbosacral intervertebral disc Degenerative cervical spinal stenosis Spinal stenosis in cervical region Encounter for long-term current use of medication Dyslipidemia (CMS/HCC) Other and unspecified hyperlipidemia Colon cancer screening Special screening for malignant neoplasms, colon Spigelian hernia with bowel obstruction- Primary Allergic contact dermatitis due to adhesives Contact dermatitis and other eczema due to other chemical products Benign hypertension (CMS/HCC) Essential hypertension, benign DDD (degenerative disc disease), lumbar Degeneration of lumbar or lumbosacral intervertebral disc Benign hypertension (CMS/HCC)- Primary Essential hypertension, benign SOB (shortness of breath)- Primary Shortness of breath Anxiety Anxiety state, unspecified Hypokalemia Hypopotassemia Allergic contact dermatitis due to adhesives Contact dermatitis and other eczema due to other chemical products DDD (degenerative disc disease), lumbar Degeneration of lumbar or lumbosacral intervertebral disc Gastroesophageal reflux disease without esophagitis Esophageal reflux Primary insomnia Persistent disorder of initiating or maintaining sleep Primary hypertension (CMS/HCC) Unspecified essential hypertension documented in this encounter [facility]* Diagnosis Type 2 diabetes mellitus with hyperglycemia, without long-term current use of insulin (CMS/HCC)- Primary Benign hypertension (CMS/HCC) Essential hypertension, benign Generalized anxiety disorder (CMS/HCC) Generalized anxiety disorder Degenerative cervical spinal stenosis Spinal stenosis in cervical region DDD (degenerative disc disease), lumbar Degeneration of lumbar or lumbosacral intervertebral disc Primary insomnia Persistent disorder of initiating or maintaining sleep Screening mammogram for breast cancer Type 2 diabetes mellitus with hyperglycemia, without long-term current use of insulin (CMS/HCC)- Primary Benign hypertension (CMS/HCC) Essential hypertension, benign Acquired hypothyroidism (CMS/HCC) Unspecified hypothyroidism Primary insomnia Persistent disorder of initiating or maintaining sleep DDD (degenerative disc disease), lumbar Degeneration of lumbar or lumbosacral intervertebral disc Degenerative cervical spinal stenosis Spinal stenosis in cervical region Encounter for long-term current use of medication Dyslipidemia (CMS/[facility]) Other and unspecified hyperlipidemia Colon cancer screening Special screening for malignant neoplasms, colon Spigelian hernia with bowel obstruction- Primary Allergic contact dermatitis due to adhesives Contact dermatitis and other eczema due to other chemical products Benign hypertension (CMS/HCC) Essential hypertension, benign DDD (degenerative disc disease), lumbar Degeneration of lumbar or lumbosacral intervertebral disc Benign hypertension (CMS/HCC)- Primary Essential hypertension, benign Type 2 diabetes mellitus with hyperglycemia, without long-term current use of insulin (CMS/HCC)- Primary Benign hypertension (CMS/HCC) Essential hypertension, benign Degeneration of intervertebral disc of lumbar region with discogenic back pain and lower extremity pain Degenerative cervical spinal stenosis Spinal stenosis in cervical region Generalized anxiety disorder (CMS/HCC) Generalized anxiety disorder Primary insomnia Persistent disorder of initiating or maintaining sleep Breast cancer screening by mammogram Colon cancer screening Special screening for malignant neoplasms, colon documented in this [facility]* Diagnosis Type 2 diabetes mellitus with hyperglycemia, without long-term current use of insulin (CMS/HCC)- Primary Benign hypertension (CMS/HCC) Essential hypertension, benign Generalized anxiety disorder (CMS/HCC) Generalized anxiety disorder Degenerative cervical spinal stenosis Spinal stenosis in cervical region DDD (degenerative disc disease), lumbar Degeneration of lumbar or lumbosacral intervertebral disc Primary insomnia Persistent disorder of initiating or maintaining sleep Screening mammogram for breast cancer Type 2 diabetes mellitus with hyperglycemia, without long-term current use of insulin (CMS/HCC)- Primary Benign hypertension (CMS/HCC) Essential hypertension, benign Acquired hypothyroidism (CMS/HCC) Unspecified hypothyroidism Primary insomnia Persistent disorder of initiating or maintaining sleep DDD (degenerative disc disease), lumbar Degeneration of lumbar or lumbosacral intervertebral disc Degenerative cervical spinal stenosis Spinal stenosis in cervical region Encounter for long-term current use of medication Dyslipidemia (CMS/HCC) Other and unspecified hyperlipidemia Colon cancer screening Special screening for malignant neoplasms, colon Spigelian hernia with bowel obstruction- Primary Allergic contact dermatitis due to adhesives Contact dermatitis and other eczema due to other chemical products Benign hypertension (CMS/HCC) Essential hypertension, benign DDD (degenerative disc disease), lumbar Degeneration of lumbar or lumbosacral intervertebral disc Benign hypertension (CMS/HCC)- Primary Essential hypertension, benign Type 2 diabetes mellitus with hyperglycemia, without long-term current use of insulin (CMS/HCC)- Primary Benign hypertension (CMS/HCC) Essential hypertension, benign Degeneration of intervertebral disc of lumbar region with discogenic back pain and lower extremity pain Degenerative cervical spinal stenosis Spinal stenosis in cervical region Generalized anxiety disorder (CMS/HCC) Generalized anxiety disorder Primary insomnia Persistent disorder of initiating or maintaining sleep Breast cancer screening by mammogram Colon cancer screening Special screening for malignant neoplasms, colon DDD (degenerative disc disease), lumbar Degeneration of lumbar or lumbosacral intervertebral disc Gastroesophageal reflux disease without esophagitis Esophageal reflux Depression, unspecified depression type (CMS/HCC) Hypokalemia Hypopotassemia Dyslipidemia (CMS/HCC) Other and unspecified hyperlipidemia Primary insomnia Persistent disorder of initiating or maintaining sleep Primary hypertension (CMS/HCC) Unspecified essential hypertension documented in [facility] encounter [facility]* Diagnosis Type 2 diabetes mellitus with hyperglycemia, without long-term current use of insulin (CMS/HCC)- Primary Benign hypertension (CMS/HCC) Essential hypertension, benign Generalized anxiety disorder (CMS/HCC) Generalized anxiety disorder Degenerative cervical spinal stenosis Spinal stenosis in cervical region DDD (degenerative disc disease), lumbar Degeneration of lumbar or lumbosacral intervertebral disc Primary insomnia Persistent disorder of initiating or maintaining sleep Screening mammogram for breast cancer Type 2 diabetes mellitus with hyperglycemia, without long-term current use of insulin (CMS/HCC)- Primary Benign hypertension (CMS/HCC) Essential hypertension, benign Acquired hypothyroidism (CMS/HCC) Unspecified hypothyroidism Primary insomnia Persistent disorder of initiating or maintaining sleep DDD (degenerative disc disease), lumbar Degeneration of lumbar or lumbosacral intervertebral disc Degenerative cervical spinal stenosis Spinal stenosis in cervical region Encounter for long-term current use of medication Dyslipidemia (CMS/HCC) Other and unspecified hyperlipidemia Colon cancer screening Special screening for malignant neoplasms, colon Spigelian hernia with bowel obstruction- Primary Allergic contact dermatitis due to adhesives Contact dermatitis and other eczema due to other chemical products Benign hypertension (CMS/HCC) Essential hypertension, benign DDD (degenerative disc disease), lumbar Degeneration of lumbar or lumbosacral intervertebral disc Benign hypertension (CMS/HCC)- Primary Essential hypertension, benign Type 2 diabetes mellitus with hyperglycemia, without long-term current use of insulin (CMS/HCC)- Primary Benign hypertension (CMS/HCC) Essential hypertension, benign Degeneration of intervertebral disc of lumbar region with discogenic back pain and lower extremity pain Degenerative cervical spinal stenosis Spinal stenosis in cervical region Generalized anxiety disorder (CMS/HCC) Generalized anxiety disorder Primary insomnia Persistent disorder of initiating or maintaining sleep Breast cancer screening by mammogram Colon cancer screening Special screening for malignant neoplasms, colon Primary insomnia Persistent disorder of initiating or maintaining sleep documented in this encounter [facility] Summary Purpose Family History No Family History Records FoundNo Family History Records FoundNo Family History Records FoundNo Family History Records Found Advance Directives No Advanced Directives Records FoundNo Advanced Directives Records FoundNo Advanced Directives Records FoundNo Advanced Directives Records Found Additional Source Comments INFORMATION SOURCE (unrecogn ized section and content) DATE CREATED AUTHOR 10/09/2022 [facility] DATE CREATED AUTHOR AUTHOR'S ORGANIZ ATION 03/11/2024 [facility] EPIC DATE CREATED AUTHOR AUTHOR'S ORGANIZ ATION 04/16/2024 [facility] DATE CREATED AUTHOR AUTHOR'S ORGANIZ ATION 05/31/2024 [facility] Reason for Visit (unrecogniz ed section and content) Reason Onset Date Comments Med Refill 06/14/2023 Reason Comments Follow-up [facility] f/up surgery Reason Comments Follow-up Blood pressure high Reason Comments Med Refill Reason Onset Date Comments Med Refill 05/01/2024 Reason Comments Follow-up Right side painBalan ce issues Reason Comments New Med Request Reason Onset Date Comments Med Refill 05/30/2024 Care Teams (unrecognized sec tion and content) Operations Accountant Relationship Specialty Start Date End Date Mikey Singh MD PCP - General Family Medicine 11/13/22 Operations Accountant Relationship Specialty Start Date End Date Mikey Singh MD PCP - General Family Medicine 11/13/22 Operations Accountant Relationship Specialty Start Date End Date Mikey Singh MD [address] [place] [id number] PCP - General Family Medicine 11/25/23 Operations Accountant Relationship Specialty Start Date End Date Mikey Singh MD [address] [place] [phone] PCP - General Family Medicine 11/25/23 Operations Accountant Relationship Specialty Start Date End Date Mikey Singh MD [address] [place] [phone] PCP - General Family Medicine 11/25/23 Operations Accountant Relationship Specialty Start Date End Date Mikey Singh MD [address] [place] [phone] PCP - General Family Medicine 11/25/23 Operations Accountant Relationship Specialty Start Date End Date Mikey Singh MD [address] [place] [address] PCP - General Family Medicine 11/25/23 Operations Accountant Relationship Specialty Start Date End Date Mikey Singh MD [address] [place] [address] PCP - General Family Medicine 11/25/23 Operations Accountant Relationship Specialty Start Date End Date Mikey Singh MD [address] [place] [phone] [facility] 11/25/23 Operations Accountant Relationship Specialty Start Date End Date Mikey Singh MD [address] [place] [phone] [facility] 11/25/23 Operations Accountant Relationship Specialty Start Date End Date Mikey Singh MD [address] [place] [phone] [facility] 11/25/23 Operations Accountant Relationship Specialty Start Date End Date Mikey Singh MD [address] [place] [phone] [facility] 11/25/23 Operations Accountant Relationship Specialty Start Date End Date Mikey Singh MD [address] [place] [phone] [facility] 11/25/23 Operations Accountant Relationship Specialty Start Date End Date Mikey Singh MD [address] [place] [phone] [facility] 11/25/23 FOR RECORDS PERTAINING TO PATIENTS WHO ARE [...] BE BASED ON THE PRIMARY CLINICAL RECORDS. [facility] provides no warranty or guarantee of the accuracy or completeness of information in this document.
--- NOTE | 2024-06-05 09:17 | MM_ITS ---
Patient Name: FATUMA OLIVAS MR#: [id number] : 1955 Exam Date: 06/05/2024 Ordering Doctor: DR ALDO SINGH . RADIOLOGY REPORT PROCEDURE: MM TOMOSYNTHESIS SCREENING BI COMPARISON: MM TOMOSYNTHESIS SCREENING BI, 05/12/2023. MG MAMM SCREEN 3D SHERINE CAD, 12/09/2020. MG MAMM SCREEN 3D SHERINE CAD, 06/21/2019. MAMMO SHERINE SCREEN, 05/18/2018. INDICATIONS: Screening Calculator Name NCI Breast Cancer Risk Assessment Tool 5 Year Breast Cancer Risk 1.70% Lifetime Breast Cancer Risk 5.50% Personal Breast Cancer No Personal Ovarian Cancer No Treatments None Family Cancers Mother with lung cancer at age 74; Father with lung cancer at age 45. LOCATION: [facility] BREAST COMPOSITION: There are scattered areas of fibroglandular density. FINDINGS: DIAGNOSTIC CATEGORY 1--NEGATIVE. RIGHT BREAST: No significant suspicious finding. No significant change has occurred. LEFT BREAST: No significant suspicious finding. No significant change has occurred. RECOMMENDATIONS: ROUTINE MAMMOGRAM AND CLINICAL EVALUATION IN 12 MONTHS. PLEASE NOTE: A NORMAL MAMMOGRAM DOES NOT EXCLUDE THE POSSIBILITY OF BREAST CANCER. A CLINICALLY SUSPICIOUS PALPABLE LUMP SHOULD BE BIOPSIED. Dictated by: Cesar Joshua M.D. on 06/06/2024 at 15:44 Approved by: Cesar Joshua M.D. on 06/06/2024 at 16:07
[2024-06-05 10:01] LABS: Estimated Average Glucose 100 mg/dL; Glycohemoglobin A1C 5.1 % (4.5-6.2)
== END 2024-06-05 09:09 | disposition home or self-care (01) ==
LOC: MAMMO 09:08
PROVIDERS: PCP Family Medicine; Visit Provider Family Medicine
DX: Z12.31 Encounter for screening mammogram for malignant neoplasm of breast (principal); Z80.1 Family history of malignant neoplasm of trachea, bronchus and lung; E11.65 Type 2 diabetes mellitus with hyperglycemia
CPT/HCPCS: 36415; 77063; 77067; 83036

== ENCOUNTER 2024-06-20 11:16 | Outpatient (OUT) | payer MEDICARE, SELFPAY ==
--- OUTSIDE RECORDS SUMMARY | 2024-06-20 11:35 | XMS_ITS | CCD ---
Author Organization [facility] Inform ion Partnership [facility] Care Team Providers Care Rail Director Name Role Phone SAMANTHA, DR MIKEY Keith Attending Unavailable NADERER, DR MIKEY Keith Admitting Unavailable NADERER, DR MIKEY Keith Primary Care Unavailable NADEREDorys, DR MIKEY Keith Attending Unavailable NADERER, DR MIKEY Keith Admitting Unavailable WEST, DR SUNNY Belle Consulting Unavailable NADERER, DR MIKEY Keith Primary Care Unavailable NADERER, DR MIKEY Keith Consulting Unavailable NADERER, DR MIKEY Keith Consulting Unavailable NADEREDorys, DR MIKEY Keith Attending Unavailable NADERER, DR MIKEY Keith Admitting Unavailable NADERER, DR MIKEY Keith Primary Care Unavailable NEFCYGUMARO Consulting Unavailable Mikey Singh MD Primary Care Provider [phone] Mikey Singh MD Primary Care Provider [phone] MIKEY SINGH Attending Unavailable NADERER, MIKEY Attending Unavailable DOUGCLARA DOWD Attending Unavailable NADERER, MIKEY Attending Unavailable NADERER, MIKEY Attending Unavailable GWEN WILLIS Referring Unavailable MALAGON-IRINAECSHELLEY Admitting Unavailabl e MALAGON-SHELLEY BABCOCK Attending Unavailabl e GAIL, DAVE Referring Unavailable GAIL, DAVE Referring Unavailable LORENA, ISABEL Attending Unavailable MIKEY SINGH Primary Care Physician Vee Arcos Unavailable Unavailable Douglas NGUYEN Attending Unavailable MIKEY SINGH Referring Unavailable Allergies Allergy Classification Reported Allergen(s) Allergy Type Date of Onset Reaction(s) Facility (4 sources) Amino Acids; Translations: [LISINOPRIL] Drug Allergy 5 [facility] Repository (2 sources) Penicillins; Translations: [PENICILLINS] Drug allergy (disorder) 5 [facility] Repository (3 sources) Verapamil; Translations: [VERAPAMIL] Drug Allergy 5 [facility] Repository (20 sources) Angiotensin-con verting enzyme inhibitor agent; Translations: [GURINDER INHIBITORS] Drug Allergy 4 Unknown [facility] Healthcare (20 sources) Influenza Vaccines Drug Allergy 4 Unknown [facility] Healthcare (20 sources) Lisinopril Propensity to adverse reactions 4 Cough [facility] Healthcare (20 sources) Nortriptyline; Translations: [nortriptyline] Drug Allergy 4 Unknown [facility] Healthcare (20 sources) Penicillins Drug Allergy 4 Unknown [facility] Healthcare (20 sources) Verapamil Drug Allergy 4 Other [facility] Healthcare (16 sources) Wound Dressing Adhesive Propensity to adverse reactions 4 [facility] Healthcare (2 sources) nickel; Translations: [NICKEL] Drug Allergy 4 Eruption of skin (disorder) [facility] Repository (1 source) ADHESIVE TAPE-SILICONES; Translations: [ADHESIVE TAPE-SILICONES] Propensity to adverse reactions to drug (disorder) 4 [facility] Repository (1 source) INFLUENZA A (H5N1) VIRUS VACCINE MONOVAL (18 YR +); Translations: [INFLUENZA A (H5N1) VIRUS VACCINE MONOVAL (18 YR +)] Propensity to adverse reactions to drug (disorder) 4 [facility] Repository (1 source) Lisinopril; Translations: [lisinopril] Drug Allergy Cough (finding) [facility] (2 sources) Penicillin; Translations: [penicillin] Drug Allergy unknown [facility] (2 sources) Influenza virus antigen (substance); Translations: [flu vaccines] Drug allergy unknown [facility] (1 source) Adhesive bandage; Translations: [Adhesive Bandage] Propensity to adverse reactions (disorder) [facility] Repository (1 source) Nortriptyline; Translations: [Pamelor] Drug Allergy [facility] Repository Medications Current Medications Medication Drug Class(es) Dates Sig (Normalized) Sig (Original) Albuterol (20 sources) beta2-Adrenergic Agonist Start: 06-01-2024 take 2 puff(s) by inhalation every six hours Albuterol (Eqv-ProAir HFA) 2 puff(s), Inhalation, q6hr Shortness of breath or wheezing, Refill(s) 0 Start Date: 06/01/24 Status: Ordered Start: 05-01-2024 End: 05-01-2024 take 2 puff(s) by inhalation every four hours for wheezing albuterol HFA 90 mcg/act inhaler Indications: SOB (shortness of breath) Inhale 2 puffs every 4 (four) hours if needed for wheezing 18 g 3 05/01/2024 Active busPIRone hydrochloride 30 mg oral tablet (20 sources) Start: 04-29-2023 End: 05-01-2024 take 1 tablet by mouth twice daily busPIRone 30 mg oral tablet 30 mg = 1 tab(s), Oral, BID, Refills(s) 0 Start Date: 06/01/24 Status: Ordered carvedilol 25 mg oral tablet (20 sources) alpha-Adrenergi c Dang, beta-Adrenergic Dang Start: 04-24-2024 End: 05-29-2024 take 1 tablet by mouth twice daily carvedilol 25 mg Tab 25 mg = 1 tab(s), Oral, BID, Refills(s) 0 Start Date: 06/01/24 Status: Ordered Start: 04-29-2023 [facility] carvedilol (Coreg) 25 MG tablet Indications: Primary hypertension (CMS/HCC) Take 1 tablet by mouth twice daily 180 tablet 3 04/29/2023 Active celecoxib 200 mg oral capsule (20 sources) Nonsteroidal Anti-inflammatory Drug Start: 04-18-2024 End: 05-29-2024 take 1 capsule by mouth twice daily CeleBREX 200 mg Cap 200 mg = 1 cap(s), Oral, BID, Refills(s) 0 Start Date: 06/01/24 Status: Ordered Start: 04-29-2023 take 1 capsule by mo [facility] twice daily celecoxib (CeleBREX) 200 MG capsule [...] Daily 90 tablet 3 05/29/2024 Active Start: 01-01-2010 take 1 tablet by ashley th once daily estradiol (Estrace) 2 MG tablet Indications: Gastroesophageal reflux disease without esophagitis Take 1 tablet by mouth once daily 90 tablet 01/26/2024 Active FLUoxetine 20 mg oral capsule (20 sources) Serotonin Reuptake Inhibitor Start: 04-18-2024 End: 05-29-2024 take 1 capsule by mouth once daily FLUoxetine 20 mg Cap 20 mg = 1 cap(s), Oral, Daily, Refills(s) 0 Start Date: 06/01/24 Status: Ordered Start: 04-29-2023 take 1 capsule by mo [facility] once daily FLUoxetine (PROzac) 20 MG capsule [...] (20 sources) Angiotensin 2 Receptor Dang Start: 05-22-2024 End: 05-26-2024 take 1 tablet by mouth twice daily losartan 50 mg Tab 50 mg = 1 tab(s), Oral, BID, Refills(s) 0 Start Date: 06/01/24 Status: Ordered Start: 05-01-2024 take 1 tablet by ashley [...] Active meclizine hydrochloride 25 mg oral tablet (19 sources) Antiemetic Start: 12-15-2023 take 1 tablet by mouth four times daily as needed for dizziness meclizine (Antivert) 25 MG tablet Indications: Vertigo Take 1 tablet (25 mg) by mouth 4 (four) times a day as needed for dizziness 30 tablet 2 12/15/2023 Active pantoprazole 40 mg delayed release oral tablet (20 sources) Proton Pump Inhibitor Start: 04-18-2024 End: 05-01-2024 take 1 tablet by mouth once daily Protonix 40 mg Tab-DR 40 mg = 1 tab(s), Oral, Daily, Refills(s) 0 Start Date: 06/01/24 Status: Ordered Start: 01-26-2024 take 1 tablet by ashley th once daily pantoprazole (ProtoNix) 40 MG EC tablet Indications: Gastroesophageal reflux disease without esophagitis Take 1 tablet by mouth once daily 90 tablet 01/26/2024 Active Start: 02-03-2023 take 1 tablet by ashley th in the morning pantoprazole (ProtoNix) 40 MG EC tablet Take 1 tablet by mouth in the morning. 02/03/2023 Active rosuvastatin calcium 20 mg oral tablet (20 sources) HMG-CoA Reductase Inhibitor Start: 04-18-2024 End: 05-29-2024 take 1 tablet by mouth once daily rosuvastatin 20 mg Tab 20 mg = 1 tab(s), Oral, Daily, Refills(s) 0 Start Date: 06/01/24 Status: Ordered Start: 01-26-2024 take 1 tablet by ashley th at bedtime rosuvastatin (Crestor) 20 MG tablet Indications: Dyslipidemia (CMS/HCC) TAKE 1 TABLET BY MOUTH AT BEDTIME 90 tablet 01/26/2024 Active Start: 02-03-2023 take 1 tablet by ashley th at bedtime rosuvastatin (Crestor) 20 MG tablet Take 1 tablet by mouth at bedtime 02/03/2023 Active traMADol hydrochloride 50 mg oral tablet (20 sources) Opioid Agonist Start: 12-28-2023 End: 08-27-2024 [...] take 1 tablet by mouth once daily at bedtime traZODONE 100 mg Tab 100 mg = 1 tab(s), Oral, Once a day (at bedtime), Refills(s) 0 Start Date: 06/01/24 Status: Ordered Start: 04-29-2023 take 1 tablet by ashley th at bedtime traZODone (Desyrel) 100 MG tablet Indications: Primary insomnia TAKE 1 TABLET BY MOUTH AT BEDTIME 90 tablet 3 04/29/2023 Active triamcinolone acetonide 5 mg/ml topical cream (17 sources) Corticosteroid Start: 02-01-2024 End: 05-01-2024 triamcinolone (Kenalog) 0.5 % cream Indications: Allergic contact dermatitis due to adhesives Apply topically 3 (three) times a day 60 g 1 05/01/2024 Active zolpidem tartrate 10 mg oral tablet (20 sources) gamma-Aminobutyric Acid-ergic Agonist Start: 06-13-2024 zolpidem (Ambien) 10 MG tablet Indications: Primary insomnia TAKE 1 TABLET AT BEDTIME NEEDED FOR SLEEP 90 tablet 06/13/2024 Active Start: 04-29-2023 End: 08-28-2024 zolpidem (Ambien) 10 MG tabl et Indications: Primary insomnia Take 1 tablet (10 mg) by mouth as needed at bedtime for sleep 90 tablet 05/30/2024 06/13/2024 Discontinued Completed/Discontinued Medications Medication Drug Class(es) Dates Sig (Normalized) Sig (Original) potassium chloride 20 meq extended release oral tablet (20 sources) Start: 06-07-2024 take 1 tablet by mouth twice daily potassium chloride 20 mEq ER Tab 20 mEq = 1 tab(s), Oral, BID, Refills(s) 0 Start Date: 06/07/24 Status: Ordered Start: 06-14-2023 End: 05-29-2024 take 1 tablet [...] before bedtime. 0 11/02/2022 06/14/2023 Discontinued (Reorder) Problems Active Problems Problem Classification [...] Translations: [Benign hypertension] Onset: 09-17-2022 Chronic Glaucoma (20 sources) Primary open angle glaucoma; Translations: [Primary open-angle glaucoma, unspecified eye, stage unspecified] Onset: 12-13-2013 05-10-2023 Chronic Miscellaneous mental health disorders (20 sources) Primary insomnia; Translations: [Primary insomnia] Onset: 05-10-2023 06-14-2023 Chronic Mood disorders (1 source) Depressive disorder; Translations: [Depression, unspecified depression type (CMS/HCC)] 05-29-2024 Chronic Other aftercare (1 source) Other jail (current) drug therapy; Translations: [OTH CORRECTION CURRENT DRUG THERAPY] Onset: 09-19-2022 Episodic Other aftercare (5 sources) Patient encounter status; Translations: [Other termite helper (current) drug therapy] Onset: 11-25-2023 11-25-2023 Episodic Other and unspecified benign neoplasm (2 sources) History of polyp of colon; Translations: [Personal history of adenomatous and serrated colon polyps] Onset: 06-07-2024 Episodic Other lower respiratory disease (1 source) Dyspnea; Translations: [Shortness of breath] 05-01-2024 Episodic Other non-traumatic joint disorders (1 source) Pain in right wrist; Translations: [PAIN IN RIGHT WRIST] Onset: 09-19-2022 Episodic Other nutritional; endocrine; and metabolic disorders (1 source) Body mass index 30+ - obesity 06-07-2024 Chronic Other nutritional; endocrine; and metabolic disorders (1 source) Obesity caused by energy imbalance 06-07-2024 Chronic Spondylosis; intervertebral disc disorders; other back problems (20 sources) Other cervical disc degeneration, unspecified cervical region; Translations: [Other intervertebral disc degeneration, lumbar region] Onset: 09-19-2022 Chronic Thyroid disorders (20 sources) Hypothyroidism, unspecified; Translations: [Acquired hypothyroidism] Onset: 09-19-2022 05-10-2023 Chronic Unclassified (2 sources) Post-op; Translations: [Post-op] Onset: 02-07-2024 Unclassified (3 sources) Patient encounter status 05-26-2024 Past or Other Problems Problem Classification Problem Date Documented Da te Episodic/Chronic Abdominal hernia (20 sources) Obstructed Spigelian hernia; Translations: [Other and unspecified ventral hernia with obstruction, without gangrene] Onset: 01-27-2024 Resolved: 05-26-2024 02-01-2024 Episodic Allergic reactions (19 sources) Allergic contact dermatitis due to adhesive; Translations: [Allergic contact dermatitis due to adhesives] Onset: 02-01-2024 Resolved: 05-26-2024 02-01-2024 Episodic Conditions associated with dizziness or vertigo (20 sources) Vertigo; Translations: [Dizziness and giddiness] Onset: 05-10-2023 05-10-2023 Episodic Fluid and electrolyte disorders (20 sources) Hypokalemia; Translations: [Hypokalemia] Onset: 05-10-2023 06-14-2023 Episodic Other aftercare (18 sources) Long-term current use of drug therapy; Translations: [Other termite helper (current) drug therapy] Onset: 11-25-2023 11-25-2023 Episodic Other non-traumatic joint disorders (20 sources) Pain in right knee; Translations: [Pain in joint, lower leg] Onset: 05-10-2023 05-10-2023 Episodic Spondylosis; intervertebral disc disorders; other back problems (20 sources) Degenerative cervical spinal stenosis; Translations: [Spinal stenosis, cervical region] Onset: 05-10-2023 05-10-2023 Episodic Results Test Name Value Interpretation Reference Range Facility Ambulatory Visit Summaryon 0 06-07-2024 Ambulatory Visit Summary Ambulatory Visit Summary FATUMA NANCE :1955 Visit Date:06/07/2024 Ambulatory Visit Instructions Your Diagnosis Screening for malignant neoplasm of colon Your Care Team Attending Physician - PATRICK MORRISON, Douglas Saul Primary Care Physician - SAMANTHA MORRISON, MIKEY Referring Physician - MIKEY SINGH MD This Is Your Medications List potassium chloride (potassium chloride 20 mEq ER Tab) Contact prescribing physician if questions or concerns albuterol (Albuterol (Eqv-ProAir HFA)) busPIRone (busPIRone 30 mg oral tablet) carvedilol (carvedilol 25 mg Tab) celecoxib (CeleBREX 200 mg Cap) estradiol (Estrace 2 mg Tab) fluoxetine (FLUoxetine 20 mg Cap) losartan (losartan 50 mg Tab) pantoprazole (Protonix 40 mg Tab-DR) rosuvastatin (rosuvastatin 20 mg Tab) tramadol (traMADOL 50 mg Tab) trazodone (traZODONE 100 mg Tab) zolpidem (Ambien 10 mg Tab) Procedures Performed knee arthroscopy (2001), Arthroplasty of right knee, Repair of spigelian hernia, Salpingo-oophorectomy, Tonsillectomy, VH - Vaginal hysterectomy. Discharge Vitals Heart Rate (Peripheral) 72 Respiratory Rate 16 Blood Pressure 122/82 Height 160 cm Height 63 in Weight 83.0 kg Weight 182.983 lb BMI 32.42 Medications What How Much When Instructions Unchanged potassium chloride (potassium chloride 20 mEq ER Tab) 1 Tablets By Mouth 2 times a day Unchanged albuterol (Albuterol (Eqv-ProAir HFA)) 2 Puffs Inhalation Every 6 hours as needed for Shortness of breath or wheezing Contact prescribing physician if questions or concerns Unchanged busPIRone (busPIRone 30 mg oral tablet) 1 Tablets By Mouth 2 times a day Contact prescribing physician if questions or concerns Unchanged carvedilol (carvedilol 25 mg Tab) 1 Tablets By Mouth 2 times a day Contact prescribing physician if questions or concerns Unchanged celecoxib (CeleBREX 200 mg Cap) 1 Capsules By Mouth 2 times a day Contact prescribing physician if questions or concerns Unchanged estradiol (Estrace 2 mg Tab) 1 Tablets By Mouth Every day Contact prescribing physician if questions or concerns Unchanged fluoxetine (FLUoxetine 20 mg Cap) 1 Capsules By Mouth Every day Contact prescribing physician if questions or concerns Unchanged losartan (losartan 50 mg Tab) 1 Tablets By Mouth 2 times a day Contact prescribing physician if questions or concerns Unchanged pantoprazole (Protonix 40 mg Tab-DR) 1 Tablets By Mouth Every day Contact prescribing physician if questions or concerns Unchanged rosuvastatin (rosuvastatin 20 mg Tab) 1 Tablets By Mouth Every day Contact prescribing physician if questions or concerns Unchanged tramadol (traMADOL 50 mg Tab) as directed Contact prescribing physician if questions or concerns Unchanged trazodone (traZODONE 100 mg Tab) 1 Tablets By Mouth Once a day (at bedtime) Contact prescribing physician if questions or concerns Unchanged zolpidem (Ambien 10 mg Tab) 1 Tablets By Mouth Once a day (at bedtime) as needed for for sleep Contact prescribing physician if questions or concerns Allergies Nickel (Rash) Pamelor (unknown) flu vaccines (unknown) lisinopril (Cough) penicillin (unknown) Problems Ongoing - Any problem that you are currently receiving treatment for. Benign hypertension BMI 32.0-32.9,adult Degeneration of lumbar intervertebral disc Dyslipidemia Gastroesophageal reflux disease Generalized anxiety disorder Obesity due to excess calories Primary open angle glaucoma Screening for malignant neoplasm of colon Type 2 diabetes mellitus Patient Survey You may receive a survey via text or e-mail asking about your office visit. Please share your experience with us by completing your survey. We appreciate your feedback and thank you for choosing us for your care. Normal [facility] MM TOMOSYNTHESIS SCREENING B Ion 06-06-2024 [place] [address] Mammography Report Signed Patient: FATUMA NANCE MR#: [id number] : 1955 Acct:[id number] Age/Sex: 68 / F ADM Date: 06/05/24 Loc: MAMMO Attending Dr: Mikey Singh M.D. Ordering Physician: Mikey Singh M.D. Results: Date of Service: 06/05/24 Follow Up: Procedure(s): MM tomosynthesis screening BI Accession Number(s): [id number] cc: Mikey Singh M.D. Patient Name: FATUMA NANCE MR#: [id number] : 1955 Exam Date: 06/05/2024 Ordering Doctor: DR MIKEY SINGH . RADIOLOGY REPORT PROCEDURE: MM TOMOSYNTHESIS SCREENING BI COMPARISON: MM TOMOSYNTHESIS SCREENING BI, 05/12/2023. MG MAMM SCREEN 3D SHERINE CAD, 12/09/2020. MG MAMM SCREEN 3D SHERINE CAD, 06/21/2019. MAMMO SHERINE SCREEN, 05/18/2018. INDICATIONS: Screening Calculator Name NCI Breast Cancer Risk Assessment Tool 5 Year Breast Cancer Risk 1.70% Lifetime Breast Cancer Risk 5.50% Personal Breast Cancer No Personal Ovarian Cancer No Treatments None Family Cancers Mother with lung cancer at age 74; Father with lung cancer at age 45. LOCATION: [facility] BREAST COMPOSITION: There are scattered areas of fibroglandular density. FINDINGS: DIAGNOSTIC CATEGORY 1--NEGATIVE. RIGHT BREAST: No significant suspicious finding. No significant change has occurred. LEFT BREAST: No significant suspicious finding. No significant change has occurred. RECOMMENDATIONS: ROUTINE MAMMOGRAM AND CLINICAL EVALUATION IN 12 MONTHS. PLEASE NOTE: A NORMAL MAMMOGRAM DOES NOT EXCLUDE THE POSSIBILITY OF BREAST CANCER. A CLINICALLY SUSPICIOUS PALPABLE LUMP SHOULD BE BIOPSIED. Dictated by: Cesar Joshua M.D. on 06/06/2024 at 15:44 Approved by: Cesar Joshua M.D. on 06/06/2024 at 16:07 Dictated By: Cesar Joshua M.D. Signed By: 06/06/24 1608 DD/ 1607 TD/TT: Senior Product Development Scientist: [facility] Radiology, Radiologist, MD - 06/06/2024 [place] [address] Mammography Report Signed Patient: FATUMA NANCE MR#: [id number] : 1955 Acct:[id number] Age/Sex: 68 / F ADM Date: 06/05/24 Loc: MAMMO Attending Dr: Mikey Singh M.D. Ordering Physician: Mikey Singh M.D. Results: Date of Service: 06/05/24 Follow Up: Procedure(s): MM tomosynthesis screening BI Accession Number(s): [id number] cc: Mikey Singh M.D. Patient Name: FATUMA NANCE MR#: [id number] : 1955 Exam Date: 06/05/2024 Ordering Doctor: DR MIKEY SINGH . RADIOLOGY REPORT PROCEDURE: MM TOMOSYNTHESIS SCREENING BI COMPARISON: MM TOMOSYNTHESIS SCREENING BI, 05/12/2023. MG MAMM SCREEN 3D SHERINE CAD, 12/09/2020. MG MAMM SCREEN 3D SHERINE CAD, 06/21/2019. MAMMO SHERINE SCREEN, 05/18/2018. INDICATIONS: Screening Calculator Name NCI Breast Cancer Risk Assessment Tool 5 Year Breast Cancer Risk 1.70% Lifetime Breast Cancer Risk 5.50% Personal Breast Cancer No Personal Ovarian Cancer No Treatments None Family Cancers Mother with lung cancer at age 74; Father with lung cancer at age 45. LOCATION: [facility] BREAST COMPOSITION: There are scattered areas of fibroglandular density. FINDINGS: DIAGNOSTIC CATEGORY 1--NEGATIVE. RIGHT BREAST: No significant suspicious finding. No significant change has occurred. LEFT BREAST: No significant suspicious finding. No significant change has occurred. RECOMMENDATIONS: ROUTINE MAMMOGRAM AND CLINICAL EVALUATION IN 12 MONTHS. PLEASE NOTE: A NORMAL MAMMOGRAM DOES NOT EXCLUDE THE POSSIBILITY OF BREAST CANCER. A CLINICALLY SUSPICIOUS PALPABLE LUMP SHOULD BE BIOPSIED. Dictated by: Cesar Joshua M.D. on 06/06/2024 at 15:44 Approved by: Cesar Joshua M.D. on 06/06/2024 at 16:07 Dictated By: Cesar Joshua M.D. Signed By: 06/06/24 1608 DD/ 1607 TD/TT: Senior Product Development Scientist: [facility] Radiology Study observation (narrative) [facility] MM TOMOSYNTHESIS SCREENING B IOrdered By: Radiologist Radiology on 06-06-2024 [facility] Work Phone: MLR HEMOGLOBIN A1Con 025 Glucose [Mass/Vol] 100 mg/dL [facility] HbA1c (Bld) [Mass fraction] 5.1 % 4.5 - 6.2 % [facility] Comment on above: ADA RECOMMENDED LIMI T 4.0 - 6.0 ADA THERAPEUTIC TARGET < 7.0 ACTION SUGGESTED > 7.0 [facility] 29on 02-07-2024 29 Addended by: ISABEL CARRILLO on: 03/01/2024 09:53 AM Modules accepted: Level of Service Normal [facility] Office Visiton 02-07-2024 Follow-up visit [id number] Fatuma Nance 1955 F Date Provider Department Center 02/07/2024 768-ISABEL CARRILLO [facility] SURG [place] No family history on file Level of Service:12854 [place] OFFICE/OUTPATIENT ESTABLISHED SF MDM 10 MIN Reason for Visit and Comments: Post-op [483] - s/p lap repair of Spegelian hernia 01/26 Normal [facility] URINE CULTURE, ROUTINEon Bacteria identified Cx Nom (U) Urine Culture, Routine [facility] Bacteria identified Cx Nom (U) Mixed urogenital chastity [facility] Bacteria identified Cx Nom (U) 10,000-25,000 colony forming units per mL [facility] Bacteria identified Cx Nom (U) Performed at: [facility] Bacteria identified Cx Nom (U) [address], [place] [id number] [facility] Bacteria identified Cx Nom (U) Tax Professional: Juventino Mccullough PhD, Phone: [phone] [facility] 30on 01-28-2024 30 Daily Case Managemen t Update Multidisciplinary rounds have been completed. Barriers to Discharge: Patient is medically ready for discharge at this time. AVS has been completed. Daughter to provider transportation to home. Message sent for follow up appointment. No further OTM needs at this time. [facility] will continue to follow patient and assist with any further discharge related needs. Diet: Dietary Orders (From admission, onward) Start Ordered 01/28/24 143 Regular Diet Diet effective now Question: Room Service? Answer: Yes 01/28/24 143 Physician Expected Discharge Date: 01/28/2024 Discharge Delays: PT Six Click Score: 22 OT Six Click Score: PT Recommendations: OT Recommendations: Does patient understand post acute plan of care? Yes Is expected discharge disposition appropriate for patient?: Yes New Consults: Normal [facility] 30 The patient is Moderately Stable [...] and maintained or improved Outcome: Progressing Normal [facility] DSon 01-28-2024 DS Admission Admitted 01/27/2024 [...] Medications These medications were sent to The [facility] - [place], [place] - [address] [place] [address] [place] [address], [facility] [address] ondansetron ODT 4 mg disintegrating tablet Activity [...] Glucose, Urine Negative Bilirubin, Urine Negative Specific [place], Urine 1.024 (*) Ketones, Urine 20 (*) [...] for panel (more content not included)... Normal [facility] NURSNOTEon 01-28-2024 NURSNOTE Patient report given via phone to SABINE PIERCE Normal [facility] APTTon 01-27-2024 ACTIVATED PARTIAL THROMBOPLASTIN TIME IN PPP BY COAGULATION ASSAY 24.9 Seconds Low 25.0-35.0 [facility] Comment on above: Result Comment: Clin ical significance of the APTT is questionable in the presence of heparin. Performed By: #### L [id number] #### [facility] (BEAKER) [address] [place] [address] Anesthesiaon 01-27-2024 Anesthesia [id number] Fatuma Nance 1955 F Date Provider Department Center 01/27/2024 RAUL STEWART [facility] [place] Medical C No family history on file Normal [facility] BASIC METABOLIC PANELon 01-02 Anion gap [Moles/Vol] 15 mmol/L Normal 7-20 [facility] Comment on above: Performed By: #### L [id number] ####[facility] (BEAKER)[address] [place] [address] Calcium [Mass/Vol] 8.6 mg/dL Normal 8.6-10.3 [facility] Comment on above: Performed By: #### L [id number] ####[facility] (BEAKER)[address] [place] [address] Chloride [Moles/Vol] 104 mmol/L Normal 98-107 [facility] Comment on above: Performed By: #### L [id number] ####[facility] (BEAKER)[address] [place] [address] CO2 [Moles/Vol] 23 mmol/L Normal 21-31 [facility] Comment on above: Performed By: #### L [id number] ####[facility] (BEAKER)[address] [place] [address] Creatinine [Mass/Vol] 0.61 mg/dL Normal 0.60-1.20 [facility] Comment on above: Performed By: #### L [id number] ####[facility] (BEAKER)[address] [place] [address] GLOMERULAR FILTRATION RATE ML/MIN/1.73 SQ M.PREDICTED 97.3 mL/min/1.73m*2 Normal >60.0 [facility] Comment on above: Result Comment: The [facility]???s estimated glomerular filtration rate (eGFR) will [...] of individuals. Performed By: #### L [id number] ####[facility] ([facility])[address] [place] [address] Glucose [Mass/Vol] 95 mg/dL Normal 70-100 [facility] Comment on above: Performed By: #### L [id number] ####[facility] ([facility])[address] [place] [address] Potassium [Moles/Vol] 3.6 mmol/L Normal 3.5-5.1 [facility] Comment on above: Performed By: #### L [id number] ####[facility] ([facility])[address] [place] [address] Sodium [Moles/Vol] 138 mmol/L Normal 136-145 [facility] Comment on above: Performed By: #### L [id number] ####[facility] ([facility])[address] [place] [address] Urea nitrogen [Mass/Vol] 8 mg/dL Normal 7-25 [facility] Comment on above: Performed By: #### L [id number] ####[facility] ([facility])[address] [place] [address] UREA NITROGEN/CREATININE (MASS RATIO) IN SER/PLAS 13.1 Normal [facility] Comment on above: Performed By: #### L [id number] ####[facility] ([facility])[address] [place] [address] CBC WITH AUTO DIFFERENTIALon 01-27-2024 Basophils (Bld) [#/Vol] 0.03 10*3/uL Normal 0.00-0.20 [facility] Comment on above: Performed By: #### L [id number] #### [facility] (BEAKER) [address] [place] [address] Basophils/100 WBC (Bld) 0.3 % Normal 0.0-1.0 [facility] Comment on above: Performed By: #### L [id number] #### [facility] (BEAKER) [address] [place] [address] Eosinophils (Bld) [#/Vol] 0.04 10*3/uL Normal 0.00-0.50 [facility] Comment on above: Performed By: #### L [id number] #### [facility] (BEAKER) [address] [place] [address] Eosinophils/100 WBC (Bld) 0.3 % Normal 0.0-6.0 [facility] Comment on above: Performed By: #### L [id number] #### [facility] [address] [place] [address] Erythrocyte distribution width (RBC) [Ratio] 13.6 % Normal 11.5-15.0 [facility] Comment on above: Performed By: #### L [id number] #### [facility] ([facility]) [address] [place] [address] ERYTHROCYTE MEAN CORPUSCULAR HEMOGLOBIN CONCENTRATION (G/DL) BY AUTOMATED 34.1 g/dL Normal 32.0-35.0 [facility] Comment on above: Performed By: #### L [id number] #### [facility] (BEAKER) [address] [place] [address] Hematocrit (Bld) [Volume fraction] 42.8 % Normal 36.0-48.0 [facility] Comment on above: Performed By: #### L [id number] #### [facility] (BEAKER) [address] [place] [address] Hemoglobin (Bld) [Mass/Vol] 14.6 g/dL Normal 12.0-15.0 [facility] Comment on above: Performed By: #### L [id number] #### [facility] (BEAKER) [address] [place] [address] Immature granulocytes (Bld) [#/Vol] 0.04 10*3/uL Normal 0.00-0.20 [facility] Comment on above: Performed By: #### L [id number] #### [facility] (BEAKER) [address] [place] [address] Immature granulocytes/100 WBC (Bld) 0.3 % Normal 0.0-1.0 [facility] Comment on above: Performed By: #### L [id number] #### [facility] (BEAKER) [address] [facility] [place] [address] Lymphocytes (Bld) [#/Vol] 1.30 10*3/uL Normal 1.20-4.00 [facility] Comment on above: Performed By: #### L [id number] #### [facility] (BEAKER) [address] [facility] [address] Lymphocytes/100 WBC (Bld) 11.2 % Low 20.0-45.0 [facility] Comment on above: Performed By: #### L [id number] #### [facility] (BEAKER) [address] [place] [address] MCH (RBC) [Entitic mass] 28.9 pg Normal 27.0-33.0 [facility] Comment on above: Performed By: #### L [id number] #### [facility] (BEAKER) [address] [place] [address] MCV (RBC) [Entitic vol] 84.8 fL Normal 82.0-98.0 [facility] Comment on above: Performed By: #### L [id number] #### [facility] (BEAKER) [address] [place] [address] Monocytes (Bld) [#/Vol] 0.61 10*3/uL Normal 0.10-1.00 [facility] Comment on above: Performed By: #### L [id number] #### [facility] (BEAKER) [address] [place] [address] Monocytes/100 WBC (Bld) 5.3 % Normal 5.0-12.0 [facility] Comment on above: Performed By: #### L [id number] #### [facility] [address] [place] [address] Neutrophils (Bld) [#/Vol] 9.57 10*3/uL High 1.60-7.60 [facility] Comment on above: Performed By: #### L [id number] #### [facility] ([facility]) [address] [place] [address] Neutrophils/100 WBC (Bld) 82.6 % High 40.0-72.0 [facility] Comment on above: Performed By: #### L [id number] #### [facility] ([facility]) [address] [place] [address] NRBC (PER 100 WBCS) BY AUTOMATED COUNT 0.0 % Normal 0 [facility] Comment on above: Performed By: #### L [id number] #### [facility] ([facility]) [address] [place] [address] PLATELETS (10*3/UL) IN BLOOD AUTOMATED COUNT 213 10*3/uL Normal 150-400 [facility] Comment on above: Performed By: #### L [id number] #### [facility] [address] [place] [address] RBC (Bld) [#/Vol] 5.05 10*6/uL High 3.80-5.00 [facility] Comment on above: Performed By: #### L [id number] #### [facility] [address] [place] [address] WBC (Bld) [#/Vol] 11.59 10*3/uL High 4.00-10.60 [facility] Comment on above: Performed By: #### L [id number] #### [facility] (BEAKER) [address] [place] [address] CT ABDOMEN PELVIS W IV CONTR John [...] be obtained. Electronically signed: FITO MCDERMOTT MD. 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 Pt arrives with 20g IV and NG in R nostril at 55cm. Pt alert and oriented on arrival. [facility] EDPROVon 01-27-2024 EDPROV HPI Chief Complaint Patient [...] in the past. Pt was transferred from [place] due to finding of incarcerated abd hernia. [...] ED Course & MDM Diagnoses as of 01/27/24 2150 Incarcerated hernia Medical Decision Making Delvin Barajas, documented on behalf of Dr. Gordon. Chief [...] Glucose, Urine Negative Bilirubin, Urine Negative Specific [place], Urine 1.024 (*) Ketones, Urine 20 (*) [...] Procedure Abnormality Status --------- ------ CBC auto differential[[id number]] Abnormal Final result Please view results for these tests on the individual orders. Radiology: CT abdom (more content not included)... Normal [facility] HEPATIC FUNCTION PANELon Albumin [Mass/Vol] 3.7 g/dL Normal 3.5-5.7 [facility] Comment on above: Performed By: #### L [id number] #### [facility] ([facility]) [address] [place] [address] ALP [Catalytic activity/Vol] 48 U/L Normal 34-104 [facility] Comment on above: Performed By: #### L [id number] #### [facility] ([facility]) [address] [place] [address] ALT [Catalytic activity/Vol] 11 U/L Normal 7-52 [facility] Comment on above: Performed By: #### L [id number] #### [facility] ([facility]) [address] [place] [address] AST [Catalytic activity/Vol] 16 U/L Normal 13-39 [facility] Comment on above: Performed By: #### L [id number] #### [facility] ([facility]) [address] [place] [address] Bilirubin [Mass/Vol] 0.5 mg/dL Normal 0.3-1.0 [facility] Comment on above: Performed By: #### L [id number] #### [facility] ([facility]) [address] [facility] [place] [address] Magnesium [Mass/Vol] 0.1 mg/dL Normal 0-0.2 [facility] Comment on above: Performed By: #### L [id number] #### [facility] ([facility]) [address] [place] [address] Protein [Mass/Vol] 6.3 g/dL Normal 6.0-8.3 [facility] Comment on above: Performed By: #### L [id number] #### [facility] (PARKER) [address] [place] [address] HPon 01-27-2024 HP History Of Present Illness Fatuma Nance is a 68 y.o. 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 Patient [...] female pat (more content not included)... Normal [facility] LACTIC ACID WITH 4 HOUR REFL EXon 01-27-2024 LACTATE (MMOL/L) IN SER/PLAS 1.3 mmol/L Normal 0.5-2.2 [facility] Comment on above: Performed By: #### L [id number] #### [facility] (BEAKER) [address] [place] [address] MAGNESIUMon 01-27-2024 Magnesium [Mass/Vol] 1.3 mg/dL Low 1.9-2.7 [facility] Comment on above: Performed By: #### L [id number] ####[facility] (BEAKER)[address] [place] [address] OPNOTEon 01-27-2024 OPNOTE REPAIR, HERNIA, LAPAROSCOPIC (R) Operative Note Date: 01/27/2024 - 01/28/2024 Location: [facility] OR Name: Fatuma Nance, : 1955, Diagnosis [...] Right nostril (Active) Placement Verification Other (Comment) 09/26/24 2135 Secured at 57 cm 01/27/242134 Measured from nare 01/27/242134 Tube Feeding Securement Tape 01/27/242134 Site Assessment Clean;Dry;Intact 01/27/242134 Nasogastric/Orogastric Status Low intermittent suction 01/27/242134 Drainage Appearance Cloudy;Thick;Clear;Gre en 01/27/242233 Output (mL) 100 mL 01/27/242233 Urethral Catheter Non-latex 16 Fr. (Active) Staff: Manager Fast Food: Shi Wolf RN Relief Manager Fast Food: Asha Mohr RN Scrub Person: Sofia Lawrence, RENETTA Director Risk: Raphael Blackman CSA Indications: Fatuma Nance is [...] PACU - hemodynamically stable. Condition: stable Shelley MalaognIrving Normal [facility] PROTIME-INRon 01-27-2024 INR IN PPP BY COAGULATION ASSAY 1.10 Normal 0.90-1.10 [facility] Comment on above: Result Comment: ACCC [...] 1995;[id number]. Performed By: #### L [id number] #### [facility] ([facility]) [address] [place] [address] PROTHROMBIN TIME (PT) IN PPP BY COAGULATION ASSAY 14.2 Seconds Normal 12.3-14.8 [facility] Comment on above: Performed By: #### L [id number] #### [facility] ([facility]) [address] [facility] [place] [address] TYPE AND SCREENon 01-27-2024 AB SCREEN Negative Normal [facility] Comment on above: Performed By: #### L [id number] #### [facility] , ABO group Nom (Bld) A Normal [facility] Comment on above: Performed By: #### L [id number] #### [facility] , RH TYPE IN BLOOD Positive Normal [facility] Comment on above: Performed By: #### L [id number] #### [facility] , URINALYSISon 01-27-2024 BILIRUBIN, TOTAL PRESENCE IN URINE Negative Normal Negative [facility] Comment on above: Order Comment: Micro scopics not performed on urines with negative chemical reactions unless requested on original order. Performed By: #### L [id number] #### [facility] (BEAKER) [address] [facility] [place] [address] Clarity (U) Clear Normal Clear [facility] Comment on above: Order Comment: Micro scopics not performed on urines with negative chemical reactions unless requested on original order. Performed By: #### L [id number] #### [facility] (BEAKER) [address] [facility] [place] [address] Color (U) Straw Abnormal Yellow [facility] Comment on above: Order Comment: Micro scopics not performed on urines with negative chemical reactions unless requested on original order. Performed By: #### L [id number] #### [facility] ([facility]) [address] [place] [address] Glucose (U) [Mass/Vol] Negative Normal Negative [facility] Comment on above: Order Comment: Micro scopics not performed on urines with negative chemical reactions unless requested on original order. Performed By: #### L [id number] #### [facility] ([facility]) [address] [place] [address] HEMOGLOBIN PRESENCE IN URINE Negative Normal Negative [facility] Comment on above: Order Comment: Micro scopics not performed on urines with negative chemical reactions unless requested on original order. Performed By: #### L [id number] #### [facility] ([facility]) [address] [place] [address] Ketones Ql (U) 20 mg/dL Abnormal Negative [facility] Comment on above: Order Comment: Micro scopics not performed on urines with negative chemical reactions unless requested on original order. Performed By: #### L [id number] #### [facility] ([facility]) [address] [place] [address] LEUKOCYTE ESTERASE PRESENCE IN URINE BY TEST STRIP Negative Normal Negative [facility] Comment on above: Order Comment: Micro scopics not performed on urines with negative chemical reactions unless requested on original order. Performed By: #### L [id number] #### [facility] ([facility]) [address] [place] [address] NITRITE PRESENCE IN URINE Negative Normal Negative [facility] Comment on above: Order Comment: Micro scopics not performed on urines with negative chemical reactions unless requested on original order. Performed By: #### L [id number] #### [facility] ([facility]) [address] [place] [address] pH (U) 7.0 [pH] Normal 5.0-8.0 [facility] Comment on above: Order Comment: Micro scopics not performed on urines with negative chemical reactions unless requested on original order. Performed By: #### L [id number] #### [facility] (BEAKER) [address] [place] [address] Protein (U) [Mass/Vol] Negative Normal Negative [facility] Comment on above: Order Comment: Micro scopics not performed on urines with negative chemical reactions unless requested on original order. Performed By: #### L [id number] #### [facility] ([facility]) [address] [place] [address] Specific gravity (U) [Rel density] 1.024 High 1.015-1.020 [facility] Comment on above: Order Comment: Micro scopics not performed on urines with negative chemical reactions unless requested on original order. Performed By: #### L [id number] #### [facility] ([facility]) [address] [place] [address] ALL BASIC METABOLIC PANELon 06-15-2023 Anion gap [Moles/Vol] 11.2 mmol/L [facility] Calcium [Mass/Vol] 9.0 mg/dL 8.5 - 10. 1 mg/dL [facility] Chloride [Moles/Vol] 102 mmol/L 98 - 10 7 mmol/L [facility] CO2 [Moles/Vol] 28.3 mmol/L 21.0 - 32.0 mmol/L [facility] Creatinine [Mass/Vol] 0.85 mg/dL 0.55 - 1.02 mg/dL [facility] GFR/1.73 sq M.predicted CKD-EPI (S/P/Bld) [Vol rate/Area] >60 60 - PINF [facility] Glucose [Mass/Vol] 105 mg/dL 74 - 106 mg/dL [facility] Potassium [Moles/Vol] 4.5 mmol/L 3.5 - 5.1 mmol/L [facility] Sodium [Moles/Vol] 137 mmol/L 136 - 145 mmol/L [facility] TBH EGFR-NON AF INDIAN >60 60 - PINF [facility] Urea nitrogen [Mass/Vol] 13.0 mg/dL 7.0 - 18.0 mg/dL [facility] Urea nitrogen/Creatinine [Mass ratio] 15.3 mg/mg [facility] MRI CSPINE WO CONon 09-26-19 MRI CSPINE WO CON EXAMINATION: MRI CSPINE [...] by: SUNNY VIRAMONTES Date: 2022-09-25 12:52 Normal [facility] MRI PINE WO CONon 09-26-19 MRI LSPINE WO CON EXAMINATION: MRI LSPINE [...] SUNNY VIRAMONTES Date: 2022-09-25 12:04 Normal [facility] CBC AUTO DIFFon 09-17-2022 BASO # 0.0 103/ul Normal 0.0-0.1 [facility] Comment on above: Performed By: #### C BC ####[facility] [address] [place], [place] [address]Dr. Paola Moreno Basophils/100 WBC (Bld) 0.4 % Normal 0.2-2.0 [facility] Comment on above: Performed By: #### C BC ####[facility] [address] [place] [address]DrLeah Moreno EO # 0.2 103/ul Normal 0.0-0.7 [facility] Comment on above: Performed By: #### C BC ####[facility] [address] [place] [address]DrLeah Moreno Eosinophils/100 WBC (Bld) 2.9 % Normal 0.9-7.0 [facility] Comment on above: Performed By: #### C BC ####[facility] [address] [place] [address]DrLeah Moreno Erythrocyte distribution width (RBC) [Ratio] 13.6 % Normal 11.0-15.0 [facility] Comment on above: Performed By: #### C BC ####[facility] [address] [place] [address]Dr. Paola Moreno Hematocrit (Bld) [Volume fraction] 44.1 % Normal 36.0-48.0 [facility] Comment on above: Performed By: #### C BC ####[facility] [address] [place] [address]DrLeah Paola Moreno Hemoglobin (Bld) [Mass/Vol] 14.6 g/dL Normal 12.0-16.0 [facility] Comment on above: Performed By: #### C BC ####[facility] [address] [place], [place] [address]DrLeah Paola Moreno IG # 0.03 10e3/ul Normal 0.00-0.03 [facility] Comment on above: Performed By: #### C BC ####[facility] [address] [place], [place] [address]Dr. Aliyahromy Moreno IG % 0.4 % Normal 0.0-0.5 [facility] Comment on above: Performed By: #### C BC ####[facility] [address] [place], [place] [address]DrLeah Paola Moreno LYMPH # 1.4 103/ul Normal 1.2-3.8 [facility] Comment on above: Performed By: #### C BC ####[facility] [address] [place], [place] [address]DrLeah Aliyahromy Moreno Lymphocytes/100 WBC (Bld) 17.2 % Critically low 20.5-60.0 [facility] Comment on above: Performed By: #### C BC ####[facility] [address] [place], [place] [address]DrLeah Aliyahromy Moreno MANUAL DIFF REQ NO Normal [facility] Comment on above: Performed By: #### C BC ####[facility] [address] [place], [place] [address]DrLeah Moreno MCH (RBC) [Entitic mass] 29.6 pg Normal 26.7-34.0 [facility] Comment on above: Performed By: #### C BC ####[facility] [address] [place] [address]Dr. Paola Moreno MCHC (RBC) [Mass/Vol] 33.1 g/dL Normal 29.9-35.2 [facility] Comment on above: Performed By: #### C BC ####[facility] [address] [place], [place] [address]DrLeah Moreno MCV (RBC) [Entitic vol] 89.3 fL Normal 81.0-99.0 [facility] Comment on above: Performed By: #### C BC ####[facility] [address] [place], [place] [address]DrLeah Moreno MONO # 0.7 103/ul Normal 0.3-0.8 [facility] Comment on above: Performed By: #### C BC ####[facility] [address] [place], [place] [address]Dr. Paola Moreno Monocytes/100 WBC (Bld) 7.8 % Normal 1.7-12.0 [facility] Comment on above: Performed By: #### C BC ####[facility] [address] [place], [place] [address]DrLeah Moreno NEUT # 6.0 103/ul Normal 1.4-6.5 [facility] Comment on above: Performed By: #### C BC ####[facility] [address] [place], [place] [address]DrLeah Moreno Neutrophils/100 WBC (Bld) 71.3 % Normal 43.0-75.0 [facility] Comment on above: Performed By: #### C BC ####[facility] [address] [place], [place] [address]DrLeah Moreno Platelet mean volume (Bld) [Entitic vol] 10.6 fL Normal 9.5-13.5 [facility] Comment on above: Performed By: #### C BC ####[facility] [address] [place], [place] [address]Dr. Paola Moreno PLT 191 103/ul Normal 150-450 [facility] Comment on above: Performed By: #### C BC ####[facility] [address] [address]Dr. Paola Moreno RBC 4.94 106/ul Normal 4.20-5.40 [facility] Comment on above: Performed By: #### C BC ####[facility] [address] [address]Dr. Paola Moreno WBC 8.4 103/ul Normal 4.0-11.0 [facility] Comment on above: Performed By: #### C BC ####[facility] [address] [address]DrLeah Moreno FREE T3on 09-17-2022 FREE T3 2.55 pg/mlL Normal 2.18-3.98 [facility] Comment on above: Performed By: #### T SH, LIPID, BMP, LIVER, FT3 #### [facility] [address] [address] [address] Paola Moreno FREE T4on 09-17-2022 Free T4 [Mass/Vol] 0.84 ng/dL Normal 0.76-1.46 [facility] Comment on above: Performed By: #### F T4 #### [facility] [address] [address] [address] Paola Moreno GLYCOHEMOGLOBIN A1Con 2022 ADA RECOMMENDATION SEE BELOW Normal [facility] Comment on above: Result Comment: ADA RECOMMENDED LIMIT 4.0 - 6.0 ADA THERAPEUTIC TARGET < 7.0 ACTION SUGGESTED > 7.0 Performed By: #### A 1C #### [facility] [address] [address] [address] Paola Moreno Glucose [Mass/Vol] 85 mg/dL Normal [facility] Comment on above: Performed By: #### A 1C #### [facility] [address] [address] [address] Paola Moreno HbA1c (Bld) [Mass fraction] 4.6 % Normal 4.5-6.2 [facility] Comment on above: Performed By: #### A 1C #### [facility] [address] [address] [address] Paola Moreno LIPID PROFILEon 09-17-2022 CHOL-HDL RATIO NORM SEE BELOW Normal [facility] Comment on above: Result Comment: 3.3 - 4.4 LOW RISK 4.4 - 7.1 AVERAGE RISK 7.1 - 11.0 MODERATE RISK >11.0 HIGH RISK Performed By: #### T SH, LIPID, BMP, LIVER, FT3 #### [facility] [address] [address] [address] Paola Moreno Cholesterol [Mass/Vol] 162 mg/dL Normal <=200 [facility] Comment on above: Performed By: #### T SH, LIPID, BMP, LIVER, FT3 #### [facility] [address] [address] [address] Paola Moreno Cholesterol in HDL [Mass/Vol] 88 mg/dL Critically high 40-60 [facility] Comment on above: Performed By: #### T SH, LIPID, BMP, LIVER, FT3 #### [facility] [address] [address] [address] Paola Moreno Cholesterol in LDL [Mass/Vol] 38.2 mg/dL Normal [facility] Comment on above: Performed By: #### T SH, LIPID, BMP, LIVER, FT3 #### [facility] [address] [address] [address] Paola Moreno Cholesterol.total/Ch olesterol in HDL [Mass ratio] 1.8 {ratio} Normal [facility] Comment on above: Performed By: #### T SH, LIPID, BMP, LIVER, FT3 #### [facility] [address] [address] [address] Paola Moreno HDL NORMAL > or = 60 mg/dl - LO W CARDIOVASCULAR RISK <40 mg/dl - HIGH CARDIOVASCULAR RISK Normal [facility] Comment on above: Performed By: #### T SH, LIPID, BMP, LIVER, FT3 #### [facility] [address] [address] [address] Paola Moreno LDL CALC NORMAL SEE BELOW Normal [facility] Comment on above: Result Comment: <100 mg/dl OPTIMAL 100 - 129 mg/dl NEAR OR ABOVE OPTIMAL 130 - 159 mg/dl BORDERLINE HIGH 160 - 189 mg/dl HIGH >190 mg/dl VERY HIGH Performed By: #### T SH, LIPID, BMP, LIVER, FT3 #### [facility] [address] [address] [address] Paola Moreno Triglyceride [Mass/Vol] 179 mg/dL Critically high <=150 [facility] Comment on above: Performed By: #### T SH, LIPID, BMP, LIVER, FT3 #### [facility] [address] [address] [address] Paola Moreno VLDL CALC 35.8 mg/dL Normal [facility] Comment on above: Performed By: #### T SH, LIPID, BMP, LIVER, FT3 #### [facility] [address] [place] [address] Dr. Paola Moreno LIVER PROFILEon 09-17-2022 Albumin [Mass/Vol] 3.3 g/dL Critically low 3.4-5.0 Th [facility] Comment on above: Performed By: #### T SH, LIPID, BMP, LIVER, FT3 #### [facility] [address] [place] [address] Dr. Paola Moreno Albumin/Globulin [Mass ratio] 0.8 {ratio} Normal [facility] Comment on above: Performed By: #### T SH, LIPID, BMP, LIVER, FT3 #### [facility] [address] [place] [address] Dr. Paola Moreno ALP [Catalytic activity/Vol] 69 U/L Normal 46-116 [facility] Comment on above: Performed By: #### T SH, LIPID, BMP, LIVER, FT3 #### [facility] [address] [place] [address] Dr. Paola Moreno ALT [Catalytic activity/Vol] 24 U/L Normal 14-59 [facility] Comment on above: Performed By: #### T SH, LIPID, BMP, LIVER, FT3 #### [facility] [address] [place] [address] Dr. Paola Moreno AST [Catalytic activity/Vol] 20 U/L Normal 15-37 [facility] Comment on above: Performed By: #### T SH, LIPID, BMP, LIVER, FT3 #### [facility] [address] [address] [address] Paola Moreno BILI, CONJUGATED 0.1 mg/dL Normal 0.0-0.2 The [facility] Comment on above: Performed By: #### T SH, LIPID, BMP, LIVER, FT3 #### [facility] [address] [place] [address] Dr. Paola Moreno Bilirubin [Mass/Vol] 0.4 mg/dL Normal 0.2-1.0 [facility] Comment on above: Performed By: #### T SH, LIPID, BMP, LIVER, FT3 #### [facility] [address] [place] [address] Dr. Paola Moreno Globulin (S) [Mass/Vol] 4.0 g/dL Normal [facility] Comment on above: Performed By: #### T SH, LIPID, BMP, LIVER, FT3 #### [facility] [address] [place] [address] Dr. Paola Moreno Protein [Mass/Vol] 7.3 g/dL Normal 6.4-8.2 [facility] Comment on above: Performed By: #### T SH, LIPID, BMP, LIVER, FT3 #### [facility] [address] [place] [address] Dr. Paola Moreno PROF CHEM 8 (BAS METB)on Anion gap [Moles/Vol] 11.8 mmol/L Normal [facility] Comment on above: Performed By: #### T SH, LIPID, BMP, LIVER, FT3 #### [facility] [address] [place] [address] Dr. Paola Moreno Calcium [Mass/Vol] 9.0 mg/dL Normal 8.5-10.1 [facility] Comment on above: Performed By: #### T SH, LIPID, BMP, LIVER, FT3 #### [facility] [address] [place] [address] Dr. Paola Moreno Chloride [Moles/Vol] 103 mmol/L Normal 98-107 [facility] Comment on above: Performed By: #### T SH, LIPID, BMP, LIVER, FT3 #### [facility] [address] [address] [address] Paola Moreno CO2 [Moles/Vol] 30.5 mmol/L Normal 21.0-32.0 [place] Comment on above: Performed By: #### T SH, LIPID, BMP, LIVER, FT3 #### [facility] [address] [address] [address] Paola Moreno Creatinine [Mass/Vol] 0.83 mg/dL Normal 0.55-1.02 [facility] Comment on above: Performed By: #### T SH, LIPID, BMP, LIVER, FT3 #### [facility] [address] [place] [address] Dr. Paola Moreno EGFR-AF INDIAN >60 Normal >=60 [place] Comment on above: Performed By: #### T SH, LIPID, BMP, LIVER, FT3 #### [facility] [address] [address] [address] Paola Moreno EGFR-NON AF INDIAN >60 Normal >=60 [facility] Comment on above: Performed By: #### T SH, LIPID, BMP, LIVER, FT3 #### [facility] [address] [address] [address] Paola Moreno Glucose [Mass/Vol] 122 mg/dL Critically high 74-106 [facility] Comment on above: Performed By: #### T SH, LIPID, BMP, LIVER, FT3 #### [facility] [address] [address] [address] Paola Moreno Potassium [Moles/Vol] 4.3 mmol/L Normal 3.5-5.1 [facility] Comment on above: Performed By: #### T SH, LIPID, BMP, LIVER, FT3 #### [facility] [address] [address] [address] Paola Moreno Sodium [Moles/Vol] 141 mmol/L Normal 136-145 [facility] Comment on above: Performed By: #### T SH, LIPID, BMP, LIVER, FT3 #### [facility] [address] [address] [address] Paola Moreno Urea nitrogen [Mass/Vol] 12.0 mg/dL Normal 7.0-18.0 [facility] Comment on above: Performed By: #### T SH, LIPID, BMP, LIVER, FT3 #### [facility] [address] [address] [address] Paola Moreno Urea nitrogen/Creatinine [Mass ratio] 14.5 mg/mg Normal [facility] Comment on above: Performed By: #### T SH, LIPID, BMP, LIVER, FT3 #### [facility] [address] [address] [address] Paola Moreno TSHon 09-17-2022 TSH 3.671 uIU/mL Normal 0.358-3.740 [facility] Comment on above: Performed By: #### T SH, LIPID, BMP, LIVER, FT3 #### [facility] [address] [address] [address] Paola Moreno XR WRIST RT MIN 3 Von 2022 XR WRIST RT MIN 3 V EXAM: XR WRIST RT VA N 3 V HISTORY: Pain of right [...] by: GUMARO GUEVARA Date: 2022-09-17 12:41 Normal [facility] Vital Signs Date Time Vital Sign Value Performing Clinician Facility 06-07-2024 14:15-0500 Blood Pressure Location Douglas NGUYEN [facility] 06-07-2024 14:15-0500 Diastolic blood pressure 82 mm[Hg] [facility] 06-07-2024 14:15-0500 Heart rate 72 /min Douglas NGUYEN [facility] 06-07-2024 14:15-0500 Respiratory rate 16 /min Douglas NGUYEN [facility] 06-07-2024 14:15-0500 Systolic blood pressure 122 mm[Hg] [facility] 05-26-2024 10:02-0500 Body height 160 cm Mikey Singh MD Work Phone: [facility] 05-26-2024 10:02-0500 Body mass index (BMI) [Ratio] 32.06 kg/m2 Mikey Singh MD Work Phone: [facility] 05-26-2024 10:02-0500 Body temperature 97.3 [degF] Mikey Singh MD Work Phone: [facility] 05-26-2024 10:02-0500 Body weight 82.1 kg Mikey Singh MD Work Phone: [facility] 05-26-2024 10:02-0500 Diastolic blood pressure 80 mm[Hg] Mikey Singh MD Work Phone: [facility] 05-26-2024 10:02-0500 Heart rate 63 /min Mikey Singh MD Work Phone: [facility] 05-26-2024 10:02-0500 Respiratory rate 22 /min Mikey Singh MD Work Phone: [facility] 05-26-2024 10:02-0500 SaO2% (BldA) [Mass fraction] 98 % Mikey Singh MD Work Phone: [facility] 05-26-2024 10:02-0500 Systolic blood pressure 140 mm[Hg] Mikey Singh MD Work Phone: [facility] 03-09-2024 11:56-0500 Body height 160 cm Mikey Singh MD Work Phone: [facility] 03-09-2024 11:56-0500 Body mass index (BMI) [Ratio] 33.13 kg/m2 Mikey Singh MD Work Phone: [facility] 03-09-2024 11:56-0500 Body temperature 97.59 [degF] Mikey Singh MD Work Phone: [facility] 03-09-2024 11:56-0500 Body weight 84.82 kg Mikey Singh MD Work Phone: [facility] 03-09-2024 11:56-0500 Diastolic blood pressure 86 mm[Hg] Mikey Singh MD Work Phone: [facility] 03-09-2024 11:56-0500 Heart rate 64 /min Mikey Singh MD Work Phone: [facility] 03-09-2024 11:56-0500 Respiratory rate 18 /min Mikey Singh MD Work Phone: [facility] 03-09-2024 11:56-0500 SaO2% (BldA) [Mass fraction] 98 % Mikey Singh MD Work Phone: [facility] 03-09-2024 11:56-0500 Systolic blood pressure 146 mm[Hg] Mikey Singh MD Work Phone: [facility] 02-01-2024 11:25-0400 Body height 160 cm Mikey Singh MD Work Phone: [facility] 02-01-2024 11:25-0400 Body mass index (BMI) [Ratio] 33.13 kg/m2 Mikey Singh MD Work Phone: [facility] 02-01-2024 11:25-0400 Body temperature 97.11 [degF] Mikey Singh MD Work Phone: [facility] 02-01-2024 11:25-0400 Body weight 84.82 kg Mikey Singh MD Work Phone: [facility] 02-01-2024 11:25-0400 Diastolic blood pressure 86 mm[Hg] Mikey Singh MD Work Phone: [facility] 02-01-2024 11:25-0400 Heart rate 68 /min Mikey Singh MD Work Phone: [facility] 02-01-2024 11:25-0400 Respiratory rate 22 /min Mikey Singh MD Work Phone: [facility] 02-01-2024 11:25-0400 SaO2% (BldA) [Mass fraction] 98 % Mikey Singh MD Work Phone: [facility] 02-01-2024 11:25-0400 Systolic blood pressure 160 mm[Hg] Mikey Singh MD Work Phone: [facility] Healthcare Encounters Encounter Date Encounter Type Care Provider Facility Start: 06-12-2024 End: 06-13-2024 Refill Mikey Singh MD Work Phone: [facility] Comment on above: Primary insomnia Start: 06-07-2024 End: 06-07-2024 ambulatory Douglas NGUYEN Facility:[facility] Start: 06-07-2024 End: 06-07-2024 Patient encounter procedure Douglas NGUYEN [facility] [place] Start: 06-06-2024 End: 06-06-2024 Clinisync Result Encounter Mikey Singh MD Work Phone: [facility] Unsolicited Start: 06-06-2024 End: 06-06-2024 Clinisync Result Encounter Mikey Singh MD Work Phone: [facility] Unsolicited Start: 06-05-2024 End: 06-05-2024 Clinisync Result Encounter Mikey Singh MD Work Phone: [facility] Unsolicited Start: 06-05-2024 End: 06-05-2024 Clinisync Result Encounter Mikey Singh MD Work Phone: [facility] Unsolicited Start: 05-30-2024 End: 05-30-2024 Refill Mikey Singh MD Work Phone: [facility] Comment on above: Primary insomnia Start: 05-29-2024 End: 05-29-2024 Refill Mikey Singh MD Work Phone: [facility] Comment on above: DDD (degenerative di sc disease), lumbar; Gastroesophageal reflux disease without esophagitis; Depression, unspecified depression type (CMS/HCC); Hypokalemia; Dyslipidemia (CMS/HCC); Primary insomnia; Primary hypertension (CMS/HCC) Start: 05-29-2024 ambulatory [facility] Facility: [facility] [place] Start: 05-26-2024 End: 05-26-2024 Bamboo flowsheet Mikey Singh MD Work Phone: [facility] Start: 05-26-2024 End: 05-26-2024 Bamboo flowsheet Mikey Singh MD Work Phone: [facility] Start: 05-26-2024 End: 05-26-2024 Office outpatient visit 25 minutes Mikey Singh MD Work Phone: [facility] Comment on above: Type 2 diabetes [...] 05-01-2024 Refill Mikey Singh MD Work Phone: [facility] Comment on above: SOB (shortness of br [...] disease), lumbar Start: 02-07-2024 End: 02-07-2024 ambulatory [facility] Start: 02-01-2024 End: 02-01-2024 Bamboo flowsheet Mikey Singh MD Work Phone: [facility] Start: 02-01-2024 End: 02-01-2024 Bamboo flowsheet Mikey Singh MD Work Phone: [facility] Start: 02-01-2024 End: 02-01-2024 Transitional care manage srvc 7 day discharge Mikey Singh MD Work Phone: [facility] Comment on above: 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); Allergic contact dermatitis due to adhesives; Benign hypertension (CMS/HCC); DDD (degenerative disc disease), lumbar Start: 02-01-2024 End: 02-01-2024 ambulatory MIKEY SINGH Not Available Start: 01-27-2024 Emergency department patient visit [facility] Start: 01-27-2024 Emergency department patient visit [facility] Start: 01-27-2024 End: 01-28-2024 Evaluation and management of inpatient GWEN WILLIS [facility] Start: 01-27-2024 End: 01-29-2024 Clinisync Result Encounter Generic External Data Provider [facility] Unsolicited Start: 01-27-2024 End: 01-29-2024 Clinisync Result Encounter Generic External Data Provider [facility] Unsolicited Start: 12-27-2023 End: 12-28-2023 Refill Mikey Singh MD Work Phone: [facility] Comment on above: Chronic pain of [...] 06-14-2023 Refill Mikey Jaramillo Work Phone: [facility] Comment on above: Hypokalemia (Primary Dx); Primary insomnia Start: 05-10-2023 End: 05-10-2023 ambulatory MIKEY SINGH Not Available Start: 10-01-[address] MIKEY SINGH Facil ity:[facility]1 Start: 09-25-2022 End: 09-26-[address] MIKEY SINGH Facility:[facility] Start: 09-17-2022 End: 09-18-[address] MIKEY SINGH Facility:[facility] Procedures Date Procedure Procedure Detail Performing Clinician Start: 06-07-2024 Mammography Mikey mcguire MD Work Phone: Start: 06-06-2024 MM TOMOSYNTHESIS SCR EENING BI Mikey Singh MD Work Phone: Start: 06-06-2024 Mammography Mikey mcguire MD Work Phone: Start: 06-05-2024 MLR HEMOGLOBIN A1C Mikey Singh MD Work Phone: Start: 01-27-2024 Bacteria identified in Urine by Culture Generic External Data Provider Start: 06-15-2023 ALL BASIC METABOLIC PANEL Mikey Singh MD Work Phone: Start: 05-12-2023 Mammography Mikey mcguire MD Work Phone: Start: 05-03-2001 knee arthroscopy 1 Conor aegrant NILL Comment on above: left Repair of joint of r ight knee Douglas NILL Repair of spigelian hernia M ichael NILL Salpingo-oophorectomy Shar l NILL Tonsillectomy Douglas NILL Vaginal hysterectomy Douglas NILL Plan of Treatment Date Care Activity Detail Author Start: 07-04-2025 Glaucoma screening Diabetes: R etinopathy Screening [facility] Healthcare Start: 06-07-2025 Screening for malign ant neoplasm of breast Mammogram [facility] Start: 03-09-2025 Medicare Annual Wellness (AWV) Medicare Annual Wellness (AWV) [facility] Start: 01-26-2025 Urine screening for protein Diabetes: Urine Protein Screening [facility] Start: 11-29-2024 Urine screening for protein Diabetes: Urine Protein Screening [facility] Start: 11-23-2024 End: 11-23-2024 Patient encounter procedure 11/23/2024 10:15 AM EDT Office Visit [facility] [address] [place] [address] Mikey Singh MD [address] [place] [phone] [facility] Start: 06-01-2024 Hemoglobin A1c measurement Diabetes: Hemoglobin A1C [facility] Start: 05-26-2024 End: 05-26-2025 Hemoglobin A1c/Hemoglobin.total in Blood Hemoglobin A1c Lab Routine Type 2 diabetes mellitus with hyperglycemia, without long-term current use of insulin ([facility]) Expected: 05/26/2024 (Approximate), Expires: 05/26/2025 [facility] Work Phone: Comment on above: Expected: 05/26/2024 (Approximate), Expires: 05/26/2025 Start: 05-26-2024 End: 07-24-2025 MG Breast - bilateral Screening Bilateral screening mammogram Imaging Routine Breast cancer screening by mammogram Expected: 05/26/2024, Expires: 07/24/2025 [facility] Comment on above: Expected: 05/26/2024 , Expires: 07/24/2025 Start: 05-26-2024 End: 05-26-2024 Patient encounter procedure 05/26/2024 9:45 AM EST Office Visit [facility] [address] [place] [address] Mikey Singh MD [address] [place] [address] Arrived [facility] Comment on above: Arrived Start: 05-23-2024 End: 05-23-2024 Patient encounter procedure 05/23/2024 10:45 AM EST Office Visit [facility] [address] [place] [address] Mikey Singh MD [address] [place] [phone] [facility] Start: 05-12-2024 Screening for malign ant neoplasm of breast Mammogram [facility] Start: 03-09-2024 End: 03-09-2024 Patient encounter procedure 03/09/2024 11:45 AM EST [facility] [address] [place] [address] Mikey Singh MD [address] [place] [phone] Arrived [facility] Comment on above: Arrived Start: 02-01-2024 End: 02-01-2024 Patient encounter procedure 02/01/2024 11:30 AM EDT Office Visit [facility] [address] [place] [address] Mikey Singh MD [address] [place] [phone] Arrived [facility] Comment on above: Arrived Start: 01-02-2024 Influenza vaccination Influenza Vacc ine (#1) [facility] Healthcare Start: 11-25-2023 End: 11-25-2023 Patient encounter procedure 11/25/2023 11:15 AM EDT Office Visit [facility] [address] [place] [address] Mikey Singh MD [address] [place] [phone] [facility] Start: 01-01-2023 Influenza vaccination Influenza Vacc ine (#1) [facility] Healthcare Start: 12-04-1974 Urine screening for protein Diabetes: Urine Protein Screening [facility] Healthcare Start: 12-04-1965 Glaucoma screening Diabetes: R [...] Payer Category Payer Private Health Insurance [id number] 2024 Private Health Insurance CLI [id number] 2020 Medicare [id number] 2020 Unknown BCBS BCBS xxxxxx [id number] 2020-Present [phone] [address] [place] [address] [id number] 2009 Unknown [id number] 1959 Medicare [id number] 1959 Medicare [id number] 1955 Unknown [id number] 93 1955 Unknown [id number] 93 1955 Unknown [id number] 93 1955 Unknown [id number] 259 1955 Unknown [id number] 259 1955 Unknown [id number] 259 1955 Unknown [id number] 259 1955 Unknown [id number] 259 1955 Unknown [id number] 27 1955 Unknown [id number] 27 Social History Date Type Detail Facility Start: 05-10-2023 End: 12-01-2023 Tobacco smoking status MIIS [facility]-smoker [facility] Start: 05-03-1983 End: 05-03-2013 History of [...] to any clubs or organizations such as anabaptism groups, unions, fraternal or athletic groups, or school groups? No [facility] Are you now , , , , never or living with a partner? [facility] How often to you hav e a drink containing alcohol? Never [facility] How hard is it for y ou to pay for the very basics like food, housing, medical care, and heating Somewhat hard [facility] Do you feel stress - tense, restless, nervous, or anxious, or unable to sleep at night because your mind is troubled all the time - these days [OSQ] Very much [facility] (I/We) worried wheth er (my/our) food would run out before (I/we) got money to buy more. Often true [facility] Healthcare Functional Status Date Assessment Result Facility 06-07-2024 Functional Status N/A [facility] General Surgery [place] Clinical Notes 01-27-2024 to 06-13-2024 Telephone Encounter - Mikey Singh MD - 06/13/2024 11:55 AM ESTTelephone Encounter - Mikey Singh MD - 06/13/2024 11:55 AM ESTTelephone Encounter - Mikey Singh MD - 05/29/2024 3:10 PM EST Note Date & Type Note Facility 06-13-2024 Telephone encounter Note [facility] 06-13-2024 Miscellaneous Notes documented in this encounter [facility] 06-07-2024 Note General Surgery Offi ce/Clinic Note Chief Complaint consultation for colonoscopy HPI Staff 68 year old female presents on consultation from Dr. Singh for surveillance colonoscopy. Patient reports she had a colonoscopy 3 years ago while living in [place]; 9 polyps were removed at this time (operative report and pathology not available to review at this time). Reports one month history of right sided abdominal pain that is fairly constant but waxes and wanes in intensity. Reports intermittent nausea over the past one month. Denies vomiting or bowel changes. Rectal rectal pain or bleeding. No known family history of colon cancer. History of Present Illness 68yo female with h/o htn, hyperlipidemia, DMII, GERD, SKYLER, DDD, referred for colorectal screening; denies change in bms or blood in stools, no abd complaints; abd operations significant for hysterectomy, bilateral oophorectomy, spigelian hernia repair, last colonoscopy 3 years ago in [place], patient reports that 9 polyps were removed; report and pathology not available; on Celebrex daily, no asa; no tobacco use; no fmhx of GI malignancy or IBD. Review of Systems PHQ Score Initial Depression Screen Score: 0 SCORE ROS - Provider Constitutional: no fever, no sweats, no weight loss. Eyes: no glasses, no blurred vision, no visual loss. ENMT: no dentures, no hoarseness, no swallowing difficulties, no hearing loss, no ear infection(s), no nose bleeds. Cardiovascular: normal blood pressure, no chest pain, regular heartbeat, no heart murmur. Respiratory: no shortness of breath, no cough, no asthma, no wheezing. Gastrointestinal: no nausea, no vomiting, no diarrhea, no constipation, no blood in stool, no change in bowel habits, no abdominal pain, no hepatitis. Genitourinary: no kidney stones, no urine infection, no dysuria. Musculoskeletal: no pain, no weakness. Skin: no changing moles, no rash, no skin lumps. Neurologic: no seizures, no epilepsy, no headache. Psychiatric: no emotional or psychiatric problem. Heme/Lymph: no bleeding problems, no anemia, no blood clots, no transfusions. Allergy/Immunologic: no swollen lymph nodes/glands, no IV drug abuse. Other: Additional ROS info: Except as noted in the above Review of Systems and in the History of Present Illness, all other systems have been reviewed and are negative or noncontributory. Physical Exam Vitals & Measurements HR: 72(Peripheral) RR: 16 BP: 122/82 HT: 63 in HT: 160 cm WT: 83.0 kg WT: 182.983 lb BMI: 32.42 HEENT: normal conjunctiva, sclera clear, no scleral icterus, EOM intact, PERRLA, oral mucosa moist without lesions. Neck: trachea midline, no mass, symmetric, no thyromegaly or nodules, no adenopathy Respiratory: lungs CTA, respirations non labored. Cardiovascular: regular rate and rhythm, no murmur, no pedal edema or varicosities. Gastrointestinal: obese, soft, non distended, mild tenderness, RLQ at site of hernia repair no masses, no palpable hernias, diastasis recti no, no hepatosplenomegaly; normal bs Lymphatic: no cervical adenopathy, no supraclavicular adenopathy. Musculoskeletal: normal gait, digits and nails without infection, nodes, cyanosis, clubbing. Skin: no rashes, no lesions, no ulcers, no subcutaneous nodules, induration. Psychiatric/Neuro: oriented to time, place, person, judgement normal, affect appropriate for age, insight intact, no focal deficits. Tests: , review of old records completed , Discussed surgical options, risks, and possible complications with patient. Assessment/Plan 1. Personal history of adenomatous and serrated colon polyps (Z86.0101: Personal history of adenomatous and serrated colon polyps) plan surveillance colonoscopy under anesthesia; informed consent obtained. Follow-up No qualifying data available Problem List/Past Medical History Ongoing Benign hypertension BMI 32.0-32.9,adult Degeneration of lumbar intervertebral disc Dyslipidemia Gastroesophageal reflux disease Generalized anxiety disorder Obesity due to excess calories Personal history of adenomatous and serrated colon polyps Primary open angle glaucoma Screening for malignant neoplasm of colon Type 2 diabetes mellitus Historical No qualifying data Procedure/Surgical History knee arthroscopy (2001), Arthroplasty of right knee, Repair of spigelian hernia, Salpingo-oophorectomy, Tonsillectomy, VH - Vaginal hysterectomy. Medications Albuterol (Eqv-ProAir HFA), 2 puff(s), Inhalation, q6hr, PRN Ambien 10 mg Tab, 10 mg= 1 tab(s), Oral, Once a day (at bedtime), PRN busPIRone 30 mg oral tablet, 30 mg= 1 tab(s), Oral, BID carvedilol 25 mg Tab, 25 mg= 1 tab(s), Oral, BID CeleBREX 200 mg Cap, 200 mg= 1 cap(s), Oral, BID Estrace 2 mg Tab, 2 mg= 1 tab(s), Oral, Daily FLUoxetine 20 mg Cap, 20 mg= 1 cap(s), Oral, Daily losartan 50 mg Tab, 50 mg= 1 tab(s), Oral, BID potassium chloride 20 mEq ER Tab, 20 mEq= 1 tab(s), Oral, BID Protonix 40 mg Tab-DR, 40 mg= 1 tab(s), Oral, Krista (more content not included)... [facility] Comment on above: Result Comment: Elec tronically Signed By: PATRICK MORRISON, Douglas Dumas\Date and Time Signed: 06/07/24 14:51 EST 05-29-2024 Telephone encounter Note [facility] 05-29-2024 Miscellaneous Notes documented in this encounter [facility] 05-26-2024 History of Presen t illness Narrative Associated Problem(s): Type 2 diabetes mellitus with hyperglycemia, without long-term current use of insulin (CMS/HCC) Not checking BS and due for A1C. [...] to General Surgery documented in this encounter [facility] 04-13-2024 Note Addendum created 04/25 by Rafael Hoyos MD Attestation recorded in Intraprocedure, Flowsheet accepted, Intraprocedure Attestations filed [facility] 03-09-2024 History of Presen t illness [...] losartan to BID. documented in this encounter [facility] 03-02-2024 Telephone encounter Note Patient called states her bp has been running high on the diastolic number, between 85-100 regularly, and was inquiring if she needed a med. [facility] 03-02-2024 Miscellaneous Notes Patient called states her bp has been running high on the diastolic number, between 85-100 regularly, and was inquiring if she needed a med. documented in this encounter [facility] 02-07-2024 Note Attestation signed by Isabel Carrillo [...] past 36 hour(s)). No follow-ups on file. [facility] 02-07-2024 Note Subjective Patient ID: Fatuma [...] past 36 hour(s)). No follow-ups on file. [facility] 02-01-2024 History of Presen t illness [...] 68 y.o. female who presents for Follow-up ([facility] f/up surgery/). Hospital follow up from 01/26-01/27 for incarcerated hernia. Developed sudden onset of RLQ abdominal pain. Severe pain in abdomen and radiated to back. Developed nausea and emesis. To ER and CT showed incarcerated hernia with SBO. No surgery available and transferred to [facility]. Taken to OR for repair and bowel [...] 0.5 % cream documented in this encounter [facility] 01-28-2024 Note 01/28/24 [id number] Admission Assessment Questions Verify insurance with patient [...] Status Interested Does the patient have a child support case officer assigned to them through their insurance? No Living Arrangement (Current/Prior to Hospitalization) Private residence (Home, 1st floor apartment with 5 steps to enter.) Does the patient have history of HHC or SNF? Yes (HHC: When living in [place].) Assistive Device Walker;Cane Patient's goal for discharge [...] you able to send link and activate [employer]? Yes (Patient states she already received a link to sign up already.) [facility] 01-28-2024 Note Patient: Fatuma mcguire Procedure Summary Date: 01/27/24 Room / Location: [facility] OPERATING ROOM 04 / [facility] Operating Room Anesthesia Start: 2355 Anesthesia Stop: 01/28/24199 Procedure: REPAIR, HERNIA, LAPAROSCOPIC (Right) Diagnosis: (HERNIA) [...] per anesthesia protocol. No notable events documented. [facility] 01-28-2024 Note Airway Date/Time: 01/28/2024 12:00 AM Urgency: elective Airway not difficult General Information and Staff Patient location during procedure: OR Anesthesiologist: Rafael Hoyos MD Resident/INSIDE SALES SPECIALIST/CAA: Raul Pascal MD Performed: resident/INSIDE SALES SPECIALIST/CAA Indications and Patient Condition Indications for airway [...] 1 Number of other approaches attempted: 0 [facility] 01-27-2024 Note Patient: Fatuma mcguire Procedure Information Date/Time: 01/27/242209 Procedure: REPAIR, HERNIA, LAPAROSCOPIC POSSIBLE OPEN (Right) Location: [facility] OPERATING ROOM 04 / [facility] Operating Room Surgeons: Shelley Munoz MD [...] Plan discussed with resident. Additional Equipment Requests [facility] Evaluation + Plan note No data available for this section [facility] General Surgery [place] Evaluation note Diagnosis Hypokalemia- Primary Hypopotassemia Primary [...] hyperglycemia, without long-term current use of insulin (CMS/[facility])- Primary Benign hypertension (CMS/HCC) Essential hypertension, benign Generalized anxiety disorder (CMS/HCC) Generalized anxiety disorder Degenerative cervical spinal stenosis Spinal stenosis in cervical region DDD (degenerative disc disease), lumbar Degeneration of lumbar or lumbosacral intervertebral disc Primary insomnia Persistent disorder of initiating or maintaining sleep Screening mammogram for breast cancer Type 2 diabetes mellitus with hyperglycemia, without long-term current use of insulin (CMS/[facility])- Primary Benign hypertension (CMS/HCC) Essential hypertension, benign Acquired hypothyroidism (CMS/HCC) Unspecified hypothyroidism Primary insomnia Persistent disorder of initiating or maintaining sleep DDD (degenerative disc disease), lumbar Degeneration of lumbar or lumbosacral intervertebral disc Degenerative cervical spinal stenosis Spinal stenosis in cervical region Encounter for long-term current use of medication Dyslipidemia (/[facility]) Other and unspecified hyperlipidemia Colon cancer screening [...] hyperglycemia, without long-term current use of insulin (/HCC)- Primary Benign hypertension (CMS/HCC) Essential hypertension, benign [...] in this encounter [facility]* Diagnosis Chronic pain of both [...] Unspecified essential hypertension documented in this encounter [facility]* Diagnosis Type 2 diabetes mellitus [...] or maintaining sleep documented in this encounter [facility] note* Diagnosis Type 2 diabetes mellitus [...] or maintaining sleep documented in this encounter [facility] Discharge instructions No data available for this section [facility] General Surgery [place] Progress note No data available for this section [facility] General Surgery [place] Summary Purpose Family History No Family History Records FoundNo Family History Records FoundNo Family History Records Found No data available for this section No Family History Records Found Advance Directives No Advanced Directives Records FoundNo Advanced Directives Records FoundNo Advanced Directives Records FoundNo Advanced Directives Records Found Additional Source Comments INFORMATION SOURCE (unrecogn ized section and content) DATE CREATED AUTHOR 10/09/2022 [facility] DATE CREATED AUTHOR AUTHOR'S ORGANIZ ATION 03/11/2024 [facility] EPIC DATE CREATED AUTHOR AUTHOR'S ORGANIZ ATION 04/16/2024 [facility] DATE CREATED AUTHOR AUTHOR'S ORGANIZ ATION 06/09/2024 [facility] Reason for Visit (unrecogniz ed section and content) Reason Onset Date Comments Med Refill 06/14/2023 Reason Comments Follow-up [facility] f/up surgery Reason Comments Follow-up Blood pressure high Reason Comments Med Refill Reason Onset Date Comments Med Refill 05/01/2024 Reason Comments Follow-up Right side painBalan ce issues Reason Comments New Med Request Reason Onset Date Comments Med Refill 05/30/2024 Care Teams (unrecognized sec tion and content) Rail Director Relationship Specialty Start Date End Date Mikey Singh MD PCP - General Family Medicine 11/13/22 Rail Director Relationship Specialty Start Date End Date Mikey Singh MD PCP - General Family Medicine 11/13/22 Rail Director Relationship Specialty Start Date End Date Mikey Singh MD [address] [place] [address] PCP - General Family Medicine 11/25/23 Rail Director Relationship Specialty Start Date End Date Mikey Singh MD [address] [place] [address] PCP - General Family Medicine 11/25/23 Rail Director Relationship Specialty Start Date End Date Mikey Singh MD [address] [place] [address] PCP - General Family Medicine 11/25/23 Rail Director Relationship Specialty Start Date End Date Mikey Singh MD [address] [place] [phone] PCP - General Family Medicine 11/25/23 Rail Director Relationship Specialty Start Date End Date Mikey Singh MD [address] [place] [address] PCP - General Family Medicine 11/25/23 Rail Director Relationship Specialty Start Date End Date Mikey Singh MD [address] [place] [phone] PCP - General Family Medicine 11/25/23 Rail Director Relationship Specialty Start Date End Date Mikey Singh MD [address] [place] [phone] PCP - General Family Medicine 11/25/23 Rail Director Relationship Specialty Start Date End Date Mikey Singh MD [address] [place] [phone] PCP - General Family Medicine 11/25/23 Rail Director Relationship Specialty Start Date End Date Mikey Singh MD [address] [place] [address] PCP - General Family Medicine 11/25/23 Rail Director Relationship Specialty Start Date End Date Mikey Singh MD [address] [place] [address] PCP - General Family Medicine 11/25/23 Rail Director Relationship Specialty Start Date End Date Mikey Singh MD [address] [place] [phone] PCP - [facility] 11/25/23 Rail Director Relationship Specialty Start Date End Date Mikey Singh MD [address] [place] [phone] PCP - [facility] 11/25/23 Rail Director Relationship Specialty Start Date End Date Mikey Singh MD [address] [place] [address] PCP - [facility] 11/25/23 Rail Director Relationship Specialty Start Date End Date Mikey Singh MD [address] [place] [phone] PCP - [facility] 11/25/23 FOR RECORDS PERTAINING TO PATIENTS WHO [...] BE BASED ON THE PRIMARY CLINICAL RECORDS. [facility] [employer] [facility]. provides no warranty or guarantee of the accuracy or completeness of information in this document.
== END 2024-06-20 11:17 | disposition home or self-care (01) ==
LOC: PST 11:16
PROVIDERS: PCP Family Medicine; Visit Provider Surgery
DX: Z01.818 Encounter for other preprocedural examination (principal); Z86.0100 Personal history of colon polyps, unspecified

== ENCOUNTER 2024-06-28 06:46 | Day surgery (SDC) | payer MEDICARE, SELFPAY ==
--- NOTE | 2024-06-28 | OP_ITS ---
OPERATION DATE: 06/28/2024 PREOPERATIVE DIAGNOSIS: Personal history of colon polyps. POSTOPERATIVE DIAGNOSIS: Severe sigmoid diverticulosis. PROCEDURE: Colonoscopy to cecum. SURGEON: Douglas Carolina M.D. ANESTHESIA: Monitored anesthesia care. ESTIMATED BLOOD LOSS: Zero. INDICATIONS AND CONSENT: Patient is a 68-year-old female with a personal history of colon polyps. Indications, risks, benefits, alternatives of proceeding with colonoscopy were explained extensively to the patient, including the risks of bleeding, colon perforation or anesthetic complications. All of her questions were answered. Informed consent was obtained. PROCEDURE: Patient brought to the operating room, placed in the left lateral decubitus position. Monitored anesthesia care was provided. Rectal exam was performed which showed no masses or blood. The scope was inserted into the anal canal. Under direct visualization was advanced. With the aid of abdominal compression, it was advanced to the cecum where cecal markings were clearly identified. There was noted to be a good prep. Upon withdrawal of the scope, mucosal surfaces were carefully examined. There were no mass lesions or polyps. No inflammatory changes or ulcerations. There was severe sigmoid diverticulosis without inflammatory changes or scarring. There was some redundancy and tortuosity of the colon. The scope was retroflexed in the anal canal. There was no significant hemorrhoidal disease. The scope was then withdrawn. Patient tolerated procedure well, was sent to recovery room in good condition. Follow up screening colonoscopy should be in 10 years. CC: Mikey Preston M.D. MTDClint
--- OUTSIDE RECORDS SUMMARY | 2024-06-28 06:49 | XMS_ITS | CCD ---
Author Organization [facility] Inform ion Partnership [facility] Care Team Providers Care Photographic Editor Name Role Phone SAMANTHA, DR MIKEY Keith [...] Unavailable Mikey Singh MD Primary Care Provider Mikey Singh MD Primary Care Provider [phone] MIKEY SINGH Attending Unavailable NADERER, MIKEY Attending [...] Acids; Translations: [LISINOPRIL] Drug Allergy 5 [facility] Repository (2 sources) Penicillins; Translations: [PENICILLINS] Drug allergy (disorder) 5 [facility] Repository (3 sources) Verapamil; Translations: [VERAPAMIL] Drug Allergy 5 [facility] Repository (20 sources) Angiotensin-con verting enzyme inhibitor agent; Translations: [GURINDER INHIBITORS] Drug Allergy 4 Unknown [facility] Healthcare (20 sources) Influenza Vaccines Drug Allergy 4 Unknown [facility] Healthcare (20 sources) Lisinopril Propensity to adverse reactions 4 Cough [facility] Healthcare (20 sources) Nortriptyline; Translations: [nortriptyline] Drug Allergy 4 Unknown [facility] Healthcare (20 sources) Penicillins Drug Allergy 4 Unknown [facility] Healthcare (20 sources) Verapamil Drug Allergy 4 Other [facility] Healthcare (16 sources) Wound Dressing Adhesive Propensity to adverse reactions 4 [facility] Healthcare (2 sources) nickel; Translations: [NICKEL] Drug Allergy 4 Eruption of skin (disorder) [facility] Repository (1 source) ADHESIVE TAPE-SILICONES; Translations: [ADHESIVE TAPE-SILICONES] Propensity to adverse reactions to drug (disorder) [address] [facility] Repository (1 source) INFLUENZA A (H5N1) VIRUS VACCINE MONOVAL (18 YR +); Translations: [INFLUENZA A (H5N1) VIRUS VACCINE MONOVAL (18 YR +)] Propensity to adverse reactions to drug (disorder) [address] [facility] Repository (1 source) Lisinopril; Translations: [lisinopril] Drug Allergy Cough (finding) [facility] (2 sources) Penicillin; Translations: [penicillin] Drug Allergy unknown [facility] (2 sources) Influenza virus antigen (substance); Translations: [flu vaccines] Drug allergy unknown [facility] (1 source) Adhesive bandage; Translations: [Adhesive Bandage] Propensity to adverse reactions (disorder) [facility] Repository (1 source) Nortriptyline; Translations: [Pamelor] Drug Allergy [facility] Repository Medications Current Medications Medication Drug Class(es) [...] Ordered Start: 04-29-2023 take 1 tablet by [facility] twice daily carvedilol (Coreg) 25 MG [...] Start: 04-29-2023 take 1 capsule by mo [facility] twice daily celecoxib (CeleBREX) 200 MG capsule [...] Start: 04-29-2023 take 1 capsule by mo [facility] once daily FLUoxetine (PROzac) 20 MG capsule [...] 05-29-2024 Chronic Other aftercare (1 source) Other residential (current) drug therapy; Translations: [[facility]IOR LIVING CURRENT DRUG THERAPY] Onset: 09-19-2022 Episodic Other aftercare (5 sources) Patient encounter status; Translations: [Other long term care pharmacist (current) drug therapy] Onset: 11-25-2023 11-25-2023 Episodic [...] current use of drug therapy; Translations: [Other long term care pharmacist (current) drug therapy] Onset: 11-25-2023 11-25-2023 Episodic [...] for choosing us for your care. Normal [facility] MM TOMOSYNTHESIS SCREENING B Ion 06-06-2024 [place] [address] Mammography Report Signed Patient: FATUMA NANCE MR#: [id number] : 1955 Acct:[id number] Age/Sex: 68 / F ADM Date: 06/05/24 Loc: MAMMO Attending Dr: Mikey Singh M.D. Ordering Physician: Mikey Singh M.D. Results: Date of Service: 06/05/24 Follow Up: Procedure(s): MM tomosynthesis screening BI Accession Number(s): [id number] cc: Mikey Singh M.D. Patient Name: FATUMA NANCE MR#: [id number] : 1955 Exam Date: 06/05/2024 Ordering Doctor: [...] lung cancer at age 45. LOCATION: [facility] BREAST COMPOSITION: There are scattered areas [...] Signed By: 06/06/24 1608 DD/ 1607 TD/TT: Flame Brazing Machine Operator: [facility] Radiology, Radiologist, MD - 06/06/2024 [place] [address] Mammography Report Signed Patient: FATUMA NANCE MR#: [id number] : 1955 Acct:[id number] Age/Sex: 68 / F ADM Date: 06/05/24 Loc: MAMMO Attending Dr: Mikey Singh M.D. Ordering Physician: Mikey Singh M.D. Results: Date of Service: 06/05/24 Follow Up: Procedure(s): MM tomosynthesis screening BI Accession Number(s): [id number] cc: Mikey Singh M.D. Patient Name: FATUMA NANCE MR#: [id number] : 1955 Exam Date: 06/05/2024 Ordering Doctor: [...] lung cancer at age 45. LOCATION: [facility] BREAST COMPOSITION: There are scattered areas [...] Signed By: 06/06/24 1608 DD/ 1607 TD/TT: Flame Brazing Machine Operator: [facility] Radiology Study observation (narrative) [facility] MM TOMOSYNTHESIS SCREENING B IOrdered By: Radiologist Radiology on 06-06-2024 [facility] Work Phone: MLR HEMOGLOBIN A1Con 025 Glucose [Mass/Vol] 100 mg/dL [facility] HbA1c (Bld) [Mass fraction] 5.1 % 4.5 - 6.2 % [facility] Comment on above: ADA RECOMMENDED LIMI T 4.0 - 6.0 ADA THERAPEUTIC TARGET < 7.0 ACTION SUGGESTED > 7.0 [facility] 29on 02-07-2024 29 Addended by: ISABEL CARRILLO on: 03/01/2024 09:53 AM Modules accepted: Level of Service Normal [facility] Office Visiton 02-07-2024 Follow-up visit [id number] Fatuma Nance 1955 F Date Provider Department Center 02/07/2024 768-ISABEL CARRILLO [facility] SURG Second Fl No family history on file Level of Service:03814 ND OFFICE/OUTPATIENT ESTABLISHED SF MDM 10 MIN Reason for Visit and Comments: Post-op [483] - s/p lap repair of Spegelian hernia 01/[address] [facility] URINE CULTURE, ROUTINEon Bacteria identified Cx Nom (U) Urine Culture, Routine [facility] Healthcare Bacteria identified Cx Nom (U) Mixed urogenital chastity [facility] Healthcare Bacteria identified Cx Nom (U) 10,000-25,000 colony forming units per mL [facility] Healthcare Bacteria identified Cx Nom (U) Performed at: [facility] Healthcare Bacteria identified Cx Nom (U) [address] [place] [id number] [facility] Healthcare Bacteria identified Cx Nom (U) Deputy Sheriff K9 Handler: Juventino Mccullough PhD, Phone: [phone] [facility] 30on 01-28-2024 30 Daily Case Managemen t Update Multidisciplinary rounds have been completed. Barriers to Discharge: Patient is medically ready for discharge at this time. AVS has been completed. Daughter to provider transportation to home. Message sent for follow up appointment. No further OTM needs at this time. [facility] will continue to follow patient and [...] appropriate for patient?: Yes New Consults: Normal [facility] 30 The patient is Moderately Stable [...] and maintained or improved Outcome: Progressing Normal [facility] DSon 01-28-2024 DS Admission Admitted 01/27/2024 [...] Medications These medications were sent to [facility] - [place], [place] - [address] [place] [address], [facility] [address] ondansetron ODT 4 mg disintegrating tablet Activity [...] Glucose, Urine Negative Bilirubin, Urine Negative Specific Lane, Urine 1.024 (*) Ketones, Urine 20 (*) [...] for panel (more content not included)... Normal [facility] NURSNOTEon 01-28-2024 NURSNOTE Patient report given via phone to SABINE PIERCE Normal [facility] APTTon 01-27-2024 ACTIVATED PARTIAL THROMBOPLASTIN TIME IN PPP BY COAGULATION ASSAY 24.9 Seconds Low 25.0-35.[address] [facility] Comment on above: Result Comment: Clin ical significance of the APTT is questionable in the presence of heparin. Performed By: #### L [id number] #### [facility] (BEAKER) [address] [place] [address] Anesthesiaon 01-27-2024 Anesthesia [id number] Fatuma Nance 1955 F Date Provider Department Center 01/27/2024 RAUL STEWART [facility] OR MT Medical C No family history on file Normal [facility] BASIC METABOLIC PANELon 01-02 Anion gap [Moles/Vol] 15 mmol/L Normal 7-[address] [facility] Comment on above: Performed By: #### L [id number] ####[facility] (BEAKER)[address] [place] [address] Calcium [Mass/Vol] 8.6 mg/dL Normal 8.6-10.3 [facility] Comment on above: Performed By: #### L [id number] ####[facility] (BEAKER)[address] [place] [address] Chloride [Moles/Vol] 104 mmol/L Normal 98-107 [facility] Comment on above: Performed By: #### L [id number] ####[facility] (BEAKER)[address] [place] [address] CO2 [Moles/Vol] 23 mmol/L Normal 21-31 [facility] Comment on above: Performed By: #### L [id number] ####[facility] (BEAKER)[address] [place] [address] Creatinine [Mass/Vol] 0.61 mg/dL Normal 0.60-1.[address] [facility] Comment on above: Performed By: #### L [id number] ####[facility] (BEAKER)[address] [place] [address] GLOMERULAR FILTRATION RATE ML/MIN/1.73 SQ M.PREDICTED 97.3 mL/min/1.73m*2 Normal >60.0 [facility] Comment on above: Result Comment: [facility]???s estimated glomerular filtration rate (eGFR) will [...] of individuals. Performed By: #### L [id number] ####[facility] ([facility])[address] [facility] [address] Glucose [Mass/Vol] 95 mg/dL Normal 70-100 [facility] Comment on above: Performed By: #### L [id number] ####[facility] ([facility])[address] [place] [address] Potassium [Moles/Vol] 3.6 mmol/L Normal 3.5-5.[address] [facility] Comment on above: Performed By: #### L [id number] ####[facility] ([facility])[address] [facility] [address] Sodium [Moles/Vol] 138 mmol/L Normal 136-145 [facility] Comment on above: Performed By: #### L [id number] ####[facility] ([facility])[address] [facility] [address] Urea nitrogen [Mass/Vol] 8 mg/dL Normal 7-[address] [facility] Comment on above: Performed By: #### L [id number] ####[facility] ([facility])[address] [place] [address] UREA NITROGEN/CREATININE (MASS RATIO) IN SER/PLAS 13.[address] [facility] Comment on above: Performed By: #### L [id number] ####[facility] ([facility])[address] [place] [address] CBC WITH AUTO DIFFERENTIALon 01-27-2024 Basophils (Bld) [#/Vol] 0.03 10*3/uL Normal 0.00-0.[address] [facility] Comment on above: Performed By: #### L [id number] #### [facility] (BEAKER) [address] [place] [address] Basophils/100 WBC (Bld) 0.3 % Normal 0.0-1.[address] [facility] Comment on above: Performed By: #### L [id number] #### [facility] (BEAKER) [address] [place] [address] Eosinophils (Bld) [#/Vol] 0.04 10*3/uL Normal 0.00-0.[address] [facility] Comment on above: Performed By: #### L [id number] #### [facility] (BEAKER) [address] [place] [address] Eosinophils/100 WBC (Bld) 0.3 % Normal 0.0-6.[address] [facility] Comment on above: Performed By: #### L [id number] #### [facility] ([facility] [address] [place] [address] Erythrocyte distribution width (RBC) [Ratio] 13.6 % Normal 11.5-15.[address] [facility] Comment on above: Performed By: #### L [id number] #### [facility] ([facility]) [address] [place] [address] ERYTHROCYTE MEAN CORPUSCULAR HEMOGLOBIN CONCENTRATION (G/DL) BY AUTOMATED 34.1 g/dL Normal 32.0-35.[address] [facility] Comment on above: Performed By: #### L [id number] #### [facility] (BEAKER) [address] [place] [address] Hematocrit (Bld) [Volume fraction] 42.8 % Normal 36.0-48.[address] [facility] Comment on above: Performed By: #### L [id number] #### [facility] ([facility]AKER) [address] [place] [address] Hemoglobin (Bld) [Mass/Vol] 14.6 g/dL Normal 12.0-15.[address] [facility] Comment on above: Performed By: #### L [id number] #### [facility] (BE[facility]ER) [address] [place] [address] Immature granulocytes (Bld) [#/Vol] 0.04 10*3/uL Normal 0.00-0.[address] [facility] Comment on above: Performed By: #### L [id number] #### [facility] (BEAKER) [address] [place] [address] Immature granulocytes/100 WBC (Bld) 0.3 % Normal 0.0-1.[address] [facility] Comment on above: Performed By: #### L [id number] #### [facility] ([facility]ER) [address] [address] Lymphocytes (Bld) [#/Vol] 1.30 10*3/uL Normal 1.20-4.[address] [facility] Comment on above: Performed By: #### L [id number] #### [facility] ([facility]ER) [address] [address] Lymphocytes/100 WBC (Bld) 11.2 % Low 20.0-45.[address] [facility] Comment on above: Performed By: #### L [id number] #### [facility] ([facility]ER) [address] [place] [address] MCH (RBC) [Entitic mass] 28.9 pg Normal 27.0-33.[address] [facility] Comment on above: Performed By: #### L [id number] #### [facility] (BE[facility]ER) [address] [address] MCV (RBC) [Entitic vol] 84.8 fL Normal 82.0-98.[address] [facility] Comment on above: Performed By: #### L [id number] #### [facility] ([facility]ER) [address] [place] [address] Monocytes (Bld) [#/Vol] 0.61 10*3/uL Normal 0.10-1.[address] [facility] Comment on above: Performed By: #### L [id number] #### [facility] ([facility]ER) [address] [place] [address] Monocytes/100 WBC (Bld) 5.3 % Normal 5.0-12.[address] [facility] Comment on above: Performed By: #### L [id number] #### [facility] [address] [place] [address] Neutrophils (Bld) [#/Vol] 9.57 10*3/uL High 1.60-7.[address] [facility] Comment on above: Performed By: #### L [id number] #### [facility] ([facility]) [address] [place] [address] Neutrophils/100 WBC (Bld) 82.6 % High 40.0-72.[address] [facility] Comment on above: Performed By: #### L [id number] #### [facility] ([facility]) [address] [place] [address] NRBC (PER 100 WBCS) BY AUTOMATED COUNT 0.0 % Normal [address] [facility] Comment on above: Performed By: #### L [id number] #### [facility] ([facility]) [address] [place] [address] PLATELETS (10*3/UL) IN BLOOD AUTOMATED COUNT 213 10*3/uL Normal 150-[address] [facility] Comment on above: Performed By: #### L [id number] #### [facility] [address] [place] [address] RBC (Bld) [#/Vol] 5.05 10*6/uL High 3.80-5.00 [facility] Comment on above: Performed By: #### L [id number] #### [facility] [address] [place] [address] WBC (Bld) [#/Vol] 11.59 10*3/uL High 4.00-10.60 [facility] Comment on above: Performed By: #### L [id number] #### [facility] ([facility]AKER) [address] [place] [address] CT ABDOMEN PELVIS W IV CONTR oJhn 01-27-2024 CT ABDOMEN PELVIS W IV CONTRAST [...] obtained. Electronically signed: FITO MCDERMOTT MD. Normal [facility] EDNURSon 01-27-2024 EDNURS Mode of arrival (squ ad #, walk in, police, etc): SEMS Chief complaint(s): Abdominal pain Arrival Note (brief scenario, treatment [employer], etc): Pt is a transfer from [place] for a hernia with possible incarceration. Pt arrives with 20g IV and NG in R nostril at 55cm. Pt alert and oriented on arrival. [facility] EDPROVon 01-27-2024 EDPROV HPI Chief Complaint Patient [...] in the past. Pt was transferred from [place] due to finding of incarcerated abd hernia. [...] Glucose, Urine Negative Bilirubin, Urine Negative Specific Lane, Urine 1.024 (*) Ketones, Urine 20 (*) [...] Procedure Abnormality Status --------- ------ CBC auto differential[[id number]] Abnormal Final result Please view results for these tests on the individual orders. Radiology: CT abdom (more content not included)... Normal [facility] HEPATIC FUNCTION PANELon Albumin [Mass/Vol] 3.7 g/dL Normal 3.5-5.7 [facility] Comment on above: Performed By: #### L [id number] #### [facility] ([facility]) [address] [place] [address] ALP [Catalytic activity/Vol] 48 U/L Normal 34-[address] [facility] Comment on above: Performed By: #### L [id number] #### [facility] ([facility]) [address] [place] [address] ALT [Catalytic activity/Vol] 11 U/L Normal 7-[address] [facility] Comment on above: Performed By: #### L [id number] #### [facility] ([facility]) [address] [place] [address] AST [Catalytic activity/Vol] 16 U/L Normal 13-[address] [facility] Comment on above: Performed By: #### L [id number] #### [facility] ([facility]) [address] [place] [address] Bilirubin [Mass/Vol] 0.5 mg/dL Normal 0.3-1.0 [facility] Comment on above: Performed By: #### L [id number] #### [facility] ([facility]) [address] [place] [address] Magnesium [Mass/Vol] 0.1 mg/dL Normal 0-0.2 [facility] Comment on above: Performed By: #### L [id number] #### [facility] ([facility]) [address] [place] [address] Protein [Mass/Vol] 6.3 g/dL Normal 6.0-8.[address] [facility] Comment on above: Performed By: #### L [id number] #### [facility] (PARKER) [address] [place] [address] HPon 01-27-2024 HP History Of Present Illness Fatuma Nance is a 68 y.o. 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 Patient [...] female pat (more content not included)... Normal [facility] LACTIC ACID WITH 4 HOUR REFL EXon 01-27-2024 LACTATE (MMOL/L) IN SER/PLAS 1.3 mmol/L Normal 0.5-2.[address] [facility] Comment on above: Performed By: #### L [id number] #### [facility] (BEAKER) [address] [place] [address] MAGNESIUMon 01-27-2024 Magnesium [Mass/Vol] 1.3 mg/dL Low 1.9-2.7 [facility] Comment on above: Performed By: #### L [id number] ####[facility] (BEAKER)[address] [place] [address] OPNOTEon 01-27-2024 OPNOTE REPAIR, HERNIA, LAPAROSCOPIC (R) Operative Note Date: 01/27/2024 - 01/28/2024 Location: [facility] OR Name: Fatuma Nance, : 1955, [...] Urethral Catheter Non-latex 16 Fr. (Active) Staff: Technical Supervisor: Shi Wolf RN Relief Technical Supervisor: Ahsa Mohr RN Scrub Person: Sofia Lawrence, RENETTA Accessibility Lift Technician: Raphael Blackman CSA Indications: Fatuma Nance is [...] PACU - hemodynamically stable. Condition: stable Shelley MalagonIrving Normal [facility] PROTIME-INRon 01-27-2024 INR IN PPP BY COAGULATION ASSAY 1.10 Normal 0.90-1.[address] [facility] Comment on above: Result Comment: ACCC [...] 1995;108:[id number]. Performed By: #### L [id number] #### [facility] ([facility]) [address] [place] [address] PROTHROMBIN TIME (PT) IN PPP BY COAGULATION ASSAY 14.2 Seconds Normal 12.3-14.[address] [facility] Comment on above: Performed By: #### L [id number] #### [facility] ([facility]) [address] [address] TYPE AND SCREENon 01-27-2024 AB SCREEN Negative Normal [facility] Comment on above: Performed By: #### L [id number] #### [facility] BLOOD BANK , ABO group Nom (Bld) A Normal [facility] Comment on above: Performed By: #### L [id number] #### [facility]OD [facility] , RH TYPE IN BLOOD Positive Normal [facility] Comment on above: Performed By: #### L [id number] #### [facility] B[facility]OD [facility] , URINALYSISon 01-27-2024 BILIRUBIN, TOTAL PRESENCE IN URINE Negative Normal Negative [facility] Comment on above: Order Comment: Micro scopics not performed on urines with negative chemical reactions unless requested on original order. Performed By: #### L [id number] #### [facility] ([facility]AKER) [address] [place] [address] Clarity (U) Clear Normal Clear [facility] Comment on above: Order Comment: Micro scopics not performed on urines with negative chemical reactions unless requested on original order. Performed By: #### L [id number] #### [facility] (BEAKER) [address] [address] Color (U) Straw Abnormal Yellow [facility] Comment on above: Order Comment: Micro scopics not performed on urines with negative chemical reactions unless requested on original order. Performed By: #### L [id number] #### [facility] ([facility]) [address] [place] [address] Glucose (U) [Mass/Vol] Negative Normal Negative [facility] Comment on above: Order Comment: Micro scopics not performed on urines with negative chemical reactions unless requested on original order. Performed By: #### L [id number] #### [facility] ([facility]) [address] [place] [address] HEMOGLOBIN PRESENCE IN URINE Negative Normal Negative [facility] Comment on above: Order Comment: Micro scopics not performed on urines with negative chemical reactions unless requested on original order. Performed By: #### L [id number] #### [facility] ([facility]) [address] [place] [address] Ketones Ql (U) 20 mg/dL Abnormal Negative [facility] Comment on above: Order Comment: Micro scopics not performed on urines with negative chemical reactions unless requested on original order. Performed By: #### L [id number] #### [facility] ([facility]) [address] [place] [address] LEUKOCYTE ESTERASE PRESENCE IN URINE BY TEST STRIP Negative Normal Negative [facility] Comment on above: Order Comment: Micro scopics not performed on urines with negative chemical reactions unless requested on original order. Performed By: #### L [id number] #### [facility] ([facility]) [address] [place] [address] NITRITE PRESENCE IN URINE Negative Normal Negative [facility] Comment on above: Order Comment: Micro scopics not performed on urines with negative chemical reactions unless requested on original order. Performed By: #### L [id number] #### [facility] ([facility]) [address] [place] [address] pH (U) 7.0 [pH] Normal 5.0-8.[address] [facility] Comment on above: Order Comment: Micro scopics not performed on urines with negative chemical reactions unless requested on original order. Performed By: #### L [id number] #### [facility] (BEAKER) [address] [place] [address] Protein (U) [Mass/Vol] Negative Normal Negative [facility] Comment on above: Order Comment: Micro scopics not performed on urines with negative chemical reactions unless requested on original order. Performed By: #### L [id number] #### [facility] ([facility]) [address] [place] [address] Specific gravity (U) [Rel density] 1.024 High 1.015-1.[address] [facility] Comment on above: Order Comment: Micro scopics not performed on urines with negative chemical reactions unless requested on original order. Performed By: #### L [id number] #### [facility] ([facility]) [address] [place] [address] ALL BASIC METABOLIC PANELon 06-15-2023 Anion gap [Moles/Vol] 11.2 mmol/L [facility] Calcium [Mass/Vol] 9.0 mg/dL 8.5 - 10. 1 mg/dL [facility] Chloride [Moles/Vol] 102 mmol/L 98 - 10 7 mmol/L [facility] CO2 [Moles/Vol] 28.3 mmol/L 21.0 - 32.0 mmol/L [facility] Creatinine [Mass/Vol] 0.85 mg/dL 0.55 - 1.02 mg/dL [facility] GFR/1.73 sq M.predicted CKD-EPI (S/P/Bld) [Vol rate/Area] >60 60 - PINF [facility] Healthcare Glucose [Mass/Vol] 105 mg/dL 74 - 106 mg/dL [facility] Potassium [Moles/Vol] 4.5 mmol/L 3.5 - 5.1 mmol/L [facility] Sodium [Moles/Vol] 137 mmol/L 136 - 145 mmol/L [facility] TBH EGFR-NON AF [place] >60 60 - PINF [facility] Urea nitrogen [Mass/Vol] 13.0 mg/dL 7.0 - 18.0 mg/dL [facility] Urea nitrogen/Creatinine [Mass ratio] 15.3 mg/mg [facility] CLINISYNC [facility] MRI CSPINE WO CONon 09-26-19 MRI [...] by: SUNNY VIRAMONTES Date: 2022-09-25 12:52 Normal [facility] MRI PINE WO CONon 09-26-19 MRI [...] SUNNY VIRAMONTES Date: 2022-09-25 12:04 Normal [facility] CBC AUTO DIFFon 09-17-2022 BASO # 0.0 103/ul Normal 0.0-0.1 [facility] Comment on above: Performed By: #### C BC ####[facility] [address] [place], [place] [address]Dr. Paola Moreno Basophils/100 WBC (Bld) 0.4 % Normal 0.2-2.0 [facility] Comment on above: Performed By: #### C BC ####[facility] [address] [place] [address]DrLeah Moreno EO # 0.2 103/ul Normal 0.0-0.7 [facility] Comment on above: Performed By: #### C BC ####[facility] [address] [place] [address]DrLeah Moreno Eosinophils/100 WBC (Bld) 2.9 % Normal 0.9-7.0 [facility] Comment on above: Performed By: #### C BC ####[facility] [address] [place] [address]DrLeah Moreno Erythrocyte distribution width (RBC) [Ratio] 13.6 % Normal 11.0-15.0 [facility] Comment on above: Performed By: #### C BC ####[facility] [address] [place] [address]Dr. Paola Moreno Hematocrit (Bld) [Volume fraction] 44.1 % Normal 36.0-48.0 [facility] Comment on above: Performed By: #### C BC ####[facility] [address] [place] [address]DrLeah Paola Moreno Hemoglobin (Bld) [Mass/Vol] 14.6 g/dL Normal 12.0-16.0 [facility] Comment on above: Performed By: #### C BC ####[facility] [address] [place], [place] [address]DrLeah Paola Moreno IG # 0.03 10e3/ul Normal 0.00-0.03 [facility] Comment on above: Performed By: #### C BC ####[facility] [address] [place], [place] [address]Dr. Aliyahromy Moreno IG % 0.4 % Normal 0.0-0.5 [facility] Comment on above: Performed By: #### C BC ####[facility] [address] [place], [place] [address]DrLeah Paola Moreno LYMPH # 1.4 103/ul Normal 1.2-3.8 [facility] Comment on above: Performed By: #### C BC ####[facility] [address] [place], [place] [address]DrLeah Aliyahromy Moreno Lymphocytes/100 WBC (Bld) 17.2 % Critically low 20.5-60.0 [facility] Comment on above: Performed By: #### C BC ####[facility] [address] [place], [place] [address]DrLeah Aliyahromy Moreno MANUAL DIFF REQ NO Normal [facility] Comment on above: Performed By: #### C BC ####[facility] [address] [place], [place] [address]DrLeah Moreno MCH (RBC) [Entitic mass] 29.6 pg Normal 26.7-34.0 [facility] Comment on above: Performed By: #### C BC ####[facility] [address] [place] [address]Dr. Paola Moreno MCHC (RBC) [Mass/Vol] 33.1 g/dL Normal 29.9-35.2 [facility] Comment on above: Performed By: #### C BC ####[facility] [address] [place], [place] [address]DrLeah Moreno MCV (RBC) [Entitic vol] 89.3 fL Normal 81.0-99.0 [facility] Comment on above: Performed By: #### C BC ####[facility] [address] [place], [place] [address]DrLeah Moreno MONO # 0.7 103/ul Normal 0.3-0.8 [facility] Comment on above: Performed By: #### C BC ####[facility] [address] [place], [place] [address]Dr. Paola Moreno Monocytes/100 WBC (Bld) 7.8 % Normal 1.7-12.0 [facility] Comment on above: Performed By: #### C BC ####[facility] [address] [place], [place] [address]DrLeah Moreno NEUT # 6.0 103/ul Normal 1.4-6.5 [facility] Comment on above: Performed By: #### C BC ####[facility] [address] [place], [place] [address]DrLeah Moreno Neutrophils/100 WBC (Bld) 71.3 % Normal 43.0-75.0 [facility] Comment on above: Performed By: #### C BC ####[facility] [address] [place], [place] [address]DrLeah Moreno Platelet mean volume (Bld) [Entitic vol] 10.6 fL Normal 9.5-13.5 [facility] Comment on above: Performed By: #### C BC ####[facility] [address] [place], [place] [address]Dr. Paola Moreno PLT 191 103/ul Normal 150-450 [facility] Comment on above: Performed By: #### C BC ####[facility] [address] [place] [address]Dr. Paola Moreno RBC 4.94 106/ul Normal 4.20-5.40 [facility] Comment on above: Performed By: #### C BC ####[facility] [address] [place] [address]Dr. Paola Moreno WBC 8.4 103/ul Normal 4.0-11.0 [facility] Comment on above: Performed By: #### C BC ####[facility] [address] [place] [address]DrLeah Moreno FREE T3on 09-17-2022 FREE T3 2.55 pg/mlL Normal 2.18-3.98 [facility] Comment on above: Performed By: #### T SH, LIPID, BMP, LIVER, FT3 #### [facility] [address] [place] [address] [address] Paola Moreno FREE T4on 09-17-2022 Free T4 [Mass/Vol] 0.84 ng/dL Normal 0.76-1.46 [facility] Comment on above: Performed By: #### F T4 #### [facility] [address] [place] [address] [address] Paola Moreno GLYCOHEMOGLOBIN A1Con 2022 ADA RECOMMENDATION SEE BELOW Normal [facility] Comment on above: Result Comment: ADA RECOMMENDED LIMIT 4.0 - 6.0 ADA THERAPEUTIC TARGET < 7.0 ACTION SUGGESTED > 7.0 Performed By: #### A 1C #### [facility] [address] [address] [address] Paola Moreno Glucose [Mass/Vol] 85 mg/dL Normal [facility] Comment on above: Performed By: #### A 1C #### [facility] [address] [address] [address] Paola Moreno HbA1c (Bld) [Mass fraction] 4.6 % Normal 4.5-6.2 [facility] Comment on above: Performed By: #### A 1C #### [facility] [address] [address] [address] Paola Moreno LIPID PROFILEon 09-17-2022 CHOL-HDL RATIO NORM SEE BELOW Normal [facility] Comment on above: Result Comment: 3.3 - 4.4 LOW RISK 4.4 - 7.1 AVERAGE RISK 7.1 - 11.0 MODERATE RISK >11.0 HIGH RISK Performed By: #### T SH, LIPID, BMP, LIVER, FT3 #### [facility] [address] [address] [address] Paola Moreno Cholesterol [Mass/Vol] 162 mg/dL Normal <=200 [facility] Comment on above: Performed By: #### T SH, LIPID, BMP, LIVER, FT3 #### [facility] [address] [address] [address] Paola Moreno Cholesterol in HDL [Mass/Vol] 88 mg/dL Critically high 40-60 [facility] Comment on above: Performed By: #### T SH, LIPID, BMP, LIVER, FT3 #### [facility] [address] [address] [address] Paola Moreno Cholesterol in LDL [Mass/Vol] 38.2 mg/dL Normal [facility] Comment on above: Performed By: #### T SH, LIPID, BMP, LIVER, FT3 #### [facility] [address] [address] [address] Paola Moreno Cholesterol.total/Ch olesterol in HDL [Mass ratio] 1.8 {ratio} Normal [facility] Comment on above: Performed By: #### T SH, LIPID, BMP, LIVER, FT3 #### [facility] [address] [address] [address] Paola Moreno HDL NORMAL > or = 60 mg/dl - LO W CARDIOVASCULAR RISK <40 mg/dl - HIGH CARDIOVASCULAR RISK Normal [facility] Comment on above: Performed By: #### T SH, LIPID, BMP, LIVER, FT3 #### [facility] [address] [address] [address] Paola Moreno LDL CALC NORMAL SEE BELOW Normal [facility] Comment on above: Result Comment: <100 mg/dl OPTIMAL 100 - 129 mg/dl NEAR OR ABOVE OPTIMAL 130 - 159 mg/dl BORDERLINE HIGH 160 - 189 mg/dl HIGH >190 mg/dl VERY HIGH Performed By: #### T SH, LIPID, BMP, LIVER, FT3 #### [facility] [address] [address] [address] Paola Moreno Triglyceride [Mass/Vol] 179 mg/dL Critically high <=150 [facility] Comment on above: Performed By: #### T SH, LIPID, BMP, LIVER, FT3 #### [facility] [address] [address] [address] Paola Moreno VLDL CALC 35.8 mg/dL Normal [facility] Comment on above: Performed By: #### T SH, LIPID, BMP, LIVER, FT3 #### [facility] [address] [place] [address] Dr. Paola Moreno LIVER PROFILEon 09-17-2022 Albumin [Mass/Vol] 3.3 g/dL Critically low 3.4-5.0 Th [facility] Comment on above: Performed By: #### T SH, LIPID, BMP, LIVER, FT3 #### [facility] [address] [place] [address] Dr. Paola Moreno Albumin/Globulin [Mass ratio] 0.8 {ratio} Normal [facility] Comment on above: Performed By: #### T SH, LIPID, BMP, LIVER, FT3 #### [facility] [address] [place] [address] Dr. Paola Moreno ALP [Catalytic activity/Vol] 69 U/L Normal 46-116 [facility] Comment on above: Performed By: #### T SH, LIPID, BMP, LIVER, FT3 #### [facility] [address] [place] [address] Dr. Paola Moreno ALT [Catalytic activity/Vol] 24 U/L Normal 14-59 [facility] Comment on above: Performed By: #### T SH, LIPID, BMP, LIVER, FT3 #### [facility] [address] [place] [address] Dr. Paola Moreno AST [Catalytic activity/Vol] 20 U/L Normal 15-37 [facility] Comment on above: Performed By: #### T SH, LIPID, BMP, LIVER, FT3 #### [facility] [address] [address] [address] Paola Moreno BILI, CONJUGATED 0.1 mg/dL Normal 0.0-0.2 [facility] Comment on above: Performed By: #### T SH, LIPID, BMP, LIVER, FT3 #### [facility] [address] [place] [address] Dr. Paola Moreno Bilirubin [Mass/Vol] 0.4 mg/dL Normal 0.2-1.0 [facility] Comment on above: Performed By: #### T SH, LIPID, BMP, LIVER, FT3 #### [facility] [address] [place] [address] Dr. Paola Moreno Globulin (S) [Mass/Vol] 4.0 g/dL Normal [facility] Comment on above: Performed By: #### T SH, LIPID, BMP, LIVER, FT3 #### [facility] [address] [place] [address] Dr. Paola Moreno Protein [Mass/Vol] 7.3 g/dL Normal 6.4-8.2 [facility] Comment on above: Performed By: #### T SH, LIPID, BMP, LIVER, FT3 #### [facility] [address] [place] [address] Dr. Paola Moreno PROF CHEM 8 (BAS METB)on Anion gap [Moles/Vol] 11.8 mmol/L Normal [facility] Comment on above: Performed By: #### T SH, LIPID, BMP, LIVER, FT3 #### [facility] [address] [place] [address] Dr. Paola Moreno Calcium [Mass/Vol] 9.0 mg/dL Normal 8.5-10.1 [facility] Comment on above: Performed By: #### T SH, LIPID, BMP, LIVER, FT3 #### [facility] [address] [place] [address] Dr. Paola Moreno Chloride [Moles/Vol] 103 mmol/L Normal 98-107 [facility] Comment on above: Performed By: #### T SH, LIPID, BMP, LIVER, FT3 #### [facility] [address] [address] [address] Paola Moreno CO2 [Moles/Vol] 30.5 mmol/L Normal 21.0-32.0 [facility] Comment on above: Performed By: #### T SH, LIPID, BMP, LIVER, FT3 #### [facility] [address] [address] [address] Paola Moreno Creatinine [Mass/Vol] 0.83 mg/dL Normal 0.55-1.02 [facility] Comment on above: Performed By: #### T SH, LIPID, BMP, LIVER, FT3 #### [facility] [address] [place] [address] Dr. Paola Moreno EGFR-AF [place] >60 Normal >=60 [facility] Comment on above: Performed By: #### T SH, LIPID, BMP, LIVER, FT3 #### [facility] [address] [address] [address] Paola Moreno EGFR-NON AF [place] >60 Normal >=60 [facility] Comment on above: Performed By: #### T SH, LIPID, BMP, LIVER, FT3 #### [facility] [address] [address] [address] Paola Moreno Glucose [Mass/Vol] 122 mg/dL Critically high 74-106 [facility] Comment on above: Performed By: #### T SH, LIPID, BMP, LIVER, FT3 #### [facility] [address] [address] [address] Paola Moreno Potassium [Moles/Vol] 4.3 mmol/L Normal 3.5-5.1 [facility] Comment on above: Performed By: #### T SH, LIPID, BMP, LIVER, FT3 #### [facility] [address] [address] [address] Paola Moreno Sodium [Moles/Vol] 141 mmol/L Normal 136-145 [facility] Comment on above: Performed By: #### T SH, LIPID, BMP, LIVER, FT3 #### [facility] [address] [address] [address] Paola Moreno Urea nitrogen [Mass/Vol] 12.0 mg/dL Normal 7.0-18.0 [facility] Comment on above: Performed By: #### T SH, LIPID, BMP, LIVER, FT3 #### [facility] [address] [address] [address] Paola Moreno Urea nitrogen/Creatinine [Mass ratio] 14.5 mg/mg Normal [facility] Comment on above: Performed By: #### T SH, LIPID, BMP, LIVER, FT3 #### [facility] [address] [address] [address] Paola Moreno TSHon 09-17-2022 TSH 3.671 uIU/mL Normal 0.358-3.740 [facility] Comment on above: Performed By: #### T SH, LIPID, BMP, LIVER, FT3 #### [facility] [address] [address] [address] Paola Moreno XR WRIST RT MIN 3 Von 2022 XR WRIST RT MIN 3 V EXAM: XR WRIST RT PA N 3 V HISTORY: Pain of right [...] GUMARO GUEVARA Date: 2022-09-17 12:41 Normal [facility] Vital Signs Date Time Vital Sign Value Performing Clinician Facility 06-07-2024 14:15-0500 Blood Pressure Location Douglas NGUYEN [facility] 06-07-2024 14:15-0500 Diastolic blood pressure 82 mm[Hg] Douglas [facility]GER[facility] 06-07-2024 14:15-0500 Heart rate 72 /min Douglas NGUYEN [facility] 06-07-2024 14:15-0500 Respiratory rate 16 /min Douglas NGUYEN [facility] 06-07-2024 14:15-0500 Systolic blood pressure 122 mm[Hg] Douglas [facility]GER[facility] 05-26-2024 10:02-0500 Body height 160 cm Mikey Singh MD Work Phone: [facility] 05-26-2024 10:02-0500 Body mass index (BMI) [Ratio] 32.06 kg/m2 Mikey Singh MD Work Phone: [facility] 05-26-2024 10:02-0500 Body temperature 97.3 [degF] Mikey Singh MD Work Phone: [facility] 05-26-2024 10:02-0500 Body weight 82.1 kg Mikey Singh MD Work Phone: [facility] 05-26-2024 10:02-0500 Diastolic blood pressure 80 mm[Hg] Mikey Singh MD Work Phone: [facility] 05-26-2024 10:02-0500 Heart rate 63 /min Mikey Singh MD Work Phone: [facility] 05-26-2024 10:02-0500 Respiratory rate 22 /min Mikey Singh MD Work Phone: [facility] 05-26-2024 10:02-0500 SaO2% (BldA) [Mass fraction] 98 % Mikey Singh MD Work Phone: [facility] 05-26-2024 10:02-0500 Systolic blood pressure 140 mm[Hg] Mikey Singh MD Work Phone: [facility] 03-09-2024 11:56-0500 Body height 160 cm Mikey Singh MD Work Phone: [facility] 03-09-2024 11:56-0500 Body mass index (BMI) [Ratio] 33.13 kg/m2 Mikey Singh MD Work Phone: [facility] 03-09-2024 11:56-0500 Body temperature 97.59 [degF] Mikey Singh MD Work Phone: [facility] 03-09-2024 11:56-0500 Body weight 84.82 kg Mikey Singh MD Work Phone: [facility] 03-09-2024 11:56-0500 Diastolic blood pressure 86 mm[Hg] Mikey Singh MD Work Phone: [facility] 03-09-2024 11:56-0500 Heart rate 64 /min Mikey Singh MD Work Phone: [facility] 03-09-2024 11:56-0500 Respiratory rate 18 /min Mikey Singh MD Work Phone: [facility] 03-09-2024 11:56-0500 SaO2% (BldA) [Mass fraction] 98 % Mikey Singh MD Work Phone: [facility] 03-09-2024 11:56-0500 Systolic blood pressure 146 mm[Hg] Mikey Singh MD Work Phone: [facility] 02-01-2024 11:25-0400 Body height 160 cm Mikey Singh MD Work Phone: [facility] 02-01-2024 11:25-0400 Body mass index (BMI) [Ratio] 33.13 kg/m2 Mikey Singh MD Work Phone: [facility] 02-01-2024 11:25-0400 Body temperature 97.11 [degF] Mikey Singh MD Work Phone: [facility] 02-01-2024 11:25-0400 Body weight 84.82 kg Mikey Singh MD Work Phone: [facility] 02-01-2024 11:25-0400 Diastolic blood pressure 86 mm[Hg] Mikey Singh MD Work Phone: [facility] 02-01-2024 11:25-0400 Heart rate 68 /min Mikey Singh MD Work Phone: [facility] 02-01-2024 11:25-0400 Respiratory rate 22 /min Mikey Singh MD Work Phone: [facility] 02-01-2024 11:25-0400 SaO2% (BldA) [Mass fraction] 98 % Mikey Singh MD Work Phone: [facility] 02-01-2024 11:25-0400 Systolic blood pressure 160 mm[Hg] Mikey Singh MD Work Phone: [facility] Healthcare Encounters Encounter Date Encounter Type Care Provider Facility Start: 06-12-2024 End: 06-13-2024 Refill Mikey Singh MD Work Phone: [facility] Comment on above: Primary insomnia Start: 06-07-2024 End: 06-07-2024 ambulatory Douglas NGUYEN Facility:[facility] Start: 06-07-2024 End: 06-07-2024 Patient encounter procedure Douglas NGUYEN [facility] [place] Start: 06-06-2024 End: 06-06-2024 Clinisync Result Encounter [...] insomnia; Primary hypertension (CMS/HCC) Start: 05-29-2024 ambulatory [facility] Facility: [facility] [place] Start: 05-26-2024 End: 05-26-2024 Bamboo flowsheet Mikey [...] disease), lumbar Start: 02-07-2024 End: 02-07-2024 ambulatory [facility] Start: 02-01-2024 End: 02-01-2024 Bamboo flowsheet Mikey [...] Start: 01-27-2024 Emergency department patient visit [facility] Start: 01-27-2024 Emergency department patient visit [facility] Start: 01-27-2024 End: 01-28-2024 Evaluation and management of inpatient [facility] Start: 01-27-2024 End: 01-29-2024 Clinisync Result Encounter Generic External Data Provider [facility] External Department Unsolicited Start: 01-27-2024 End: 01-29-2024 Clinisync Result Encounter Generic External Data Provider [facility] External Department Unsolicited Start: 12-27-2023 End: 12-28-2023 Refill Mikey Singh MD Work Phone: [facility] Comment on above: Chronic pain of [...] 07-04-2025 Glaucoma screening Diabetes: R etinopathy Screening [facility] Start: 06-07-2025 Screening for malign ant neoplasm of breast Mammogram [facility] Start: 03-09-2025 Medicare Annual Wellness (AWV) Medicare Annual Wellness (AWV) [facility] Start: 01-26-2025 Urine screening for protein Diabetes: Urine Protein Screening [facility] Start: 11-29-2024 Urine screening for protein Diabetes: Urine Protein Screening [facility] Start: 11-23-2024 End: 11-23-2024 Patient encounter procedure 11/23/2024 10:15 AM EDT Office Visit [facility] [address] [place] [address] Mikey Singh MD [address] [place] [phone] [facility] Start: 06-01-2024 Hemoglobin A1c measurement Diabetes: Hemoglobin A1C [facility] Start: 05-26-2024 End: 05-26-2025 Hemoglobin A1c/Hemoglobin.total in Blood Hemoglobin A1c Lab Routine Type 2 diabetes mellitus with hyperglycemia, without long-term current use of insulin ([facility]) Expected: 05/26/2024 (Approximate), Expires: 05/26/2025 [facility] Work Phone: Comment on above: Expected: 05/26/2024 (Approximate), Expires: 05/26/2025 Start: 05-26-2024 End: 07-24-2025 MG Breast - bilateral Screening Bilateral screening mammogram Imaging Routine Breast cancer screening by mammogram Expected: 05/26/2024, Expires: 07/24/2025 [facility] Comment on above: Expected: 05/26/2024 , Expires: 07/24/2025 Start: 05-26-2024 End: 05-26-2024 Patient encounter procedure 05/26/2024 9:45 AM EST Office Visit [facility] [address] [place] [address] Mikey Singh MD [address] [place] [address] Arrived [facility] Comment on above: Arrived Start: 05-23-2024 End: 05-23-2024 Patient encounter procedure 05/23/2024 10:45 AM EST Office Visit [facility] [address] [place] [address] Mikey Singh MD [address] [place] [phone] [facility] Start: 05-12-2024 Screening for malign ant neoplasm of breast Mammogram [facility] Start: 03-09-2024 End: 03-09-2024 Patient encounter procedure 03/09/2024 11:45 AM EST [facility] [address] [place] [address] Mikey Singh MD [address] [place] [phone] Arrived [facility] Comment on above: Arrived Start: 02-01-2024 End: 02-01-2024 Patient encounter procedure 02/01/2024 11:30 AM EDT Office Visit [facility] [address] [place] [address] Mikey Singh MD [address] [place] [phone] Arrived [facility] Comment on above: Arrived Start: 01-02-2024 Influenza vaccination Influenza Vacc ine (#1) [facility] Healthcare Start: 11-25-2023 End: 11-25-2023 Patient encounter procedure 11/25/2023 11:15 AM EDT Office Visit [facility] [address] [place] [address] Mikey Singh MD [address] [place] [phone] [facility] Start: 01-01-2023 Influenza vaccination Influenza Vacc ine (#1) [facility] Start: 12-04-1974 Urine screening for protein Diabetes: Urine Protein Screening [facility] Start: 12-04-1965 Glaucoma screening Diabetes: [...] Payer Category Payer Private Health Insurance [id number] 2024 Private Health Insurance CLI [id number] 2020 Medicare [id number] 2020 Unknown BCBS BCBS xxxxxx [id number] 2020-Present [phone] [address] [place] [address] [id number] 2009 Unknown [id number] 1959 Medicare [id number] 1959 Medicare [id number] 1955 Unknown [id number] 93 1955 Unknown [id number] 93 1955 Unknown [id number] 93 1955 Unknown [id number] 259 1955 Unknown [id number] 259 1955 Unknown [id number] 259 1955 Unknown [id number] 259 1955 Unknown [id number] 259 1955 Unknown [id number] 27 1955 Unknown [id number] 27 Social History Date Type Detail Facility Start: 05-10-2023 End: 12-01-2023 Tobacco smoking status [facility] Ex-smoker [facility] Start: 05-03-1983 End: [...] to any clubs or organizations such as adventism groups, unions, fraternal or athletic groups, or [...] got money to buy more. Often true [facility] Functional Status Date Assessment Result Facility 06-07-2024 Functional Status N/A [facility] General Surgery [place] Clinical Notes 01-27-2024 to 06-13-2024 Telephone Encounter - Mikey Singh MD - 06/13/2024 11:55 AM ESTTelephone Encounter - Mikey Singh MD - 06/13/2024 11:55 AM ESTTelephone Encounter - Mikey Singh MD - 05/29/2024 3:10 PM EST Note Date & Type Note Facility 06-13-2024 Telephone encounter Note [facility] 06-13-2024 Miscellaneous Notes documented in this encounter [facility] 06-07-2024 Note General Surgery Offi ce/Clinic Note Chief Complaint consultation for colonoscopy HPI Staff 68 year old female presents on consultation from Dr. Singh for surveillance colonoscopy. Patient reports she had a colonoscopy 3 years ago while living in [place]; 9 polyps were removed at this time [...] repair, last colonoscopy 3 years ago in [place], patient reports that 9 polyps were removed; [...] tab(s), Oral, Krista (more content not included)... [facility] Comment on above: Result Comment: Elec tronically Signed By: PATRICK MORRISON, Douglas Dumas\Date and Time Signed: 06/07/24 14:51 EST 05-29-2024 Telephone encounter Note [facility] 05-29-2024 Miscellaneous Notes documented in this encounter [facility] 05-26-2024 History of Presen t illness [...] to General Surgery documented in this encounter [facility] 04-13-2024 Note Addendum created 04/25 by Rafael Hoyos MD Attestation recorded in Intraprocedure, Flowsheet accepted, Intraprocedure Attestations filed [facility] 03-09-2024 History of Presen t illness [...] losartan to BID. documented in this encounter [facility] 03-02-2024 Telephone encounter Note Patient called states her bp has been running high on the diastolic number, between 85-100 regularly, and was inquiring if she needed a med. [facility] 03-02-2024 Miscellaneous Notes Patient called states her bp has been running high on the diastolic number, between 85-100 regularly, and was inquiring if she needed a med. documented in this encounter [facility] 02-07-2024 Note Attestation signed by Isabel [...] past 36 hour(s)). No follow-ups on file. [facility] 02-07-2024 Note Subjective Patient ID: Fatuma [...] past 36 hour(s)). No follow-ups on file. [facility] 02-01-2024 History of Presen t illness [...] 68 y.o. female who presents for Follow-up ([facility] f/up surgery/). Hospital follow up from 01/26-01/27 for incarcerated hernia. Developed sudden onset of RLQ abdominal pain. Severe pain in abdomen and radiated to back. Developed nausea and emesis. To ER and CT showed incarcerated hernia with SBO. No surgery available and transferred to [facility]. Taken to OR for repair and [...] 0.5 % cream documented in this encounter [facility] 01-28-2024 Note 01/28/24 0886 Admission Assessment Questions Verify insurance with patient [...] Status Interested Does the patient have a case specialist assigned to them through their insurance? No Living Arrangement (Current/Prior to Hospitalization) Private residence (Home, 1st floor apartment with 5 steps to enter.) Does the patient have history of HHC or SNF? Yes (HHC: When living in [place].) Assistive Device Walker;Cane Patient's goal for discharge [...] you able to send link and activate [facility]? Yes (Patient states she already received a link to sign up already.) [facility] 01-28-2024 Note Patient: Fatuma mcguire Procedure Summary Date: 01/27/24 Room / Location: [facility] OPERATING ROOM 04 / [facility] Operating Room Anesthesia Start: 2355 Anesthesia [...] per anesthesia protocol. No notable events documented. [facility] 01-28-2024 Note Airway Date/Time: 01/28/2024 12:00 AM Urgency: elective Airway not difficult General Information and Staff Patient location during procedure: OR Anesthesiologist: Rafael Hoyos MD Resident/WEB COMMUNICATIONS SPECIALIST/CAA: Raul Pascal MD Performed: resident/WEB COMMUNICATIONS SPECIALIST/CAA Indications and Patient Condition Indications for [...] 1 Number of other approaches attempted: [address] [facility] 01-27-2024 Note Patient: Fatuma mcguire Procedure Information Date/Time: 01/27/242209 Procedure: REPAIR, HERNIA, LAPAROSCOPIC POSSIBLE OPEN (Right) Location: [facility] OPERATING ROOM 04 / [facility] Operating Room Surgeons: Shelley Munoz MD [...] Plan discussed with resident. Additional Equipment Requests [facility] Evaluation + Plan note No data available for this section [facility] General Surgery [place] Evaluation note Diagnosis Hypokalemia- Primary Hypopotassemia Primary [...] hyperglycemia, without long-term current use of insulin (CMS/[facility])- Primary Benign hypertension (CMS/HCC) Essential hypertension, benign Generalized anxiety disorder (CMS/HCC) Generalized anxiety disorder Degenerative cervical spinal stenosis Spinal stenosis in cervical region DDD (degenerative disc disease), lumbar Degeneration of lumbar or lumbosacral intervertebral disc Primary insomnia Persistent disorder of initiating or maintaining sleep Screening mammogram for breast cancer Type 2 diabetes mellitus with hyperglycemia, without long-term current use of insulin (CMS/[facility])- Primary Benign hypertension (CMS/HCC) Essential hypertension, benign Acquired hypothyroidism (CMS/HCC) Unspecified hypothyroidism Primary insomnia Persistent disorder of initiating or maintaining sleep DDD (degenerative disc disease), lumbar Degeneration of lumbar or lumbosacral intervertebral disc Degenerative cervical spinal stenosis Spinal stenosis in cervical region Encounter for long-term current use of medication Dyslipidemia (/[facility]) Other and unspecified hyperlipidemia Colon cancer screening [...] Unspecified essential hypertension documented in this encounter [facility] HealthcareEvaluation note* Diagnosis Type 2 diabetes [...] or maintaining sleep documented in this encounter [facility] HealthcareEvaluation note* Diagnosis Type 2 diabetes [...] or maintaining sleep documented in this encounter [facility] Discharge instructions No data available for this section [facility] General Surgery [place] Progress note No data available for this section [facility] General Surgery [place] Summary Purpose Family History No Family History [...] DATE CREATED AUTHOR AUTHOR'S ORGANIZ ATION 03/11/2024 [facility] EPIC DATE CREATED AUTHOR AUTHOR'S ORGANIZ ATION 04/16/2024 [facility] DATE CREATED AUTHOR AUTHOR'S ORGANIZ ATION 06/09/2024 [facility] [place] [facility] Reason for Visit (unrecogniz ed section and content) Reason Onset Date Comments Med Refill 06/14/2023 Reason Comments Follow-up [facility] f/up surgery Reason Comments Follow-up Blood pressure high Reason Comments Med Refill Reason Onset Date Comments Med Refill 05/01/2024 Reason Comments Follow-up Right side painBalan ce issues Reason Comments New Med Request Reason Onset Date Comments Med Refill 05/30/2024 Care Teams (unrecognized sec tion and content) Photographic Editor Relationship Specialty Start Date End Date Mikey Singh MD PCP - General Family Medicine 11/13/22 Photographic Editor Relationship Specialty Start Date End Date Mikey Singh MD PCP - General Family Medicine 11/13/22 Photographic Editor Relationship Specialty Start Date End Date Mikey Singh MD [address] [place] [address] PCP - General Family Medicine 11/25/23 Photographic Editor Relationship Specialty Start Date End Date Mikey Singh MD [address] [place] [address] PCP - General Family Medicine 11/25/23 Photographic Editor Relationship Specialty Start Date End Date Mikey Singh MD [address] [place] [address] PCP - General Family Medicine 11/25/23 Photographic Editor Relationship Specialty Start Date End Date Mikey Singh MD [address] [place] [address] PCP - General Family Medicine 11/25/23 Photographic Editor Relationship Specialty Start Date End Date Mikey Singh MD [address] [place] [address] PCP - General Family Medicine 11/25/23 Photographic Editor Relationship Specialty Start Date End Date Mikey Singh MD [address] [place] [address] PCP - General Family Medicine 11/25/23 Photographic Editor Relationship Specialty Start Date End Date Mikey Singh MD [address] [place] [address] PCP - General Family Medicine 11/25/23 Photographic Editor Relationship Specialty Start Date End Date Mikey Singh MD [address] [place] [address] PCP - General Family Medicine 11/25/23 Photographic Editor Relationship Specialty Start Date End Date Mikey Singh MD [address] [place] [address] PCP - General Family Medicine 11/25/23 Photographic Editor Relationship Specialty Start Date End Date Mikey Singh MD [address] [place] [address] PCP - General Family Medicine 11/25/23 Photographic Editor Relationship Specialty Start Date End Date Mikey Singh MD [address] [place] [address] PCP - [facility] 11/25/23 Photographic Editor Relationship Specialty Start Date End Date Mikey Singh MD [address] [place] [address] PCP - [facility] 11/25/23 Photographic Editor Relationship Specialty Start Date End Date Mikey Singh MD [address] [place] [address] PCP - [facility] 11/25/23 Photographic Editor Relationship Specialty Start Date End Date Mikey Singh MD [address] [place] [phone] PCP - [facility] 11/25/23 FOR RECORDS PERTAINING TO PATIENTS [...] BE BASED ON THE PRIMARY CLINICAL RECORDS. [facility] [employer]. provides no warranty or guarantee of the accuracy or completeness of information in this document.
[2024-06-28 07:05] VITALS: BP 132/86; PULSE 71; TEMP 36.1; O2SAT 97; BMI 31.2
[2024-06-28 07:27] LABS: Glucometer 99 mg/dL (74-106)
[2024-06-28] MEDS: 0.9 % SODIUM CHLORIDE 500 ML 50 ML IV (07:34)
[2024-06-28 08:25] VITALS: BP 128/74; PULSE 62; TEMP 36.6; O2SAT 98
[2024-06-28 08:40] VITALS: BP 137/68; PULSE 62; O2SAT 97
[2024-06-28 08:55] VITALS: BP 139/63; PULSE 57; TEMP 36.7; O2SAT 97
== END 2024-06-28 08:55 | disposition home or self-care (01) ==
PROVIDERS: PCP Family Medicine; Visit Provider Surgery
PROC: (CPT 45378; principal; 2024-06-28 08:00)
DX: Z86.0101 Personal history of adenomatous and serrated colon polyps (principal); K57.30 Diverticulosis of large intestine without perforation or abscess without bleeding; I10 Essential (primary) hypertension; E78.5 Hyperlipidemia, unspecified; E11.9 Type 2 diabetes mellitus without complications; K21.9 Gastro-esophageal reflux disease without esophagitis; F41.1 Generalized anxiety disorder; Z90.710 Acquired absence of both cervix and uterus; Z90.722 Acquired absence of ovaries, bilateral; Z87.891 Personal history of nicotine dependence; Z98.51 Tubal ligation status; J44.9 Chronic obstructive pulmonary disease, unspecified
CPT/HCPCS: 45378; 36415; 82948; J2704

== ENCOUNTER 2024-12-18 16:43 | Outpatient (RCR) | payer MEDICARE, SELFPAY | END 2025-01-06 06:59 | disposition home or self-care (01) | LOC: PT 16:43 | PROVIDERS: PCP Family Medicine; Visit Provider Family Medicine | DX: R26.81 Unsteadiness on feet (principal) | CPT/HCPCS: 97110; 97112; 97162 ==

== ENCOUNTER 2025-03-16 09:20 | Outpatient (OUT) | payer MEDICARE, SELFPAY ==
--- OUTSIDE RECORDS SUMMARY | 2025-03-15 06:56 | XMS_ITS | Continuity of Care Document ---
Author Organization [facility] Address [address] [place] [address] Phone Care Team Providers Care Flooring Salesperson Name Role Phone Mikey Preston MD Primary Care Provider Mikey Preston MD Attending Provider [phone] Care Teams Patient Care Team Team Status: Active Member Role/Relationship Status Dates Mikey Preston MD Primary Care Provider Active Patient Care Team Team Status: Inactive Member Role/Relationship Status Dates Mikey Preston MD Primary Care Provider Active S tart: March 15, 2025 End: March 15, 2025Mar MONTY Prestonttending ProviderActiveStart: March 15, 2025 End: March 15, 2025 Chief Complaint and Reason for Visit Reason for Visit Admit Date Benign hypertension March 15, 2025 10:51am Medicare annual wellness visit, subseque nt March 15, 2025 10:51am Allergies, Adverse Reactions, Alerts Allergen Type Severity Reaction Last Updated Verified Status ALEKS Inhibitors Allergy Unknown Unknown Reaction Nove mbmaynor 2024 10:54am Yes Active lisinopril Allergy Unknown Cough March 14, 2025 10:54am Yes Active nortriptyline Allergy Unknown Unknown Reaction Novem grace 2024 10:54am Yes Active Penicillins Allergy Unknown Unknown Reaction Novembe r 2024 10:54am Yes Active verapamil Allergy Unknown Arrhthmia March 14, 2025 10:54am Yes Active Influenza Vaccines Allergy Unknown Unknown Reaction March 14, 2025 10:54am No Active Wound Dressing Adhesive Allergy Unknown Unknown Reaction March 14, 2025 10:54am No Active Social History Smoking Status Status Start Date End Date Date of Observa tion Ex-smoker (finding) March 15, 2025 11:18am Observation Status Observation Response Date of Response Legal Sex [facility] (finding) [facility] 1955 Problems Active Problems Problem Diagnosis/Recorded Date Onset Date Stat Primary open angle glaucoma March 14, 2025 10:56a m Unknown Active Medicare annual wellness vis it, subsequent March 15, 2025 11:26am Unknown Active Primary insomnia March 14, 2025 10:56am Unknown Active Generalized anxiety disorder March 14, 2025 10:56 am Unknown Active Acquired hypothyroidism March 14, 2025 10:55am Un known Active Benign hypertension March 14, 2025 10:55am Unknow n Active Dyslipidemia March 14, 2025 10:55am Unknown Active Encounter for long-term (cur rent) use of medications March 15, 2025 11:25am Unknown Active DDD (degenerative disc disease), lumbar March 05, 2025 2:07pm Unknown Active Vertigo March 14, 2025 10:57am Unknown Active Type 2 diabetes mellitus wit h hyperglycemia, without long-term current use of insulin March 14, 2025 10:57am Unknown Active Chronic pain of both knees March 14, 2025 10:55am Unknown Active Degenerative cervical spinal stenosis March 14, 025 10:55am Unknown Active Gastroesophageal reflux disease March 14, 2025 10 :56am Unknown Active Spigelian hernia March 14, 2025 10:56am Unknown Active Hypokalemia March 14, 2025 10:56am Unknown Active Medications Medication Status Dose Units Route Directions Qty Days Refills S tart Date Stop Date End Date Reason(s) Instructions Adherence Triamcinolone Acetonide 0.5 % cream Active 1 APPLIC TOPI BELLA Twice daily 15 2October 2024 11:00pmUnknownTramadol 50 mg ursgctSvbzwb75UOWUEdwau 6 hours as needed for ajwx140526Ilcskrgo 3rd, 2025 12:00amDegeneration of intervertebral disc of lumbar regionUnknownLosartan 50 mg jofoxvDeughv69FYZQJyzru dailyMarch 14, 2025 12:00amComplies with drug therapyCelecoxib 200 mg slmpwxxYemnuv142FM POTwice dailyMarch 14, 2025 12:00amComplies with drug therapyFluoxetine 40 mg vfesoxnUgzvbi28THXXEyqghPvafdvma 12th, 2025 12:00amComplies with drug therapy Carvedilol 25 mg fybefgOdlobd31HITXIrxil dailyPaint[facility] 2024 12:00ammust administer with a meal/foodComplies with drug therapyPotassium Chloride 20 mEq tablet,ER particles/yztwavpbLqijas34RGGZUDpncf dailyPaintsville Arh Hospital 2024 12:00am Complies with drug therapyTrazodone 100 mg phozlhSdgylw190TACXOwxgl at bedtime as neededNorth [facility]2024 12:00amComplies with drug therapyMeclizine 25 mg fxhmljKetmmo53JMJAOcxu times daily as needed for dizzinessPaintsville Arh Hospital 2024 12:00amComplies with drug therapyPantoprazole 40 mg tablet,delayed release (DR/EC)Nnlowd60DIBWLthknSkvkwpyp 2024 12:00amComplies with drug therapy Buspirone 30 mg memlmqSpxnhj42FFVZJczgh dailyPaintsville Arh Hospital 2024 12:00amComplies with drug therapyEstradiol 2 mg wmikbcIwhhsh1MGIGDioguMlumwouh 2024 12:00amComplies with drug therapyZolpidem 10 mg usrfinXzeenh02EXPRFzlfk at bedtimePaintsville Arh Hospital 2024 12:00amComplies with drug therapyAlbuterol Sulfate 90 mcg/actuation HFA aerosol ijmarlnZoamnb6UMTVARUJSDUNHUQkusl 4 hours as needed March 14, 2025 12:00amComplies with drug therapyAmlodipine (Norvasc) 5 mg htfkduUguval8WEQLAauyr510Tztddiyh 2024 12:00amComplies with drug therapy Vital Signs Vital Reading Result Reference Range Collection Date/Time Height 63 [in_i] March 15, 2025 11:39jjUwtezx75.00 kgPaintsville Arh Hospital 2024 11:13amBody Pksgefzpybu80.5 [degF]97.6-99.0[facility] 2024 11:13amHeart Rate12 /min 60-100[facility] 2024 11:13amRespiratory rate12 /pbe05-98Wnjtmeek 2024 11:13amOxygen saturation by Pulse ckvoympe10 %95-100[facility] 2024 11:13am BP Osuukyjx894 mm[Hg]100-140[facility] 2024 11:13amBP Kcdgkmrkm04 mm[Hg] 60-100March 15, 2025 11:13amBMI (Body Mass Index)32.4 kg/r1JmookgoxMarch 15, 2025 11:13am Advance Directives Advance Directive Response Recorded Date/ Time Advance Directives No February 24, 2024 8:41am Insurance Providers Guarantor Ella Keith [place] Address [address] [address]Contact Info.Home Phone: Payer Group Member ID Coverage Type Subscriber Relationship to Subscriber Effective Date Expiration Date MMO Id: [id number] A [place] Id: [id number] [address] [id number] Home Phone: Email: [email or web address] A [place] Id: [id number] [address] [id number] Home Phone: Email: [email or web address] [facility] [address] [place] [address] Work Phone: [phone] Inna Choir Director Id: [id number] [address] [id number] Home Phone: Email: [email or web address] Encounter Location(s) Arrival/Admit Date Discharge/Departure Date Discharge/Departure Disposition Provider(s) Departed Physician/ Provider Office Visit -[facility] Family Medicine [place] March 15, 2025 10:51am March 15, 2025 11:55am Discharged to home care or self care (routine discharge) Mikey Preston MD Recent Diagnosis Onset Date Admit Date Benign hypertension Unknown March 10:51am Medicare annual wellness visit, subsequent Unkno wn March 15, 2025 10:51am Assessments Diagnosis Onset Date Resolution Status Admit Date Benign hypertension acuteNov2024 10:51amMedicare annual wellness visit, subsequentacute March 15, 2025 10:51am Plan of Treatment Author [facility]key Preston [facility] SouthAuthoredNovember 2024 11:40amDue for labs. Discussed proper diet and regular aerobic exercise.?? Need aerobic exercise 5-6 days a week for 30 minutes at a time.?? Smaller portions and limit total calories.?? Colonoscopy every 10 years.?? Tetanus every 10 years.?? Advised not to smoke.?? BP elevated at home and again today and add norvasc. Monitor PRN. Discussed DASH diet. Future Tests Future scheduled test information is unavailable Pending Tests Test Name Ordered Date Scheduled Date Comprehensive Metabolic Panel March 15 11:31am Future Visits Future appointment information is unavailable Future Procedures Procedure Name Ordered Date Scheduled Date A1C with Estimated Average Glu March 15 11:31am Complete Blood Count Auto DiffNovember 2024 11:31amLipid PanelNovember 2024 11:31amMicroAlb Creat Ratio,UNovember 2024 11:31amFree T4 (Free Thyroxine)March 15, 2025 11:31amThyroid Stimulating HormoneNovember 2024 11:31am Future Medications Future medication information is unavailable Patient Instructions Patient instructions are unavailable
--- OUTSIDE RECORDS SUMMARY | 2025-03-16 09:29 | XMS_ITS | Patient Health Record ---
Author Organization [facility] [place] Address [address] [place] [address] Care Team Providers Care Cafeteria Or Lunchroom Checker Name Role Phone Bin CALDERON Dominik Primary Care Provider Unavaila ble Reason For Referral No Information Medications Medication SIG (Take, Route, Frequency, Duration) Notes Start Date End Date Status Bystolic 10 mg ActiveCeleBREX 200 mg ActiveJanuvia 100 mg Active Nbxigup6305/03/1899ActiveProtonix 40 mg ActiveLyrica 150 mg ActiveAmbien 10 mg; Duration: 30 days ActivepredniSONE 10 mgQOD Active Plan Of Treatment No Information Insurance Providers Payer Name Payer Address Payer Phone Subscriber Number Group Number Insured Name Patient Relationship to Insured Coverage Start Date Coverage End Date [employer]ESS PPO PLUS LOCAL PLAN [address] [place] [address] [id number] Ella Nance Self - patient is the insured 2
--- OUTSIDE RECORDS SUMMARY | 2025-03-16 09:29 | XMS_ITS | Patient Health Record ---
Author Organization [facility] Address [address] [id number] Care Team Providers Care Access Rn Name Role Phone ANDERS BOONE Unavailable [phone] Reason For Referral No Information Medications Medication SIG (Take, Route, Frequency, Duration) Notes Start Date End Date Status oxyCODONE HCl 5 MG Oral ActiveEstradiol 2 ORNnsv28ActivepredniSONE 20 BEVujz29ActivePantoprazole Sodium 40 CIHajr9009/17/2016 ActivebusPIRone HCl 30 WUCnap43ActivePeriogard 0.12 %Mouth/Hyfwqw78ActivetraZODone HCl 100 XVQjvo8109/17/2016 ActivePotassium Chloride Lyla ER 20 LREBflt89Active Pravastatin Sodium 40 CQTkho41ActiveLosartan Potassium 50 MG OralActivetraZODone HCl 50 JQXeas02Active Carvedilol 25 WAAruh05ActiveKlor-Con M20 20 QUALizj0809/17/2016 ActiveCelecoxib 200 GLKalk45Active hydroCHLOROthiazide 25 ERGbbd43ActivebusPIRone HCl 15 MGOral ActivetraMADol HCl 50 OUMbjq28Active Cyclobenzaprine HCl 10 LKAdst07ActiveZolpidem Tartrate 10 MG OralActiveSulfamethoxazole-Trimethoprim 800-160 MGOral ActivebuPROPion HCl ER (XL) 300 TICxpb89 Active Plan Of Treatment No Information Medical (General) History Surgical History Surgery Date(Month/Year) Cervical spine surgery c-6 replacement HysterectomyKnee surgery arthroscopyTonsillectomy
--- OUTSIDE RECORDS SUMMARY | 2025-03-16 09:30 | XMS_ITS | Clinical Summary ---
Author Organization [facility] Address [address] [place] [address] Care Team Providers Care Fisher Diver Net Name Role Phone Mikey Preston MD Primary Care Provider Allergies Active AllergyReactionsCriticalityNoted DateCommentsAce InhibitorsUnknown 05/05/2023Influenza EuelfvxjJazpcsh91/03/6347IukyiaewweHmlna87/03/2024 LdmqmkzheercmDbatrfz56/03/8561ObduxixwbusFaaspgq31/03/2024VerapamilOther 05/05/2023 Arrhythmia Wound Dressing Wborzawb91/01/2024 Medications MedicationSigDispense QuantityRefillsLast FilledStart DateEnd DateStatus albuterol HFA 90 mcg/act inhaler Indications:SOB (shortness of breath)Inhale 2 puffs every 4 (four) hours if needed for wheezing 18 g 4Active celecoxib (CeleBREX) 200 MG capsule Indications:DDD (degenerative disc disease), lumbarTake 1 capsule (200 mg) by mouth in the morning and 1 capsule (200 mg) before bedtime. 180 capsule 5Active estradiol (Estrace) 2 MG tablet Indications:Gastroesophageal reflux disease without esophagitisTake 1 tablet (2 mg) by mouth Daily 90 tablet 5Active potassium chloride CR (Klor-Con M20) 20 MEQ ER tablet Indications:HypokalemiaTake 1 tablet (20 mEq) by mouth in the morning and 1 tablet (20 mEq) before bedtime. 180 tablet 5Active traZODone (Desyrel) 100 MG tablet Indications:Primary insomniaTake 1 tablet (100 mg) by mouth at bedtime 90 tablet 5Active carvedilol (Coreg) 25 MG tablet Indications:Primary hypertensionTake 1 tablet (25 mg) by mouth in the morning and 1 tablet (25 mg) in the evening. Take with meals. 180 tablet 5Active rosuvastatin (Crestor) 20 MG tablet Indications:DyslipidemiaTAKE 1 TABLET BY MOUTH AT BEDTIME 90 tablet 5Active Additional Information Patient not taking.Reported on 11/23/2024 losartan (Cozaar) 50 MG tablet Indications:Benign hypertensionTAKE 1 TABLET IN THE MORNING AND TAKE 1 TABLET BEFORE BEDTIME 180 tablet 5Active pantoprazole (ProtoNix) 40 MG EC tablet Indications:Gastroesophageal reflux disease without esophagitisTake 1 tablet (40 mg) by mouth Daily 90 tablet 5Active triamcinolone (Kenalog) 0.5 % cream Indications:Allergic contact dermatitis due to adhesivesApply topically in the morning and in the evening and before bedtime. 60 g 5Active zolpidem (Ambien) 10 MG tablet Indications:Primary insomniaTake 1 tablet (10 mg) by mouth as needed at bedtime for sleep 90 tablet 5Active meclizine (Antivert) 25 MG tablet Indications:VertigoTake 1 tablet (25 mg) by mouth 4 (four) times a day as needed for dizziness 180 tablet 5Active busPIRone (Buspar) 30 MG tablet Indications:Generalized anxiety disorderTake 1 tablet (30 mg) by mouth in the morning and 1 tablet (30 mg) before bedtime. 180 tablet 5Active FLUoxetine (PROzac) 40 MG capsule Indications:Generalized anxiety disorderTake 1 capsule (40 mg) by mouth Daily 90 capsule 5Active traMADol (Ultram) 50 MG tablet Indications:DDD (degenerative disc disease), lumbarTake 1 tablet (50 mg) by mouth 4 (four) times a day as needed for severe pain 120 tablet Expired Active Problems ProblemNoted DateDiagnosed DateSpigelian mzupaf1702/01/2024 Assessment & Plan (08/25/2024 9:49 AM EDT): Doing well after surgery and follow up with surgeon. Assessment & Plan (02/01/2024 12:08 PM EDT): Doing well after surgery and follow up with specialists. Encounter for long-term current use of wryopckeyv09/25/2024enign hypertension 05/10/2023 Assessment & Plan (11/23/2024 10:50 AM EDT): BP controlled and monitor PRN. Assessment & Plan (05/26/2024 10:44 AM EST): BP controlled and monitor PRN. Assessment & Plan (03/09/2024 12:21 PM EST): BP elevated over the past few weeks and monitor PRN. Possibly related to sodium intake. Discussed DASH diet and patient will reduce sodium. If BP remains elevated then increase losartan to BID. Assessment & Plan (02/01/2024 12:08 PM EDT): BP elevated and monitor PRN. Possibly related to postop pain but if remains elevated will increase losartan. Assessment & Plan (11/25/2023 12:23 PM EDT): BP controlled and monitor PRN. Assessment & Plan (05/10/2023 12:28 PM EST): BP controlled and monitor PRN. Chronic pain of both knees05/10/2023DD (degenerative disc disease), lumbar 05/10/2023 Assessment & Plan (11/23/2024 10:50 AM EDT): Pain stable and use ultram PRN. Continue home PT exercises. Assessment & Plan (05/26/2024 10:44 AM EST): Pain stable and use ultram PRN. Continue home PT exercises. Assessment & Plan (11/25/2023 12:23 PM EDT): Pain stable and use ultram PRN. Continue home PT exercises. Assessment & Plan (05/10/2023 12:28 PM EST): Pain stable and use ultram PRN. Continue home PT exercises. Xgmyicfmwibz93/08/2024Generalized anxiety ocopuvgu53/08/2024 Assessment & Plan (11/23/2024 10:51 AM EDT): Worsening symptoms and increase prozac. Warned will take 2-3 weeks to notice improvement in symptoms. Continue buspar. Assessment & Plan (05/26/2024 10:45 AM EST): Symptoms stable with prozac and continue. Assessment & Plan (05/10/2023 12:28 PM EST): Symptoms stable with prozac and continue. Gastroesophageal reflux rzopdve7005/10/20236772Tplzkhlfcac56/08/2024cquired gisgppssxscltk61/08/0525Dkgcjgy94/08/2024 Assessment & Plan (11/23/2024 10:51 AM EDT): Use meclizine PRN. Type 2 diabetes mellitus with hyperglycemia, without long-term current use of wvpyunr7805/10/2023 Assessment & Plan (11/23/2024 10:51 AM EDT): Not checking BS but last A1C 5.1. Stick to ADA diet and limit carbs. Assessment & Plan (05/26/2024 10:45 AM EST): Not checking BS and due for A1C. Stick to ADA diet and limit carbs. Assessment & Plan (11/25/2023 12:23 PM EDT): Not checking BS and due for A1C. Stick to ADA diet and limit carbs. Assessment & Plan (05/10/2023 12:29 PM EST): Not checking BS and due for A1C. Primary ufqkfbqv70/08/2024 Assessment & Plan (11/23/2024 10:51 AM EDT): Sleeping well with medication and continue. Assessment & Plan (05/26/2024 10:45 AM EST): Sleeping well with medication and continue. Assessment & Plan (11/25/2023 12:23 PM EDT): Sleeping well with medication and continue. Assessment & Plan (05/10/2023 12:29 PM EST): Sleeping well with medication and continue. Degenerative cervical spinal hjosjlfg57/08/2024 Assessment & Plan (11/23/2024 10:50 AM EDT): Pain stable and use ultram PRN. Continue home PT exercises. Assessment & Plan (05/26/2024 10:45 AM EST): Pain stable and use ultram PRN. Continue home PT exercises. Assessment & Plan (11/25/2023 12:23 PM EDT): Pain stable and use ultram PRN. Continue home PT exercises. Assessment & Plan (05/10/2023 12:28 PM EST): Pain stable and use ultram PRN. Continue home PT exercises. Primary open angle rzcpsijk27/13/2014 Overview (05/10/2023): s/p TBX Resolved Problems ProblemNoted DateDiagnosed DateResolved DateContact dermatitis due to adhesives Assessment & Plan (02/01/2024 12:08 PM EDT): Developed rash after patches and use steroid cream. Family History Medical HistoryRelationNameCommentsDiabetesBrotherRobertAlcohol abuseFather RobertCancerFatherRobertLung cancerVision lossMaternal GrandmotherElvaCancer MotherAudreyLung cancerHeart diseaseMotherAudreyHypertensionMotherAudreyCOPD SisterLeslieRelationNameStatusCommentsBrotherRobertFatherRobertMaternal GrandmotherElvaMotherAudreySisterLeslie Social History Tobacco UseTypesPacks/DayYears UsedDateSmoking Tobacco: FormerCigarettes 05/03/1983 - 2013Smokeless Tobacco: Never Tobacco Cessation:Counseling Given: Not Answered Alcohol UseStandard Drinks/WeekCommentsNever0 (1 standard drink = 0.6 oz pure alcohol)B1300 Health LiteracyAnswerDate RecordedHow often do you need to have someone help you when you read instructions, pamphlets, or other written material from your doctor or pharmacy?Never11/23/2023Social Connection and Isolation PanelAnswerDate RecordedIn a typical week, how many times do you talk on the phone with family, friends, or neighbors?More than three times a week 11/23/2023How often do you get together with friends or relatives?Twice a week 11/23/2023How often do you attend moravian or religion services?More than 4 times per year11/23/2023o you belong to any clubs or organizations such as moravian groups, unions, fraternal or athletic groups, or school groups?No11/23/2023How often do you attend meetings of the clubs or organizations you belong to?Never 11/23/2023re you , , , , never , or living with a partner?Sbbuqqeq46/23/2024UDIT-CAnswerDate RecordedQ1: How often do you have a drink containing alcohol?Never11/23/2023Q2: How many drinks containing alcohol do you have on a typical day when you are drinking?Patient does not drink11/23/2023Q3: How often do you have six or more drinks on one occasion?Never11/23/2023Overall Financial Resource Strain (CARDIA)AnswerDate RecordedHow hard is it for you to pay for the very basics like food, housing, medical care, and heating?Somewhat hard11/23/2023[facility] [place] [facility] - Occupational Stress QuestionnaireAnswerDate RecordedDo you feel stress - tense, restless, nervous, or anxious, or unable to sleep at night because yourmind is troubled all the time - these days?Very much11/23/2023 Exercise Vital SignAnswerDate RecordedOn average, how many days per week do you engage in moderate to strenuous exercise (like a brisk walk)?0 days11/23/2023On average, how many minutes do you engage in exercise at this level?0 min 11/23/2023Hunger Vital SignAnswerDate RecordedWithin the past 12 months, you worried that your food would run out before you got the money to buymore.Often true11/23/2023Within the past 12 months, the food you bought just didn't last and you didn't have money to get more.Often true11/23/2023RAPARE - TransportationAnswerDate RecordedIn the past 12 months, has lack of transportation kept you from medical appointments or from getting medications?No 11/23/2023In the past 12 months, has lack of transportation kept you from meetings, work, or from getting things needed for daily living?No11/23/2023 Housing Stability Vital SignAnswerDate RecordedIn the last 12 months, was there a time when you were not able to pay the mortgage or rent on time?No11/23/2023In the past 12 months, how many times have you moved where you were living?0 11/23/2023t any time in the past 12 months, were you homeless or living in a penitentiary (including now)?No11/23/2023CommentsUnknownSex and Gender InformationValueDate RecordedSex Assigned at BirthNot on fileLegal SexFemale 07/15/2022 6:56 PM EDTGender IdentityNot on fileSexual OrientationNot on file Last Filed Vital Signs Vital SignReadingTime TakenCommentsBlood Wxxffxbg774/62011/23/2024 10:18 AM EDT Pzikz6708/24/2025 10:18 AM VGRHdzwvampsaw65.4 ??C (97.5 ??F)11/23/2024 10:18 AM EDTRespiratory Rcnt063811/23/2024 10:18 AM EDTOxygen Ayxavcgjmz65%11/23/2024 10:18 AM EDTInhaled Oxygen Concentration--Fmqazu83.8 kg (187 lb)11/23/2024 10:18 AM EPRWfvvtz412 cm (5' 3 )11/23/2024 10:18 AM EDTBody Mass Index33.13011/23/2024 10:18 AM EDT Plan of Treatment Not on file Insurance * Guarantor: Ella Nance AAccount TypeRelation to PatientDate of BirthPhone Billing AddressPersonal/UdkdxeQird67/04/1956 [address] [address] Care Teams Team MemberRelationshipSpecialtyStart DateEnd Date Mikey Preston MD PCP - GeneralFamily Medicine11/25/23
--- OUTSIDE RECORDS SUMMARY | 2025-03-16 09:30 | XMS_ITS | Clinical Summary ---
Author Organization [facility] Address [address] [place] [address] Care Team Providers Care Hat Braider Name Role Phone Mikey Preston MD Primary Care Provider Allergies Active AllergyReactionsCriticalityNoted DateCommentsBrimonidineOther: See Fodujzxx27/23/2013 Eyes became injected and medication did not work SlslpgnfqxDgxbu79/27/2008Nortriptyline GgtEnojj69/27/2008PenicillinsOther: See Nwbklito06/27/2008 As child, reaction not known Ogelpdyfxwx67/27/2008 Medications MedicationSigDispense QuantityRefillsLast FilledStart DateEnd DateStatus celecoxib(CELEBREX 200 MG CAP) Indications:Unspecified glaucoma(365.9)Take one(1) capsule daily. Active tramadol hcl(ULTRAM 50 MG TAB) Indications:Unspecified glaucoma(365.9)Take one (1) or two(2) tablets every six(6) hours as needed for pain.ctive estradiol (ESTRACE) 2 mg tablet Take 1 tablet by mouth once daily.ctive pantoprazole (PROTONIX) 40 mg tablet Take 1 tablet by mouth once daily.ctive hydrochlorothiazide 10 mg/mL susp Take by mouth twice daily.Active losartan (COZAAR) 50 mg tablet 12/31/2014ctive carvedilol (COREG) 25 mg tablet 01/11/2015ctive busPIRone (BUSPAR) 15 mg tablet 12/27/2014ctive citalopram (CELEXA) 20 mg tablet 11/29/2014ctive Active Problems ProblemNoted DateDiagnosed DateHistory of trabeculectomy - both eyes01/18/2015 Diabetes mellitus type 2 without /18/2015PVD (posterior vitreous detachment)01/18/2015Primary open angle glaucoma - Both Eyes12/13/2013 Overview (12/13/2013): s/p TBX Lens replaced by other means - Both Eyes12/13/2013 Resolved Problems ProblemNoted DateDiagnosed DateResolved DateVitreous degeneration - Right Eye Vitreous degeneration - Left Eye12/13/Type 2 diabetes mellitus without retinopathy (HCC) - Both EyesOther vitreous etwcagbjq87Senile cataract, jlkkbszoovs11/20/2013 12/13/2013 Family History Medical HistoryRelationCommentsCancerFatherHeartFatherCancerMotherHeartMother RelationStatusCommentsFatherMother Social History Tobacco UseTypesPacks/DayYears UsedDateSmoking Tobacco: Every IgfAifuqhgehs546 Smokeless Tobacco: NeverAlcohol UseStandard Drinks/WeekCommentsNo0 (1 standard drink = 0.6 oz pure alcohol)CommentsNoSex and Gender InformationValue Date RecordedSex Assigned at BirthNot on fileLegal HvqMgxhxj62/02/2012 8:14 AM ESTGender IdentityNot on fileSexual OrientationNot on file Last Filed Vital Signs Vital SignReadingTime TakenCommentsBlood Btekrjvw616/7310 9:28 AM EDT Hlrni021102/15/2013 9:28 AM GRWRjzxdnwpamv85.3 ??C (97.3 ??F)02/15/2013 7:49 AM EDTRespiratory Feev1000 9:28 AM EDTOxygen Lrodcgjxfc05%02/15/2013 9:28 AM EDTInhaled Oxygen Concentration--Hhbsay89.6 kg (180 lb)02/01/2013 9:41 AM EDT Dsahxu234.6 cm (5' 4 )01/23/2013 9:19 AM EDTBody Mass Index30.909 9:19 AM EDT Plan of Treatment Health MaintenanceDue DateLast DoneCommentsAnxiety Zbjyijzuc78/04/1974Depression Gbacqklqo92/04/1974Hepatitis C Ghtuprolm61/04/1974DTaP,Tdap,Td Vaccine (1 - Tdap)12/04/1974Mammogram Kphfvjikj90/04/1996CT Mczascoyvjzj40/04/2001Cologuard (FIT-DNA)12/04/20002443Grwbgmeypjj36/04/2001Colorectal Cancer Xqsnbqdko46/04/2001 Fecal Occult Blood12/04/2000Lipid Otytxmilq51/04/9111Ichmneleyybpc84/04/2001 Pneumococcal Vaccine: 50+ (1 of 1 - PCV)12/04/2005Shingrix Vaccine (1 of 2) 12/04/2005Diabetes Yrsekjdqa36, 11/03/2011one Density Oazwvimtb68/04/2021dvance Directive Bnsdrdsltd74/01/2025ovid-19 Vaccine (1 - 2024- season)2025Influenza Vaccine (#1)2025RSV Vaccine (1 - 1-dose 75+ series)12/04/2030 Medical Devices ImplantedTypeAreaManufacturerDevice IdentifierShelf Expiration DateModel / Serial / LotLens Iol 0 D +9 Riri +1.5 Cyl - [id number] [facility] - [employer] [id number]/31/[id number] 9.0 / [id number] / Lens Iol 0 D +15.5 Riri +2.25 - [id number] Implanted:Qty: 1 [facility] - Lens [employer] WIOZOPEF55/30/[id number] 15.5 / [id number] / Procedures Procedure NamePriorityDate/TimeAssociated DiagnosisCommentsHEMOGLOBIN C7TLprurri 01/23/2013 10:45 AM EDT Senile cataract, unspecified Other specified pre-operative examination Diabetes mellitus from Last 3 Months or Most Recently Relevant to Health Maintenance Results * HGB A1C (01/23/2013 10:45 AM EDT)ComponentValueRef RangeTest MethodAnalysis TimePerformed AtPathologist SignatureHemoglobin A1C4.94.0 - 6.0 %[facility] LABORATORYComment: [place] Diabetes Association guidelines indicate that patients with HgbA1c in the range 5.7-6.4% are at increased risk for development of diabetes, and intervention by lifestyle modification may be beneficial. HgbA1c greater or equal to 6.5% is considered diagnostic of diabetes. Estimated Average Kczikaw82ph/dLBETHESDA NORTH HOSPITAL MAIN LABORATORYComment: eAG: (Estimated average glucose) is a calculated value from HgbA1c and is sales representative jewelry of the average blood glucose level in the last 2-3 month period. Specimen (Source)Anatomical Location / LateralityCollection Method / Volume Collection TimeReceived TimeBlood specimen (specimen)BLOOD SPECIMEN / Unknown 01/23/2013 10:45 AM EDT01/23/2013 10:47 AM EDT Narrative Authorizing ProviderResult TypeResult StatusCandace Beefra PA-CLABORATORYFinal ResultPerforming OrganizationAddressCity/State/ZIP CodePhone Number [facility] [address] [place] [address] from Last 3 Months or Most Recently Relevant to Health Maintenance Insurance Care Teams Team MemberRelationshipSpecialtyStart DateEnd Date Mikey Preston MD PCP - GeneralFamily Medicine07/23/15
--- OUTSIDE RECORDS SUMMARY | 2025-03-16 09:30 | XMS_ITS | Clinical Summary ---
Author Organization [facility] Address [address] [place] [address] Care Team Providers Care Kayak Maker Name Role Phone Mikey Preston MD Primary Care Provider [phone] Allergies Active AllergyReactionsCriticalityNoted DateCommentsAce InhibitorsUnknown 01/27/2024dhesive Tape-DpbcicpdaEdxsOlu12/07/2024Influenza A (H5n1) Virus Vaccine Monoval (18y Up)Crijqjc8001/27/20240030GurwsxufdcAnwsfxs54/26/2024Nickel Kqyryrl8901/27/20244678LbagoqoxiwaKfqtiji22/26/0487CzvsolciyBbahrda80/26/2024 Medications MedicationSigDispense QuantityRefillsLast FilledStart DateEnd DateStatus busPIRone (Buspar) 30 mg tablet Take by mouth two times daily.Active carvedilol (Coreg) 25 mg tablet Take 25 mg by mouth with breakfast and with evening meal.Active celecoxib (CeleBREX) 200 mg capsule Take 200 mg by mouth two times daily.Active estradiol (Estrace) 2 mg tablet Take 2 mg by mouth in the morning.Active FLUoxetine (PROzac) 20 mg capsule Take 20 mg by mouth in the morning.Active losartan (Cozaar) 50 mg tablet Take 50 mg by mouth two times daily.Active meclizine (Antivert) 25 mg tablet Take 25 mg by mouth if needed in the morning, at noon, and at bedtime for dizziness.Active pantoprazole (ProtoNix) 40 mg EC tablet Take 40 mg by mouth before breakfast. Do not crush, chew, or split.Active potassium chloride CR (Klor-Con M10) 10 mEq ER tablet Take 20 mEq by mouth two times daily. Do not crush or chew.Active rosuvastatin (Crestor) 20 mg tablet Take 20 mg by mouth in the morning.Active traMADol (Ultram) 50 mg tablet Take 50 mg by mouth every 6 (six) hours if needed for severe pain (8-10 pain score).Active traZODone (Desyrel) 100 mg tablet Take 100 mg by mouth at bedtime.Active zolpidem CR (Ambien CR) 6.25 mg ER tablet Take 10 mg by mouth if needed at bedtime for sleep. Do not crush, chew, or split.Active albuterol 90 mcg/actuation inhaler Inhale 2 puffs every 6 (six) hours if needed for wheezing or shortness of breath.Active Active Problems ProblemNoted DateDiagnosed DateSpigelian jjtewd4907/18/2024Incarcerated hernia 01/27/2024 Family History Medical HistoryRelationNameCommentsDiabetesBrotherRobert JrCancerFatherROBERT CancerMotherAudreyHypertensionMotherAudreyCancerPaternal GrandfatherROBERTStroke Paternal GrandmotherElvaVision lossPaternal GrandmotherElvaCOPDSisterLESLIE RelationNameStatusCommentsBrotherRobert JrFatherROBERTMotherAudreyPaternal GrandfatherROBERTPaternal GrandmotherElvaSisterLESLIE Social History Tobacco UseTypesPacks/DayYears UsedDateSmoking Tobacco: CxadljGdytvphjql564Ciyv: 03/22/2024Smokeless Tobacco: Never Tobacco Cessation:Counseling Given: Not Answered Alcohol UseStandard Drinks/WeekCommentsNever0 (1 standard drink = 0.6 oz pure alcohol)[facility] UtilitiesAnswerDate RecordedIn the past 12 months has the [employer], gas, oil, or water [employer] threatened to shut off services in your home?No 01/28/2024Humiliation, Afraid, Rape, and Kick questionnaireAnswerDate Recorded Within the last year, have you been afraid of your partner or ex-partner?No 07/17/2024Emotionally AbusedNot on file07/17/2024Physically AbusedNot on file 07/17/2024Sexually AbusedNot on file07/17/2024Overall Financial Resource Strain (CARDIA)AnswerDate RecordedHow hard is it for you to pay for the very basics like food, housing, medical care, and heating?Not hard at all06/29/2024PHQ-2 AnswerDate RecordedPatient Health Questionnaire-2 Elxeb678Transportation AnswerDate RecordedIn the past 12 months, has lack of transportation kept you from medical appointments or from getting medications?No06/29/2024Lack of Transportation (Non-Medical)Not on file06/29/2024Housing Stability Vital Sign AnswerDate RecordedIn the last 12 months, was there a time when you were not able to pay the mortgage or rent on time?No06/29/2024Number of Times Moved in the Last YearNot on file06/29/2024t any time in the past 12 months, were you homeless or living in a [place] (including now)?No06/29/2024Hunger Vital Sign AnswerDate RecordedWithin the past 12 months, you worried that your food would run out before you got the money to buymore.Never true06/29/2024Ran Out of Food in the Last YearNot on file06/29/2024CommentsNoSex and Gender InformationValueDate RecordedSex Assigned at BirthNot on fileLegal SexFemale 01/27/2024 4:21 PM EDTGender IdentityNot on fileSexual OrientationNot on file Last Filed Vital Signs Vital SignReadingTime TakenCommentsBlood Scdttqqe190/6904 10:40 AM EDT Vwede9490 10:40 AM XMAQeosnhckyiq86.4 ??C (97.5 ??F)08/28/2024 10:40 AM EDTRespiratory Apgw803008/18/2024 5:20 PM EDTOxygen Rmjzkhixzb864%08/28/2024 10:40 AM EDTInhaled Oxygen Concentration--Pzalhy97.8 kg (182 lb 9.6 oz)08/28/2024 10:40 AM KPIGlvsry318 cm (5' 3 )08/28/2024 10:40 AM EDTBody Mass Index32.35 08/28/2024 10:40 AM EDT Plan of Treatment Health MaintenanceDue DateLast DoneCommentsCT Tggeafnvvwxb78/04/1956olonoscopy 1955olorectal Cancer Rganussws39/04/1956Diabetes: Hemoglobin A1C 1955FIT-DNA1955FIT1955FOBT1955Medicare Annual Wellness (AWV)1955 6889Hmghbijhcwbrd92/04/1956Diabetes: Retinopathy Sbeglwalq81/04/1966 Diabetes: Urine Protein Eizxpagem01/04/1975Adult Mwtjixz9012/04/1977Pneumococcal Vaccine: 50+ Years (1 of 1 - PCV)12/04/2005Zoster Vaccines (1 of 2)12/04/2005 COVID-19 Vaccine (1 - 2024- season)2025Influenza Vaccine (#1)2025 Depression Opvaxsfvs32/Fall Risk Idqckgdhq63/ Pachprufl33HIB VaccinesAged OutNo longer eligible based on patient's age to complete this topicHPV VaccinesAged OutNo longer eligible based on patient's age to complete this topicIPV VaccinesAged OutNo longer eligible based on patient's age to complete this topicMeningococcal B VaccineAged OutNo longer eligible based on patient's age to complete this topicMeningococcal VaccineAged OutNo longer eligible based on patient's age to complete this topic Rotavirus VaccinesAged OutNo longer eligible based on patient's age to complete this topic Medical Devices ImplantedTypeAreaManufacturerDevice IdentifierShelf Expiration DateModel / Serial / Jason,Progrip,[id number] - [id number] Implanted:Qty: 1 on 08/18/2024 by [facility] Luis [facility]MeshN/A: [id number] / / [id number] Insurance * Guarantor: Alvaro Nance TypeRelation to PatientDate of BirthPhone Billing AddressPersonal/ReivbvRaaa55/04/1956 [address] [facility] [address] [phone] Advance Directives * Full Code (Latest Code Status on File) Date ActivatedDate InactivatedComments08/18/2024 12:24 PM08/18/2024 7:48 PM * Full Code Date ActivatedDate InactivatedComments01/27/2024 9:44 PM01/28/2024 8:26 PM Care Teams Team MemberRelationshipSpecialtyStart DateEnd Date Mikey Preston MD [address] [place] [address] PCP - GeneralFamily Medicine01/28/24
--- OUTSIDE RECORDS SUMMARY | 2025-03-16 09:30 | XMS_ITS | Clinical Summary ---
Author Organization [employer] tem Address [facility] [place]-[id number] [address] [place] [address] Care Team Providers Care Quality Assurance Director Name Role Phone Mikey Preston MD Primary Care Provider [phone] Allergies Active AllergyReactionsCriticalityNoted BzvcXdsiwxdaVzfqomlythc82/16/2017Flu Vaccine 2011 (36 Mos+)(Pf)06/18/20162479Igiuonjnrl98/16/6194Cqphefflkjx33/16/2017 Ujfcysmhpws33/16/2017 Medications MedicationSigDispense QuantityRefillsLast FilledStart DateEnd DateStatus traMADol (ULTRAM) 50 mg tablet Take 50 mg by mouth 2 (two) times a day. Take two tabs twice a dayActive celecoxib (CeleBREX) 200 mg capsule Take 200 mg by mouth 2 (two) times a day.Active estradiol (ESTRACE) 2 mg tablet Take 2 mg by mouth daily.Active pantoprazole (PROTONIX) 40 mg EC tablet Take 40 mg by mouth daily.Active busPIRone (BUSPAR) 15 mg tablet Take 15 mg by mouth 2 (two) times a day.Active calcium carbonate-vitamin D3 (OSCAL 500 + D) 500 mg(1,250mg) -200 units per tablet Take 1 tablet by mouth daily. This is calcium with vitamin C4Csxwtm carvedilol (COREG) 25 mg tablet Take 25 mg by mouth 2 (two) times a day.Active hydroCHLOROthiazide (HYDRODIURIL) 25 mg tablet Take 25 mg by mouth daily.Active losartan (COZAAR) 50 mg tablet Take 50 mg by mouth daily.Active magnesium oxide 500 mg tablet Take 500 mg by mouth daily.Active zolpidem (AMBIEN) 10 mg tablet Take 5 mg by mouth nightly.Active potassium chloride (K-DUR,KLOR-CON) 20 MEQ CR tablet Take 20 mEq by mouth 2 (two) times a day. Two tablets by mouth twice a dayActive Active Problems ProblemNoted DateDiagnosed DateSpondylosis of thoracic region without myelopathy or lcayewgrzemld89/16/2017Back muscle spasm06/18/2016Spinal stenosis in cervical lzksco4006/18/2016 Social History Tobacco UseTypesPacks/DayYears UsedDateSmoking Tobacco: FormerAlcohol Use Standard Drinks/WeekCommentsNo0 (1 standard drink = 0.6 oz pure alcohol) ChildcareAnswerDate WjlacjgtFxkvdaeciPfpaswt92/12/2019EmploymentAnswerDate RjgrdxyjOythxnzonkFcnabrg91/12/2019Purpose - LifeAnswerDate RecordedPurpose and direction in ygyoMaoifkb04/11/2021CommentsUnknownSex and Gender InformationValueDate RecordedSex Assigned at BirthNot on fileLegal SexFemale 12/06/2014 11:37 AM EDTGender IdentityNot on fileSexual OrientationNot on file Plan of Treatment Health MaintenanceDue DateLast DoneCommentsDepression Dujdrxznu29/04/1968Tobacco Thdhwidui12/04/1968Adult BMI Tswnjpwge09/04/1974DTaP,Tdap and Td Vaccines (1 - Tdap)12/04/1974Zoster (Shingles) Vaccine (1 of 2)12/04/2005Fall Risk Screening 12/04/2020Influenza Kupxadm6901/01/2025RSV ( or age 60+ yrs) (1 - 1-dose 75+ series)12/04/2030 Medical Devices Not on file Insurance Care Teams Team MemberRelationshipSpecialtyStart DateEnd Date Mikey Preston MD [address] [place] [address] PCP - GeneralFamily Medicine07/04/24
--- OUTSIDE RECORDS SUMMARY | 2025-03-16 09:30 | XMS_ITS | Patient Health Record ---
Author Organization [facility] vices Address [address] [place], [place] [id number] Care Team Providers Care Valet Parking Attendant Name Role Phone Jaja Rivero [phone] Allergies Allergen (clinical drug ingredient) Drug/Non Drug Allergy documented on EMR Reaction Allergy Type Onset Date Status PenicillinUnknownDrug AllergyActive Reason For Referral No Information Medications Medication SIG (Take, Route, Frequency, Duration) Notes Start Date End Date Status Carvedilol 25 MG Oral; Duration: 90 Days ActiveRosuvastatin Calcium 20 MGOral; Duration: 90 DaysActiveCelecoxib 200 MG Oral; Duration: 90 DaysActivePotassium Chloride Lyla ER 20 MEQOral; Duration: 90 DaysActivePantoprazole Sodium 40 MGOral; Duration: 90 DaysActiveLosartan Potassium 50 MG1 tablet Orally Once a day; Duration: 30 day(s)10/27/2023ctive FLUoxetine HCl 20 MGOral; Duration: 90 DaysActiveZolpidem Tartrate 10 MGOral; Duration: 90 DaysActiveEstradiol 2 MGOral; Duration: 90 DaysActivetraMADol HCl 50 MGOral; Duration: 30 DaysActive Social History Tobacco Use: Social History Observation Description Date Details (start date - stop date) Never Smoker NA - NA Sex Assigned At : Social History Observation Description Sex Assigned At Female PRAPARE Question Answer Notes Date Completed/Updated: 10/22/2023 jessica nt entered data What is your current housing situation? I have housing patient entered data Are you worried about losing your housing? No patient entered data What is the highest level of school that you have finished? More than high school patient entered data What is your current work situation? Otherwise unemployed but not seeking work (ex. student, retired, disabled, unpaid primary certified caregiver) patient entered data In the past year, have you o r any family members you live with been unable to get any of the following when it was really needed? Check all that apply Food,Clothing,Utilities,Medicin e or any health care (medical, dental, mental health or vision),Phone,I do not have problems meeting my needs Has lack of transportation kept you from medical appointments, meetings, work or from getting things needed for daily living?NoHow often do you see or talk to people that you care about and feel close to? (For example: talkingto friends on the phone, visiting friends or family, going to buddhist or club meetings)More than 5 times a weekpatient entered dataHow stressed are you? Stress is when someone feels tense, nervous, anxious, or can't sleep at nightbecause their mind is troubledSomewhatpatient entered dataIn the past year have you spent more than 2 nights in a row in a halfway, skilled nursing, longterm center, orjuvenile correctional facility?Nopatient entered dataAre you a refugee?Nopatient entered dataWhat country are you from?[place]patient entered dataDo you feel physically and emotionally safe where you currently live?Yespatient entered dataIn the past year, have you been afraid of your partner or ex-partner?I have not had a partner in the past yearpatient entered data PRAPARE Score:7Tobacco Control (Standard) Question Answer Notes Tobacco use: Nonsmoker Additional Findings: Tobacco non-userCurrent nonsmoker Problems Problem Type SNOMED Code ICD Code Onset Dates Problem Status W/U Status Risk Notes Problem BMI 30+ - obesity (675674264) BMI 32.0-32 .9,adult (Z68.32) Activeconfirmed Plan Of Treatment No Information Insurance Providers Payer Name Payer Address Payer Phone Subscriber Number Group Number Insured Name Patient Relationship to Insured Coverage Start Date Coverage End Date SFS [id number] responsible [address], [place] [address] [phone] [id number] Quick - patient is the /
[2025-03-16 10:15] LABS: Microalbum Creatinine Ratio Ur 7.9 mg/g (0.0-29.9)
[2025-03-16 10:19] LABS: Hematocrit 43.9 % (36.0-48.0); Hemoglobin 14.3 g/dL (12.0-16.0); Immature Granulocytes Abs Auto 0.02 10^3/uL (0.00-0.03); Immature Granulocytes Pct Auto 0.3 % (0.0-0.5); Lymphocytes Absolute Auto 1.2 10^3/uL (1.2-3.8); Mean Corpuscular HGB Conc 32.6 g/dL (29.9-35.2); Mean Corpuscular Hemoglobin 28.4 pg (26.7-34.0); Mean Corpuscular Volume 87.1 fL (81.0-99.0); Platelet Count 225 10^3/uL (150-450); Red Blood Count 5.04 10^6/uL (4.20-5.40); White Blood Count 6.8 10^3/uL (4.0-11.0)
[2025-03-16 11:41] LABS: Anion Gap 10.1; Blood Urea Nitrogen 11.0 mg/dL (7.0-18.0); Carbon Dioxide 27.9 mmol/L (21.0-32.0); Chloride 102 mmol/L (98-107); Estimated GFR (African America >60 (>=60 mL/min/1.73m^2); Estimated GFR (Non-African Ame >60 (>=60 mL/min/1.73m^2); Glucose 106 mg/dL (74-106); Potassium 4.0 mmol/L (3.5-5.1); Sodium 136 mmol/L (136-145)
[2025-03-16 11:42] LABS: Alanine Aminotransferase 21 U/L (14-59); Albumin Globulin Ratio 0.8; Albumin Level 3.3 g/dL (3.4-5.0); Alkaline Phosphatase 67 U/L (46-116); Aspartate Amino Transferase 14 U/L (15-37); Calcium 8.7 mg/dL (8.5-10.1); Cholesterol 292 mg/dL (<=200); Globulin 3.9 g/dL; Total Protein 7.2 g/dL (6.4-8.2); Triglycerides 233 mg/dL (<=150); VLDL CHOLESTEROL 46.6 mg/dL
[2025-03-16 11:43] LABS: HDL Cholesterol 75 mg/dL (40-60); Thyroid Stimulating Hormone 2.703 uIU/mL (0.358-3.740)
== END 2025-03-16 09:21 | disposition home or self-care (01) ==
PROVIDERS: PCP Family Medicine; Visit Provider Family Medicine
DX: E11.65 Type 2 diabetes mellitus with hyperglycemia (principal); E03.9 Hypothyroidism, unspecified; E78.5 Hyperlipidemia, unspecified; Z79.899 Other long term (current) drug therapy
CPT/HCPCS: 36415; 80053; 80061; 82043; 82570; 83036; 84439; 84443; 85025